=== PATIENT | female | born 1985 | race Caucasian/White ===

== ENCOUNTER 2017-09-01 23:05 | Inpatient (IN) | payer OTHER ==
[2017-09-02] MEDS ORDERED: DEXTROSE 5%-0.45% NACL 1,000 ML IV
[2017-09-02] MEDS ORDERED: VANCOMYCIN IV PER PHARMACY XX
[2017-09-02] MEDS: DEXTROSE 5%-0.9% NACL 1,000 ML IV ×3 (00:18→18:12)
[2017-09-02] MEDS: morphine 2 MG INJ IV (00:18)
[2017-09-02] MEDS: PIPER-TAZO 3.375 GM IV (PMX) 50 ML IVPB ×4 (00:22→18:12)
[2017-09-02] MEDS: HYDROmorphONE 1 MG/ML SYG IV ×4 (01:17→23:30)
[2017-09-02] MEDS: PANTOPRAZOLE 40 MG INJ IV (05:02)
[2017-09-02] MEDS: HYDROmorphONE 2 MG/ML SYG IV ×5 (07:16→21:26)
[2017-09-02] MEDS: VANCOMYCIN 1.5 GM in DEXTROSE 5% 500 ML IVPB ×2 (09:53→20:32)
[2017-09-02] MEDS: morphine (ER) 30 MG TAB PO ×2 (11:47→20:31)
[2017-09-02] MEDS: ENOXAPARIN 40 MG/0.4 ML SYG SC (11:53)
[2017-09-02] MEDS ORDERED: DOCUSATE SODIUM 100 MG CAP PO (12:00)
[2017-09-02 12:18] LABS: ADD MAN DIFF? NO
[2017-09-02 12:20] LABS: BASOPHILS % 0.4 % (0.0-2.0); EOSINOPHILS % 0.7 % (0.0-7.0); HEMATOCRIT 36.7 % (37.0-47.0); HEMOGLOBIN 11.8 g/dl (12.0-16.0); LYMPHOCYTES # 0.6 10^3/ul (0.8-2.9); LYMPHOCYTES % 11.1 % (15.0-51.0); MEAN CORPUSCULAR HEMOGLOBIN 28.9 pg (29.0-33.0); MEAN CORPUSCULAR HGB CONC 32.2 g/dl (32.0-37.0); MEAN PLATELET VOLUME 9.3 fl (7.4-10.4); MONOCYTE # 0.4 10^3/ul (0.3-0.9); MONOCYTES % 6.8 % (0.0-11.0); NEUTROPHIL # 4.4 10^3/ul (1.6-7.5); NEUTROPHILS % 80.6 % (39.0-77.0); PLATELET COUNT 218 10^3/UL (140-415); RED BLOOD COUNT 4.08 10^6/ul (4.20-5.40); RED CELL DISTRIBUTION WIDTH 13.6 % (11.5-14.5)
[2017-09-02 12:20] LABS: WHITE BLOOD COUNT 5.4 10^3/ul (4.8-10.8)
[2017-09-02 12:44] LABS: ANION GAP 11 (8-16); BLOOD UREA NITROGEN 6 mg/dl (7-20); CALCIUM 9.3 mg/dl (8.4-10.2); CARBON DIOXIDE 31 mmol/L (21-31); CHLORIDE 102 mmol/L (97-110); CREATININE 0.57 mg/dl (0.44-1.00); GLUCOSE 97 mg/dl (70-220); POTASSIUM 3.6 mmol/L (3.5-5.1); SODIUM 140 mmol/L (135-144)
[2017-09-02] MEDS: BISACODYL (EC) 5 MG TAB PO (14:06)
[2017-09-02] MEDS: ONDANSETRON 4 MG INJ IV ×2 (14:06→22:11)
[2017-09-02] MEDS: HYDROCODONE/APAP (10/325) TAB PO ×2 (18:15→22:11)
[2017-09-03] MEDS: PIPER-TAZO 3.375 GM IV (PMX) 50 ML IVPB ×4 (00:22→18:00)
[2017-09-03] MEDS: DIPHENHYDRAMINE 50 MG INJ IV (00:27)
[2017-09-03] MEDS: HYDROmorphONE 2 MG/ML SYG IV ×5 (02:02→20:46)
[2017-09-03] MEDS: HYDROCODONE/APAP (10/325) TAB PO ×3 (04:01→12:01)
[2017-09-03 05:35] LABS: CREATININE 0.55 mg/dl (0.44-1.00)
[2017-09-03 05:35] LABS: BLOOD UREA NITROGEN 3 mg/dl (7-20)
[2017-09-03] MEDS: PANTOPRAZOLE (EC) 40 MG TAB PO (06:30)
[2017-09-03] MEDS: morphine (ER) 30 MG TAB PO ×2 (07:48→21:00)
[2017-09-03] MEDS: ENOXAPARIN 40 MG/0.4 ML SYG SC (09:00)
[2017-09-03] MEDS: IOHEXOL 300MG/ML 150 ML BTL (09:31)
[2017-09-03] MEDS: SOD CHLORIDE 0.9% 100 ML (09:31)
[2017-09-03 10:14] LABS: INR 0.99; PROTIME 13.2 Sec (11.9-14.9)
[2017-09-03 10:15] LABS: PARTIAL THROMBOPLASTIN TIME 24.7 Sec (25.0-35.0)
[2017-09-03] MEDS: LIDOCAINE 1% (MPF) 5 ML VIAL SC (11:00)
[2017-09-03] MEDS: LORAZEPAM 2 MG INJ IV ×3 (11:00→21:15)
[2017-09-03] MEDS ORDERED: VITAMIN A & D 5 GM OINT PACKET TOP (12:05)
[2017-09-03] MEDS: DEXTROSE 5%-0.9% NACL 1,000 ML IV (12:07)
[2017-09-03] MEDS: HYDROmorphONE 1 MG/ML SYG IV (16:03)
[2017-09-03] MEDS ORDERED: TRIAMCINOLONE ACET 40 MG/ML INJ (17:30)
[2017-09-03] MEDS ORDERED: DEXAMETHASONE 4 MG/ML 1 ML INJ ×2 (17:30→18:27)
[2017-09-03] MEDS ORDERED: METOCLOPRAMIDE 10 MG INJ (17:40)
[2017-09-03] MEDS ORDERED: MIDAZOLAM 1 MG/ML 2 ML INJ (17:40)
[2017-09-03] MEDS ORDERED: FENTAnyl 50 MCG/ML VIAL (17:41)
[2017-09-03] MEDS ORDERED: PROPOFOL 20 ML (17:41)
[2017-09-03] MEDS: POLYMYXIN/BACITRACIN 1L IRRIG (17:53)
[2017-09-03] MEDS: BUPIVACAINE 0.25%/EPI (SDV) 30 ML INJ (18:48)
[2017-09-03] MEDS ORDERED: MEPERIDINE 25 MG INJ IV (19:00)
[2017-09-03] MEDS ORDERED: DIPHENHYDRAMINE 50 MG INJ IV (19:00)
[2017-09-03] MEDS ORDERED: HYDROmorphONE (0.2 MG/ML) 10ML SYG IV ×2 (19:00)
[2017-09-03] MEDS: HYDROmorphONE (0.2 MG/ML) 10ML SYG IV ×2 (19:48→20:03)
[2017-09-03] MEDS: ONDANSETRON 4 MG INJ IV (19:52)
[2017-09-04] MEDS: DIPHENHYDRAMINE 50 MG INJ IV ×2 (00:47→18:58)
[2017-09-04] MEDS: HYDROCODONE/APAP (10/325) TAB PO ×4 (00:47→21:45)
[2017-09-04] MEDS: PIPER-TAZO 3.375 GM IV (PMX) 50 ML IVPB ×5 (00:47→23:03)
[2017-09-04] MEDS: HYDROmorphONE 2 MG/ML SYG IV ×8 (01:35→23:02)
[2017-09-04] MEDS: morphine (ER) 30 MG TAB PO ×3 (02:52→15:30)
[2017-09-04 05:31] LABS: ADD MAN DIFF? NO
[2017-09-04] MEDS: PANTOPRAZOLE (EC) 40 MG TAB PO (05:42)
[2017-09-04 05:44] LABS: WHITE BLOOD COUNT 6.2 10^3/ul (4.8-10.8)
[2017-09-04 05:44] LABS: ABNORMAL IP MESSAGE 1; HEMATOCRIT 35.4 % (37.0-47.0); HEMOGLOBIN 11.4 g/dl (12.0-16.0); LYMPHOCYTES # 0.3 10^3/ul (0.8-2.9); LYMPHOCYTES % 5.2 % (15.0-51.0); MEAN CORPUSCULAR HEMOGLOBIN 28.2 pg (29.0-33.0); MEAN CORPUSCULAR HGB CONC 32.2 g/dl (32.0-37.0); MEAN CORPUSCULAR VOLUME 87.6 fl (82.0-101.0); MEAN PLATELET VOLUME 9.8 fl (7.4-10.4); MONOCYTE # 0.1 10^3/ul (0.3-0.9); MONOCYTES % 1.1 % (0.0-11.0); NEUTROPHIL # 5.8 10^3/ul (1.6-7.5); NEUTROPHILS % 93.4 % (39.0-77.0); PLATELET COUNT 218 10^3/UL (140-415); RED BLOOD COUNT 4.04 10^6/ul (4.20-5.40); RED CELL DISTRIBUTION WIDTH 12.8 % (11.5-14.5)
[2017-09-04 06:01] LABS: POSITIVE DIFF @See below
[2017-09-04 06:25] LABS: MAGNESIUM 1.7 mg/dl (1.7-2.5)
[2017-09-04 06:25] LABS: PHOSPHORUS 4.2 mg/dl (2.5-4.9)
[2017-09-04 06:40] LABS: ANION GAP 15 (8-16); BLOOD UREA NITROGEN 5 mg/dl (7-20); CALCIUM 9.1 mg/dl (8.4-10.2); CARBON DIOXIDE 27 mmol/L (21-31); CHLORIDE 102 mmol/L (97-110); CREATININE 0.48 mg/dl (0.44-1.00); GLUCOSE 179 mg/dl (70-220); POTASSIUM 4.3 mmol/L (3.5-5.1); SODIUM 140 mmol/L (135-144)
[2017-09-04] MEDS: DEXTROSE 5%-0.9% NACL 1,000 ML IV ×3 (07:19→21:34)
[2017-09-04] MEDS: LORAZEPAM 2 MG INJ IV ×3 (08:30→21:33)
[2017-09-04] MEDS ORDERED: BARIUM SULF 2% 450 ML BTL (BERRY SMOOTHIE) PO ×3 (09:30→11:30)
[2017-09-04] MEDS: BARIUM SULF 2% 450 ML BTL (BERRY SMOOTHIE) PO (12:30)
[2017-09-04] MEDS: ONDANSETRON 4 MG INJ IV (12:32)
[2017-09-04] MEDS: SOD CHLORIDE 0.9% 100 ML (14:20)
[2017-09-04] MEDS: IOHEXOL 300MG/ML 150 ML BTL (14:20)
[2017-09-04] MEDS ORDERED: BISACODYL 10 MG SUPP PR (14:30)
[2017-09-04] MEDS: DULOXETINE 30 MG CAP DR PO (15:13)
[2017-09-04] MEDS: GABAPENTIN 300 MG CAP PO ×2 (15:13→21:34)
[2017-09-05] MEDS: HYDROmorphONE 2 MG/ML SYG IV ×3 (02:57→08:04)
[2017-09-05 05:28] LABS: ADD MAN DIFF? NO
[2017-09-05 05:47] LABS: BASOPHILS % 0.2 % (0.0-2.0); HEMATOCRIT 36.4 % (37.0-47.0); HEMOGLOBIN 11.8 g/dl (12.0-16.0); LYMPHOCYTES # 0.7 10^3/ul (0.8-2.9); LYMPHOCYTES % 12.6 % (15.0-51.0); MEAN CORPUSCULAR HEMOGLOBIN 28.8 pg (29.0-33.0); MEAN CORPUSCULAR HGB CONC 32.4 g/dl (32.0-37.0); MEAN CORPUSCULAR VOLUME 88.8 fl (82.0-101.0); MEAN PLATELET VOLUME 9.7 fl (7.4-10.4); MONOCYTE # 0.4 10^3/ul (0.3-0.9); MONOCYTES % 6.8 % (0.0-11.0); NEUTROPHIL # 4.7 10^3/ul (1.6-7.5); NEUTROPHILS % 80.1 % (39.0-77.0); PLATELET COUNT 220 10^3/UL (140-415); RED CELL DISTRIBUTION WIDTH 13.2 % (11.5-14.5)
[2017-09-05 05:47] LABS: WHITE BLOOD COUNT 5.9 10^3/ul (4.8-10.8)
[2017-09-05] MEDS: PANTOPRAZOLE (EC) 40 MG TAB PO (05:49)
[2017-09-05] MEDS: PIPER-TAZO 3.375 GM IV (PMX) 50 ML IVPB (05:49)
[2017-09-05 06:27] LABS: ANION GAP 17 (8-16); BLOOD UREA NITROGEN 4 mg/dl (7-20); CARBON DIOXIDE 28 mmol/L (21-31); CHLORIDE 106 mmol/L (97-110); CREATININE 0.56 mg/dl (0.44-1.00); GLUCOSE 101 mg/dl (70-220); POTASSIUM 3.8 mmol/L (3.5-5.1); SODIUM 147 mmol/L (135-144)
[2017-09-05] MEDS: DEXTROSE 5%-0.9% NACL 1,000 ML IV ×2 (08:00→13:02)
[2017-09-05] MEDS: GABAPENTIN 300 MG CAP PO (08:51)
[2017-09-05] MEDS: DULOXETINE 30 MG CAP DR PO (08:52)
[2017-09-05] MEDS: morphine (ER) 30 MG TAB PO (08:52)
[2017-09-05] MEDS: DOCUSATE SODIUM 100 MG CAP PO (08:52)
[2017-09-05] MEDS: ONDANSETRON 4 MG INJ IV ×2 (08:55→23:43)
[2017-09-05] MEDS: HYDROmorphONE 0.2 MG/ML PCA IV ×4 (10:03→23:47)
[2017-09-05] MEDS: ACETAMINOPHEN 1000MG/100ML IV 100 ML IVPB ×3 (11:13→21:21)
[2017-09-05] MEDS: CYCLOBENZAPRINE 10 MG TAB PO ×3 (11:34→21:21)
[2017-09-06] MEDS: ACETAMINOPHEN 1000MG/100ML IV 100 ML IVPB ×4 (03:11→22:02)
[2017-09-06] MEDS: HYDROmorphONE 0.2 MG/ML PCA IV ×6 (03:23→21:27)
[2017-09-06] MEDS: PANTOPRAZOLE (EC) 40 MG TAB PO (05:17)
[2017-09-06] MEDS ORDERED: morphine (ER) 30 MG TAB PO (07:49)
[2017-09-06] MEDS: DOCUSATE SODIUM 100 MG CAP PO (07:50)
[2017-09-06] MEDS: CYCLOBENZAPRINE 10 MG TAB PO ×3 (07:50→20:00)
[2017-09-06] MEDS: DULOXETINE 30 MG CAP DR PO (07:50)
[2017-09-06] MEDS: morphine (ER) 30 MG TAB PO (07:51)
[2017-09-06] MEDS: DEXTROSE 5%-0.9% NACL 1,000 ML IV ×2 (08:35→23:48)
[2017-09-06] MEDS: LORAZEPAM 2 MG INJ IV ×2 (11:58→21:17)
[2017-09-06] MEDS: ONDANSETRON 4 MG INJ IV (18:14)
[2017-09-07] MEDS: DIPHENHYDRAMINE 50 MG INJ IV (01:07)
[2017-09-07] MEDS: HYDROmorphONE 0.2 MG/ML PCA IV ×7 (01:11→23:50)
[2017-09-07] MEDS: DEXTROSE 5%-0.9% NACL 1,000 ML IV ×2 (01:12→18:40)
[2017-09-07] MEDS: ACETAMINOPHEN 1000MG/100ML IV 100 ML IVPB ×4 (03:32→21:21)
[2017-09-07] MEDS: LORAZEPAM 2 MG INJ IV ×2 (05:43→19:57)
[2017-09-07] MEDS: PANTOPRAZOLE (EC) 40 MG TAB PO (05:43)
[2017-09-07 06:09] LABS: ALANINE AMINOTRANSFERASE 24 IU/L (13-69); ALBUMIN 3.2 g/dl (3.3-4.9); ALBUMIN/GLOBULIN RATIO 1.18; ALKALINE PHOSPHATASE 84 IU/L (42-121); ANION GAP 11 (8-16); ASPARTATE AMINO TRANSFERASE 11 IU/L (15-46); BLOOD UREA NITROGEN 7 mg/dl (7-20); CALCIUM 8.3 mg/dl (8.4-10.2); CARBON DIOXIDE 30 mmol/L (21-31); CHLORIDE 103 mmol/L (97-110); CREATININE 0.53 mg/dl (0.44-1.00); GLUCOSE 88 mg/dl (70-220); POTASSIUM 3.6 mmol/L (3.5-5.1); SODIUM 140 mmol/L (135-144); TOTAL PROTEIN 5.9 g/dl (6.1-8.1)
[2017-09-07] MEDS: CYCLOBENZAPRINE 10 MG TAB PO ×3 (09:16→21:21)
[2017-09-07] MEDS: DULOXETINE 30 MG CAP DR PO (09:16)
[2017-09-07] MEDS: DOCUSATE SODIUM 100 MG CAP PO (09:16)
[2017-09-07] MEDS: morphine (ER) 30 MG TAB PO (09:19)
[2017-09-07] MEDS: ONDANSETRON 4 MG INJ IV (10:43)
[2017-09-07] MEDS: ENOXAPARIN 40 MG/0.4 ML SYG SC (12:28)
[2017-09-08] MEDS: HYDROmorphONE 0.2 MG/ML PCA IV ×7 (02:44→23:41)
[2017-09-08] MEDS: ACETAMINOPHEN 1000MG/100ML IV 100 ML IVPB ×4 (04:05→21:16)
[2017-09-08] MEDS: DIPHENHYDRAMINE 50 MG INJ IV (05:30)
[2017-09-08] MEDS: PANTOPRAZOLE (EC) 40 MG TAB PO (05:41)
[2017-09-08] MEDS: HYDROmorphONE 1 MG/ML SYG IV (06:20)
[2017-09-08] MEDS: DEXTROSE 5%-0.9% NACL 1,000 ML IV (08:35)
[2017-09-08] MEDS: DOCUSATE SODIUM 100 MG CAP PO (08:36)
[2017-09-08] MEDS: morphine (ER) 30 MG TAB PO (08:36)
[2017-09-08] MEDS: DULOXETINE 30 MG CAP DR PO (08:36)
[2017-09-08] MEDS: CYCLOBENZAPRINE 10 MG TAB PO ×3 (08:36→21:16)
[2017-09-08] MEDS: LORAZEPAM 2 MG INJ IV (09:24)
[2017-09-08 12:25] LABS: ALANINE AMINOTRANSFERASE 28 IU/L (13-69); ALBUMIN 3.4 g/dl (3.3-4.9); ALBUMIN/GLOBULIN RATIO 1.21; ALKALINE PHOSPHATASE 87 IU/L (42-121); ANION GAP 14 (8-16); ASPARTATE AMINO TRANSFERASE 14 IU/L (15-46); BLOOD UREA NITROGEN 3 mg/dl (7-20); CALCIUM 8.6 mg/dl (8.4-10.2); CARBON DIOXIDE 29 mmol/L (21-31); CHLORIDE 102 mmol/L (97-110); CREATININE 0.47 mg/dl (0.44-1.00); GLUCOSE 107 mg/dl (70-220); POTASSIUM 3.8 mmol/L (3.5-5.1); SODIUM 141 mmol/L (135-144); TOTAL PROTEIN 6.2 g/dl (6.1-8.1)
[2017-09-09] MEDS: LORAZEPAM 2 MG INJ IV ×2 (00:28→08:29)
[2017-09-09] MEDS: HYDROmorphONE 0.2 MG/ML PCA IV ×7 (02:34→22:09)
[2017-09-09] MEDS: ACETAMINOPHEN 1000MG/100ML IV 100 ML IVPB ×4 (02:39→21:38)
[2017-09-09 05:25] LABS: ADD MAN DIFF? NO
[2017-09-09 05:31] LABS: ABNORMAL IP MESSAGE 1; BASOPHILS % 0.4 % (0.0-2.0); EOSINOPHILS # 0.1 10^3/ul (0.0-0.5); EOSINOPHILS % 1.8 % (0.0-7.0); HEMATOCRIT 34.6 % (37.0-47.0); HEMOGLOBIN 11.5 g/dl (12.0-16.0); LYMPHOCYTES # 0.4 10^3/ul (0.8-2.9); LYMPHOCYTES % 12.7 % (15.0-51.0); MEAN CORPUSCULAR HGB CONC 33.2 g/dl (32.0-37.0); MEAN CORPUSCULAR VOLUME 87.4 fl (82.0-101.0); MEAN PLATELET VOLUME 9.3 fl (7.4-10.4); MONOCYTE # 0.4 10^3/ul (0.3-0.9); MONOCYTES % 12.7 % (0.0-11.0); PLATELET COUNT 176 10^3/UL (140-415); RED BLOOD COUNT 3.96 10^6/ul (4.20-5.40); RED CELL DISTRIBUTION WIDTH 13.2 % (11.5-14.5)
[2017-09-09 05:31] LABS: WHITE BLOOD COUNT 2.8 10^3/ul (4.8-10.8)
[2017-09-09 05:35] LABS: POSITIVE DIFF @See below
[2017-09-09] MEDS: PANTOPRAZOLE (EC) 40 MG TAB PO (05:55)
[2017-09-09] MEDS: morphine (ER) 30 MG TAB PO (08:29)
[2017-09-09] MEDS: CYCLOBENZAPRINE 10 MG TAB PO ×3 (08:29→21:38)
[2017-09-09] MEDS: DULOXETINE 30 MG CAP DR PO (08:31)
[2017-09-09] MEDS: DOCUSATE SODIUM 100 MG CAP PO (08:31)
[2017-09-09 18:23] LABS: ADD UMIC NO; UR ASCORBIC ACID NEGATIVE (NEGATIVE); UR BILIRUBIN (Dip) NEGATIVE (NEGATIVE); UR BLOOD (Dip) NEGATIVE (NEGATIVE); UR CLARITY CLEAR (CLEAR); UR COLOR STRAW (YELLOW); UR GLUCOSE (Dip) NEGATIVE (NEGATIVE); UR KETONES (Dip) NEGATIVE (NEGATIVE); UR LEUKOCYTE ESTERASE (Dip) NEGATIVE Leu/ul (NEGATIVE); UR NITRITE (Dip) NEGATIVE (NEGATIVE); UR SPECIFIC GRAVITY (Dip) 1.006 (1.003-1.030); UR TOTAL PROTEIN (Dip) NEGATIVE (NEGATIVE); UR UROBILINOGEN (Dip) NEGATIVE (NEGATIVE)
[2017-09-09] MEDS ORDERED: METHYLPREDNISOLONE 125 MG INJ IV (19:00)
[2017-09-09] MEDS: SOD CHLORIDE 0.9% 1,000 ML IV (19:05)
[2017-09-09] MEDS: DIPHENHYDRAMINE 50 MG INJ IV (23:39)
[2017-09-09] MEDS: DEXAMETHASONE IV (23:43)
[2017-09-09] MEDS: ONDANSETRON IV (23:43)
[2017-09-09] MEDS: DEXTROSE 5% IV (23:43)
[2017-09-10] MEDS: HYDROmorphONE 0.2 MG/ML PCA IV ×8 (00:16→23:55)
[2017-09-10] MEDS: MESNA IV ×2 (00:39→03:31)
[2017-09-10] MEDS: SOD CHLORIDE 0.9% IV ×4 (00:39→03:32)
[2017-09-10] MEDS: IFOSFAMIDE IV (00:40)
[2017-09-10] MEDS: LORAZEPAM 2 MG INJ IV ×3 (01:26→21:21)
[2017-09-10] MEDS: DOXORUBICIN IV (03:32)
[2017-09-10] MEDS: ACETAMINOPHEN 1000MG/100ML IV 100 ML IVPB ×4 (04:28→21:29)
[2017-09-10 05:09] LABS: ADD MAN DIFF? NO
[2017-09-10 05:12] LABS: ABNORMAL IP MESSAGE 1; BASOPHILS % 0.3 % (0.0-2.0); EOSINOPHILS % 0.3 % (0.0-7.0); HEMATOCRIT 40.1 % (37.0-47.0); HEMOGLOBIN 12.9 g/dl (12.0-16.0); LYMPHOCYTES # 0.3 10^3/ul (0.8-2.9); LYMPHOCYTES % 8.7 % (15.0-51.0); MEAN CORPUSCULAR HEMOGLOBIN 28.2 pg (29.0-33.0); MEAN CORPUSCULAR HGB CONC 32.2 g/dl (32.0-37.0); MEAN CORPUSCULAR VOLUME 87.6 fl (82.0-101.0); MEAN PLATELET VOLUME 9.3 fl (7.4-10.4); MONOCYTE # 0.1 10^3/ul (0.3-0.9); MONOCYTES % 2.2 % (0.0-11.0); NEUTROPHIL # 2.8 10^3/ul (1.6-7.5); NEUTROPHILS % 88.5 % (39.0-77.0); PLATELET COUNT 172 10^3/UL (140-415); RED BLOOD COUNT 4.58 10^6/ul (4.20-5.40); RED CELL DISTRIBUTION WIDTH 13.4 % (11.5-14.5)
[2017-09-10 05:12] LABS: WHITE BLOOD COUNT 3.1 10^3/ul (4.8-10.8)
[2017-09-10 05:27] LABS: POSITIVE DIFF @See below
[2017-09-10] MEDS: SOD CHLORIDE 0.9% 1,000 ML IV ×2 (05:57→16:17)
[2017-09-10] MEDS: PANTOPRAZOLE (EC) 40 MG TAB PO (05:57)
[2017-09-10 08:46] LABS: ADD UMIC NO; UR ASCORBIC ACID NEGATIVE (NEGATIVE); UR BILIRUBIN (Dip) NEGATIVE (NEGATIVE); UR BLOOD (Dip) NEGATIVE (NEGATIVE); UR CLARITY CLEAR (CLEAR); UR COLOR STRAW (YELLOW); UR GLUCOSE (Dip) 1+ mg/dL (NEGATIVE); UR KETONES (Dip) 1+ mg/dL (NEGATIVE); UR LEUKOCYTE ESTERASE (Dip) NEGATIVE Leu/ul (NEGATIVE); UR NITRITE (Dip) NEGATIVE (NEGATIVE); UR SPECIFIC GRAVITY (Dip) 1.005 (1.003-1.030); UR TOTAL PROTEIN (Dip) NEGATIVE (NEGATIVE); UR UROBILINOGEN (Dip) NEGATIVE (NEGATIVE)
[2017-09-10] MEDS: DULOXETINE 30 MG CAP DR PO (09:23)
[2017-09-10] MEDS: DOCUSATE SODIUM 100 MG CAP PO (09:23)
[2017-09-10] MEDS: CYCLOBENZAPRINE 10 MG TAB PO ×3 (09:23→21:05)
[2017-09-10] MEDS: morphine (ER) 30 MG TAB PO (09:23)
[2017-09-11] MEDS: SOD CHLORIDE 0.9% 1,000 ML IV ×3 (01:25→21:00)
[2017-09-11] MEDS: HYDROmorphONE 0.2 MG/ML PCA IV ×8 (02:05→20:58)
[2017-09-11] MEDS: ACETAMINOPHEN 1000MG/100ML IV 100 ML IVPB ×4 (02:25→21:00)
[2017-09-11] MEDS: DEXAMETHASONE IV (03:42)
[2017-09-11] MEDS: ONDANSETRON IV (03:42)
[2017-09-11] MEDS: DIPHENHYDRAMINE 50 MG INJ IV (03:42)
[2017-09-11] MEDS: DEXTROSE 5% IV (03:42)
[2017-09-11] MEDS: IFOSFAMIDE IV (04:20)
[2017-09-11] MEDS: SOD CHLORIDE 0.9% IV ×3 (04:20→07:41)
[2017-09-11 05:19] LABS: ADD MAN DIFF? NO
[2017-09-11 05:24] LABS: WHITE BLOOD COUNT 3.2 10^3/ul (4.8-10.8)
[2017-09-11 05:24] LABS: ABNORMAL IP MESSAGE 1; HEMATOCRIT 36.9 % (37.0-47.0); HEMOGLOBIN 11.9 g/dl (12.0-16.0); LYMPHOCYTES # 0.5 10^3/ul (0.8-2.9); LYMPHOCYTES % 16.8 % (15.0-51.0); MEAN CORPUSCULAR HEMOGLOBIN 27.9 pg (29.0-33.0); MEAN CORPUSCULAR HGB CONC 32.2 g/dl (32.0-37.0); MEAN CORPUSCULAR VOLUME 86.6 fl (82.0-101.0); MEAN PLATELET VOLUME 8.9 fl (7.4-10.4); MONOCYTE # 0.4 10^3/ul (0.3-0.9); MONOCYTES % 11.8 % (0.0-11.0); NEUTROPHIL # 2.3 10^3/ul (1.6-7.5); NEUTROPHILS % 70.8 % (39.0-77.0); PLATELET COUNT 158 10^3/UL (140-415); RED BLOOD COUNT 4.26 10^6/ul (4.20-5.40); RED CELL DISTRIBUTION WIDTH 13.2 % (11.5-14.5)
[2017-09-11 05:58] LABS: POSITIVE DIFF @See below
[2017-09-11 06:02] LABS: PHOSPHORUS 3.1 mg/dl (2.5-4.9)
[2017-09-11 06:02] LABS: MAGNESIUM 1.7 mg/dl (1.7-2.5)
[2017-09-11 06:04] LABS: ANION GAP 15 (8-16); BLOOD UREA NITROGEN 5 mg/dl (7-20); CALCIUM 8.6 mg/dl (8.4-10.2); CARBON DIOXIDE 28 mmol/L (21-31); CHLORIDE 104 mmol/L (97-110); CREATININE 0.48 mg/dl (0.44-1.00); GLUCOSE 95 mg/dl (70-220); SODIUM 143 mmol/L (135-144)
[2017-09-11] MEDS: PANTOPRAZOLE (EC) 40 MG TAB PO (06:47)
[2017-09-11 06:51] LABS: ADD UMIC NO; UR ASCORBIC ACID NEGATIVE (NEGATIVE); UR BILIRUBIN (Dip) NEGATIVE (NEGATIVE); UR BLOOD (Dip) NEGATIVE (NEGATIVE); UR CLARITY CLEAR (CLEAR); UR COLOR STRAW (YELLOW); UR GLUCOSE (Dip) 1+ mg/dL (NEGATIVE); UR KETONES (Dip) TRACE mg/dL (NEGATIVE); UR LEUKOCYTE ESTERASE (Dip) NEGATIVE Leu/ul (NEGATIVE); UR NITRITE (Dip) NEGATIVE (NEGATIVE); UR SPECIFIC GRAVITY (Dip) 1.008 (1.003-1.030); UR TOTAL PROTEIN (Dip) NEGATIVE (NEGATIVE); UR UROBILINOGEN (Dip) NEGATIVE (NEGATIVE)
[2017-09-11] MEDS: MESNA IV (07:37)
[2017-09-11] MEDS: DOXORUBICIN IV (07:41)
[2017-09-11] MEDS: morphine (ER) 30 MG TAB PO ×2 (07:50→21:01)
[2017-09-11] MEDS: CYCLOBENZAPRINE 10 MG TAB PO ×3 (07:50→21:00)
[2017-09-11] MEDS: DULOXETINE 30 MG CAP DR PO (09:20)
[2017-09-11] MEDS: DOCUSATE SODIUM 100 MG CAP PO (09:20)
[2017-09-11] MEDS ORDERED: NALOXONE (0.4 MG/ML) INJ IV (15:30)
[2017-09-11] MEDS ORDERED: HYDROmorphONE 1 MG/ML SYG IV (15:30)
[2017-09-11] MEDS: LORAZEPAM 2 MG INJ IV ×2 (16:02→21:07)
[2017-09-11] MEDS: GABAPENTIN 300 MG CAP PO (21:00)
[2017-09-11] MEDS: ONDANSETRON 4 MG INJ IV (21:07)
[2017-09-12] MEDS: HYDROmorphONE 0.2 MG/ML PCA IV ×8 (00:29→23:49)
[2017-09-12] MEDS: SOD CHLORIDE 0.9% 1,000 ML IV ×3 (03:22→15:10)
[2017-09-12] MEDS: ACETAMINOPHEN 1000MG/100ML IV 100 ML IVPB ×4 (03:28→20:34)
[2017-09-12] MEDS: DIPHENHYDRAMINE 50 MG INJ IV ×2 (03:28→11:01)
[2017-09-12 05:24] LABS: ADD MAN DIFF? NO
[2017-09-12 05:34] LABS: WHITE BLOOD COUNT 3.1 10^3/ul (4.8-10.8)
[2017-09-12 05:34] LABS: ABNORMAL IP MESSAGE 1; BASOPHILS % 0.3 % (0.0-2.0); HEMATOCRIT 37.3 % (37.0-47.0); HEMOGLOBIN 12.1 g/dl (12.0-16.0); LYMPHOCYTES # 0.5 10^3/ul (0.8-2.9); LYMPHOCYTES % 17.5 % (15.0-51.0); MEAN CORPUSCULAR HEMOGLOBIN 28.5 pg (29.0-33.0); MEAN CORPUSCULAR HGB CONC 32.4 g/dl (32.0-37.0); MEAN CORPUSCULAR VOLUME 87.8 fl (82.0-101.0); MEAN PLATELET VOLUME 9.6 fl (7.4-10.4); MONOCYTE # 0.3 10^3/ul (0.3-0.9); MONOCYTES % 10.7 % (0.0-11.0); NEUTROPHIL # 2.2 10^3/ul (1.6-7.5); NEUTROPHILS % 71.2 % (39.0-77.0); PLATELET COUNT 166 10^3/UL (140-415); RED BLOOD COUNT 4.25 10^6/ul (4.20-5.40); RED CELL DISTRIBUTION WIDTH 13.6 % (11.5-14.5)
[2017-09-12 05:50] LABS: POSITIVE DIFF @See below
[2017-09-12] MEDS: PANTOPRAZOLE (EC) 40 MG TAB PO (05:53)
[2017-09-12 06:05] LABS: ALANINE AMINOTRANSFERASE 24 IU/L (13-69); ALBUMIN 3.7 g/dl (3.3-4.9); ALBUMIN/GLOBULIN RATIO 1.12; ALKALINE PHOSPHATASE 88 IU/L (42-121); ANION GAP 15 (8-16); ASPARTATE AMINO TRANSFERASE 18 IU/L (15-46); BLOOD UREA NITROGEN 6 mg/dl (7-20); CARBON DIOXIDE 32 mmol/L (21-31); CHLORIDE 101 mmol/L (97-110); CREATININE 0.48 mg/dl (0.44-1.00); GLUCOSE 80 mg/dl (70-220); POTASSIUM 3.6 mmol/L (3.5-5.1); SODIUM 144 mmol/L (135-144)
[2017-09-12 07:06] LABS: ADD UMIC NO; UR ASCORBIC ACID NEGATIVE (NEGATIVE); UR BILIRUBIN (Dip) NEGATIVE (NEGATIVE); UR BLOOD (Dip) NEGATIVE (NEGATIVE); UR CLARITY CLEAR (CLEAR); UR COLOR STRAW (YELLOW); UR GLUCOSE (Dip) 1+ mg/dL (NEGATIVE); UR KETONES (Dip) 1+ mg/dL (NEGATIVE); UR LEUKOCYTE ESTERASE (Dip) NEGATIVE Leu/ul (NEGATIVE); UR NITRITE (Dip) NEGATIVE (NEGATIVE); UR SPECIFIC GRAVITY (Dip) 1.008 (1.003-1.030); UR TOTAL PROTEIN (Dip) NEGATIVE (NEGATIVE); UR UROBILINOGEN (Dip) NEGATIVE (NEGATIVE)
[2017-09-12] MEDS: morphine (ER) 30 MG TAB PO ×2 (08:40→20:29)
[2017-09-12] MEDS: DOCUSATE SODIUM 100 MG CAP PO (08:40)
[2017-09-12] MEDS: DULOXETINE 30 MG CAP DR PO (08:41)
[2017-09-12] MEDS: CYCLOBENZAPRINE 10 MG TAB PO ×3 (08:41→20:29)
[2017-09-12] MEDS: GABAPENTIN 300 MG CAP PO ×2 (08:41→20:29)
[2017-09-12] MEDS: DEXAMETHASONE IV (11:01)
[2017-09-12] MEDS: ONDANSETRON IV (11:01)
[2017-09-12] MEDS: DEXTROSE 5% IV (11:01)
[2017-09-12] MEDS: MESNA IV (11:32)
[2017-09-12] MEDS: SOD CHLORIDE 0.9% IV ×3 (11:32→14:20)
[2017-09-12] MEDS: IFOSFAMIDE IV (11:38)
[2017-09-12] MEDS: DOXORUBICIN IV (14:20)
[2017-09-12] MEDS: LIDOCAINE 5% PATCH TD (17:16)
[2017-09-13] MEDS: LORAZEPAM 2 MG INJ IV ×3 (00:26→21:50)
[2017-09-13] MEDS: SOD CHLORIDE 0.9% 1,000 ML IV ×4 (03:00→16:51)
[2017-09-13] MEDS: ACETAMINOPHEN 1000MG/100ML IV 100 ML IVPB ×4 (04:09→21:20)
[2017-09-13] MEDS: PANTOPRAZOLE (EC) 40 MG TAB PO (05:03)
[2017-09-13] MEDS: HYDROmorphONE 0.2 MG/ML PCA IV ×6 (05:30→21:34)
[2017-09-13 05:50] LABS: ADD MAN DIFF? NO
[2017-09-13 06:03] LABS: ABNORMAL IP MESSAGE 1; HEMATOCRIT 38.9 % (37.0-47.0); HEMOGLOBIN 12.7 g/dl (12.0-16.0); LYMPHOCYTES # 0.4 10^3/ul (0.8-2.9); LYMPHOCYTES % 16.1 % (15.0-51.0); MEAN CORPUSCULAR HEMOGLOBIN 28.2 pg (29.0-33.0); MEAN CORPUSCULAR HGB CONC 32.6 g/dl (32.0-37.0); MEAN CORPUSCULAR VOLUME 86.4 fl (82.0-101.0); MEAN PLATELET VOLUME 9.1 fl (7.4-10.4); MONOCYTE # 0.2 10^3/ul (0.3-0.9); MONOCYTES % 6.9 % (0.0-11.0); NEUTROPHIL # 2.1 10^3/ul (1.6-7.5); PLATELET COUNT 172 10^3/UL (140-415); RED CELL DISTRIBUTION WIDTH 13.6 % (11.5-14.5)
[2017-09-13 06:03] LABS: WHITE BLOOD COUNT 2.7 10^3/ul (4.8-10.8)
[2017-09-13 06:28] LABS: POSITIVE DIFF @See below
[2017-09-13 06:32] LABS: ADD UMIC NO; UR ASCORBIC ACID NEGATIVE (NEGATIVE); UR BILIRUBIN (Dip) NEGATIVE (NEGATIVE); UR BLOOD (Dip) NEGATIVE (NEGATIVE); UR CLARITY CLEAR (CLEAR); UR COLOR STRAW (YELLOW); UR GLUCOSE (Dip) 1+ mg/dL (NEGATIVE); UR KETONES (Dip) 1+ mg/dL (NEGATIVE); UR LEUKOCYTE ESTERASE (Dip) NEGATIVE Leu/ul (NEGATIVE); UR NITRITE (Dip) NEGATIVE (NEGATIVE); UR SPECIFIC GRAVITY (Dip) 1.009 (1.003-1.030); UR TOTAL PROTEIN (Dip) NEGATIVE (NEGATIVE); UR UROBILINOGEN (Dip) NEGATIVE (NEGATIVE)
[2017-09-13 06:43] LABS: ALANINE AMINOTRANSFERASE 23 IU/L (13-69); ALBUMIN 4.1 g/dl (3.3-4.9); ALBUMIN/GLOBULIN RATIO 1.32; ALKALINE PHOSPHATASE 114 IU/L (42-121); ANION GAP 18 (8-16); ASPARTATE AMINO TRANSFERASE 14 IU/L (15-46); BLOOD UREA NITROGEN 8 mg/dl (7-20); CALCIUM 9.1 mg/dl (8.4-10.2); CARBON DIOXIDE 26 mmol/L (21-31); CHLORIDE 102 mmol/L (97-110); CREATININE 0.47 mg/dl (0.44-1.00); GLUCOSE 86 mg/dl (70-220); POTASSIUM 4.1 mmol/L (3.5-5.1); SODIUM 142 mmol/L (135-144); TOTAL PROTEIN 7.2 g/dl (6.1-8.1)
[2017-09-13] MEDS: GABAPENTIN 300 MG CAP PO ×2 (08:49→21:19)
[2017-09-13] MEDS: CYCLOBENZAPRINE 10 MG TAB PO ×3 (08:49→21:19)
[2017-09-13] MEDS: morphine (ER) 30 MG TAB PO ×2 (08:49→21:19)
[2017-09-13] MEDS: DULOXETINE 30 MG CAP DR PO (08:49)
[2017-09-13] MEDS: DOCUSATE SODIUM 100 MG CAP PO (08:56)
[2017-09-13] MEDS: MESNA IV (13:41)
[2017-09-13] MEDS: SOD CHLORIDE 0.9% IV ×3 (13:41→23:00)
[2017-09-13] MEDS: LIDOCAINE 5% PATCH TD (18:24)
[2017-09-13] MEDS: DEXAMETHASONE IV ×2 (21:31→22:00)
[2017-09-13] MEDS: DEXTROSE 5% IV ×2 (21:31→22:00)
[2017-09-13] MEDS: DIPHENHYDRAMINE 50 MG INJ IV ×2 (21:31→22:00)
[2017-09-13] MEDS: ONDANSETRON IV ×2 (21:31→22:00)
[2017-09-13] MEDS: IFOSFAMIDE IV ×2 (22:23→23:00)
[2017-09-14] MEDS: HYDROmorphONE 0.2 MG/ML PCA IV ×6 (00:01→20:17)
[2017-09-14] MEDS: MESNA IV ×2 (01:00→19:20)
[2017-09-14] MEDS: SOD CHLORIDE 0.9% IV ×3 (01:00→23:18)
[2017-09-14] MEDS: ACETAMINOPHEN 1000MG/100ML IV 100 ML IVPB ×4 (03:30→21:38)
[2017-09-14] MEDS: LORAZEPAM 2 MG INJ IV ×5 (04:41→23:53)
[2017-09-14] MEDS: SOD CHLORIDE 0.9% 1,000 ML IV ×2 (04:42→18:06)
[2017-09-14 05:04] LABS: ADD MAN DIFF? NO
[2017-09-14 05:13] LABS: ABNORMAL IP MESSAGE 1; HEMATOCRIT 39.8 % (37.0-47.0); HEMOGLOBIN 12.7 g/dl (12.0-16.0); LYMPHOCYTES # 0.1 10^3/ul (0.8-2.9); LYMPHOCYTES % 3.1 % (15.0-51.0); MEAN CORPUSCULAR HEMOGLOBIN 27.9 pg (29.0-33.0); MEAN CORPUSCULAR HGB CONC 31.9 g/dl (32.0-37.0); MEAN CORPUSCULAR VOLUME 87.5 fl (82.0-101.0); MEAN PLATELET VOLUME 9.1 fl (7.4-10.4); MONOCYTES % 0.5 % (0.0-11.0); NEUTROPHILS % 95.9 % (39.0-77.0); PLATELET COUNT 139 10^3/UL (140-415); RED BLOOD COUNT 4.55 10^6/ul (4.20-5.40); RED CELL DISTRIBUTION WIDTH 13.4 % (11.5-14.5)
[2017-09-14 05:13] LABS: WHITE BLOOD COUNT 4.2 10^3/ul (4.8-10.8)
[2017-09-14 05:20] LABS: POSITIVE DIFF @See below
[2017-09-14 05:39] LABS: ALANINE AMINOTRANSFERASE 28 IU/L (13-69); ALBUMIN 3.8 g/dl (3.3-4.9); ALBUMIN/GLOBULIN RATIO 1.18; ALKALINE PHOSPHATASE 99 IU/L (42-121); ANION GAP 16 (8-16); ASPARTATE AMINO TRANSFERASE 14 IU/L (15-46); BLOOD UREA NITROGEN 10 mg/dl (7-20); CALCIUM 9.1 mg/dl (8.4-10.2); CARBON DIOXIDE 26 mmol/L (21-31); CHLORIDE 105 mmol/L (97-110); CREATININE 0.45 mg/dl (0.44-1.00); GLUCOSE 117 mg/dl (70-220); POTASSIUM 4.3 mmol/L (3.5-5.1); SODIUM 143 mmol/L (135-144)
[2017-09-14 05:53] LABS: ANION GAP 15 (8-16); BLOOD UREA NITROGEN 10 mg/dl (7-20); CALCIUM 9.2 mg/dl (8.4-10.2); CARBON DIOXIDE 25 mmol/L (21-31); CHLORIDE 106 mmol/L (97-110); CREATININE 0.45 mg/dl (0.44-1.00); GLUCOSE 116 mg/dl (70-220); POTASSIUM 4.4 mmol/L (3.5-5.1); SODIUM 142 mmol/L (135-144)
[2017-09-14 05:59] LABS: PHOSPHORUS 2.9 mg/dl (2.5-4.9)
[2017-09-14] MEDS: PANTOPRAZOLE (EC) 40 MG TAB PO (07:20)
[2017-09-14] MEDS: DULOXETINE 30 MG CAP DR PO (09:21)
[2017-09-14] MEDS: morphine (ER) 30 MG TAB PO ×2 (09:21→21:37)
[2017-09-14] MEDS: CYCLOBENZAPRINE 10 MG TAB PO ×3 (09:21→21:37)
[2017-09-14] MEDS: GABAPENTIN 300 MG CAP PO ×2 (09:21→21:37)
[2017-09-14] MEDS: DOCUSATE SODIUM 100 MG CAP PO (09:21)
[2017-09-14] MEDS: LIDOCAINE 5% PATCH TD (18:06)
[2017-09-14 19:36] LABS: ADD UMIC NO; UR ASCORBIC ACID NEGATIVE (NEGATIVE); UR BILIRUBIN (Dip) NEGATIVE (NEGATIVE); UR BLOOD (Dip) NEGATIVE (NEGATIVE); UR CLARITY CLEAR (CLEAR); UR COLOR STRAW (YELLOW); UR GLUCOSE (Dip) 1+ mg/dL (NEGATIVE); UR KETONES (Dip) TRACE mg/dL (NEGATIVE); UR LEUKOCYTE ESTERASE (Dip) NEGATIVE Leu/ul (NEGATIVE); UR NITRITE (Dip) NEGATIVE (NEGATIVE); UR SPECIFIC GRAVITY (Dip) 1.009 (1.003-1.030); UR TOTAL PROTEIN (Dip) NEGATIVE (NEGATIVE); UR UROBILINOGEN (Dip) NEGATIVE (NEGATIVE)
[2017-09-14] MEDS: DIPHENHYDRAMINE 50 MG INJ IV (21:37)
[2017-09-14] MEDS: DEXAMETHASONE IV (22:19)
[2017-09-14] MEDS: ONDANSETRON IV (22:19)
[2017-09-14] MEDS: DEXTROSE 5% IV (22:19)
[2017-09-14] MEDS: IFOSFAMIDE IV (23:18)
[2017-09-15] MEDS ORDERED: DOCOSANOL 2 GM CREAM TOP
[2017-09-15] MEDS: HYDROmorphONE 0.2 MG/ML PCA IV ×3 (00:07→07:35)
[2017-09-15] MEDS: DOCOSANOL 2 GM CREAM TOP (01:14)
[2017-09-15] MEDS: DIPHENHYDRAMINE 50 MG INJ IV ×2 (02:39→22:51)
[2017-09-15] MEDS: ACETAMINOPHEN 1000MG/100ML IV 100 ML IVPB ×4 (04:01→20:41)
[2017-09-15 05:44] LABS: WHITE BLOOD COUNT 3.4 10^3/ul (4.8-10.8)
[2017-09-15 05:44] LABS: ABNORMAL IP MESSAGE 1; HEMATOCRIT 37.6 % (37.0-47.0); MEAN CORPUSCULAR HEMOGLOBIN 27.8 pg (29.0-33.0); MEAN CORPUSCULAR HGB CONC 31.9 g/dl (32.0-37.0); MEAN CORPUSCULAR VOLUME 87.2 fl (82.0-101.0); MEAN PLATELET VOLUME 9.5 fl (7.4-10.4); PLATELET COUNT 143 10^3/UL (140-415); RED BLOOD COUNT 4.31 10^6/ul (4.20-5.40); RED CELL DISTRIBUTION WIDTH 13.5 % (11.5-14.5)
[2017-09-15 05:50] LABS: ADD MAN DIFF? YES; POSITIVE DIFF @See below
[2017-09-15] MEDS: PANTOPRAZOLE (EC) 40 MG TAB PO (05:54)
[2017-09-15] MEDS: SOD CHLORIDE 0.9% 1,000 ML IV ×2 (05:55→15:29)
[2017-09-15 06:07] LABS: MAGNESIUM 1.8 mg/dl (1.7-2.5)
[2017-09-15 06:07] LABS: PHOSPHORUS 2.1 mg/dl (2.5-4.9)
[2017-09-15 06:11] LABS: ANION GAP 12 (8-16); BLOOD UREA NITROGEN 11 mg/dl (7-20); CALCIUM 8.7 mg/dl (8.4-10.2); CARBON DIOXIDE 24 mmol/L (21-31); CHLORIDE 107 mmol/L (97-110); CREATININE 0.45 mg/dl (0.44-1.00); GLUCOSE 135 mg/dl (70-220); POTASSIUM 4.2 mmol/L (3.5-5.1); SODIUM 139 mmol/L (135-144)
[2017-09-15] MEDS: DULOXETINE 30 MG CAP DR PO (08:44)
[2017-09-15] MEDS: CYCLOBENZAPRINE 10 MG TAB PO ×3 (08:45→20:32)
[2017-09-15] MEDS: DOCUSATE SODIUM 100 MG CAP PO (08:45)
[2017-09-15] MEDS: GABAPENTIN 300 MG CAP PO ×3 (08:46→21:57)
[2017-09-15 09:04] LABS: ANISOCYTOSIS 1+ (0-0); BAND NEUTROPHILS #M 0.2 10^3/ul (0.0-0.6); BAND NEUTROPHILS % (M) 6 % (0-4); HYPOCHROMASIA 1+ (0-0); LYMPHOCYTES % (M) 1 % (15-51); METAMYELOCYTES %M 1 % (0-0); OVALOCYTES 1+ (0-0); PLATELET ESTIMATE NORMAL; REACTIVE LYMPHOCYTES% (M) 1 % (0-0); SEG NEUT #M 3.1 10^3/ul (1.7-7.5); SEGMENTED NEUTROPHILS (M) % 91 % (39-77); SMUDGE%M 7 % (0-0)
[2017-09-15] MEDS: morphine (ER) 30 MG TAB PO ×2 (10:09→20:32)
[2017-09-15] MEDS: HYDROmorphONE 1 MG/ML SYG IV ×4 (12:16→22:41)
[2017-09-15] MEDS: LORAZEPAM 2 MG INJ IV ×3 (12:16→22:42)
[2017-09-15] MEDS: LIDOCAINE 5% PATCH TD (17:13)
[2017-09-15] MEDS: NEUTRA-PHOS 250 MG PACKET PO ×2 (21:57→23:35)
[2017-09-15] MEDS: HYDROmorphONE 2 MG TAB PO (23:34)
[2017-09-16] MEDS: SOD CHLORIDE 0.9% 1,000 ML IV ×2 (00:38→10:40)
[2017-09-16] MEDS: LORAZEPAM 2 MG INJ IV ×4 (01:02→14:38)
[2017-09-16] MEDS: ACETAMINOPHEN 1000MG/100ML IV 100 ML IVPB ×3 (03:30→14:54)
[2017-09-16] MEDS: HYDROmorphONE 1 MG/ML SYG IV ×2 (03:30→14:54)
[2017-09-16] MEDS: PANTOPRAZOLE (EC) 40 MG TAB PO (06:36)
[2017-09-16] MEDS: HYDROmorphONE 2 MG TAB PO (06:37)
[2017-09-16] MEDS: morphine (ER) 30 MG TAB PO (08:16)
[2017-09-16] MEDS: DOCUSATE SODIUM 100 MG CAP PO (08:17)
[2017-09-16] MEDS: DULOXETINE 30 MG CAP DR PO (08:17)
[2017-09-16] MEDS: GABAPENTIN 300 MG CAP PO (08:17)
[2017-09-16] MEDS: CYCLOBENZAPRINE 10 MG TAB PO ×2 (08:17→12:15)
== END 2017-09-16 16:15 | disposition home health service (06) | DRG 543 ==
LOC: MS1 23:05
PROC: 0NB Head and Facial Bones, Excision (ICD-10-PCS; principal; 2017-09-03 18:00)
PROC: 02HV33Z Insertion of Infusion Device into Superior Vena Cava, Percutaneous Approach (ICD-10-PCS; 2017-09-03 18:09)
PROC: 3E04305 Introduction of Other Antineoplastic into Central Vein, Percutaneous Approach (ICD-10-PCS; 2017-09-03 18:09)
DX: C79.51 Secondary malignant neoplasm of bone (principal); M86.9 Osteomyelitis, unspecified; Z85.42 Personal history of malignant neoplasm of other parts of uterus; E66.9 Obesity, unspecified; Z68.34 Body mass index [BMI] 34.0-34.9, adult; Z90.710 Acquired absence of both cervix and uterus; Z90.79 Acquired absence of other genital organ(s); Z90.722 Acquired absence of ovaries, bilateral; Z79.899 Other long term (current) drug therapy; K02.9 Dental caries, unspecified; Z87.891 Personal history of nicotine dependence; Z80.3 Family history of malignant neoplasm of breast; Z80.0 Family history of malignant neoplasm of digestive organs; Z80.9 Family history of malignant neoplasm, unspecified; D64.9 Anemia, unspecified
CPT/HCPCS: 36569; 70491; 71010; 71260; 74177; 76830; 76856; 76937; 80048; 80053; 81003; 82565; 83735; 84100; 84520; 85025; 85610; 85730; 88309; 88331; 93306; 93970; J9209

== ENCOUNTER 2017-10-04 11:39 | Inpatient (IN) | payer OTHER ==
[2017-10-04] MEDS ORDERED: ONDANSETRON (ODT) 4 MG TAB ODT (14:30)
[2017-10-04] MEDS ORDERED: NACL 0.9% 3 ML SYG IV (14:30)
[2017-10-04] MEDS ORDERED: ACETAMINOPHEN 325 MG TAB PO (14:30)
[2017-10-04] MEDS ORDERED: ACETAMINOPHEN 650 MG SUPP PR (14:30)
[2017-10-04 14:58] LABS: ADD MAN DIFF? NO
[2017-10-04 15:00] LABS: WHITE BLOOD COUNT 5.3 10^3/ul (4.8-10.8)
[2017-10-04 15:00] LABS: ABNORMAL IP MESSAGE 1; BASOPHILS % 0.6 % (0.0-2.0); HEMATOCRIT 33.3 % (37.0-47.0); HEMOGLOBIN 10.9 g/dl (12.0-16.0); LYMPHOCYTES # 0.5 10^3/ul (0.8-2.9); LYMPHOCYTES % 9.1 % (15.0-51.0); MEAN CORPUSCULAR HEMOGLOBIN 27.9 pg (29.0-33.0); MEAN CORPUSCULAR HGB CONC 32.7 g/dl (32.0-37.0); MEAN CORPUSCULAR VOLUME 85.2 fl (82.0-101.0); MEAN PLATELET VOLUME 9.1 fl (7.4-10.4); MONOCYTE # 0.5 10^3/ul (0.3-0.9); MONOCYTES % 10.1 % (0.0-11.0); NEUTROPHIL # 4.2 10^3/ul (1.6-7.5); NEUTROPHILS % 79.4 % (39.0-77.0); PLATELET COUNT 305 10^3/UL (140-415); RED BLOOD COUNT 3.91 10^6/ul (4.20-5.40)
[2017-10-04] MEDS: FAMOTIDINE 20 MG TAB PO ×2 (15:08→21:02)
[2017-10-04] MEDS: morphine (ER) 30 MG TAB PO ×2 (15:08→20:53)
[2017-10-04] MEDS: DOCUSATE SODIUM 100 MG CAP PO ×2 (15:08→21:02)
[2017-10-04] MEDS: HYDROmorphONE 1 MG/ML SYG IV ×2 (15:09→21:03)
[2017-10-04 15:14] LABS: POSITIVE DIFF @See below
[2017-10-04 15:18] LABS: ALANINE AMINOTRANSFERASE 32 IU/L (13-69); ALBUMIN/GLOBULIN RATIO 1.21; ALKALINE PHOSPHATASE 120 IU/L (42-121); ANION GAP 14 (8-16); ASPARTATE AMINO TRANSFERASE 17 IU/L (15-46); BLOOD UREA NITROGEN 10 mg/dl (7-20); CALCIUM 9.5 mg/dl (8.4-10.2); CARBON DIOXIDE 25 mmol/L (21-31); CHLORIDE 106 mmol/L (97-110); CREATININE 0.47 mg/dl (0.44-1.00); GLUCOSE 91 mg/dl (70-220); SODIUM 141 mmol/L (135-144); TOTAL PROTEIN 7.3 g/dl (6.1-8.1)
[2017-10-04 15:37] LABS: ADD UMIC NO; UR ASCORBIC ACID NEGATIVE (NEGATIVE); UR BILIRUBIN (Dip) NEGATIVE (NEGATIVE); UR BLOOD (Dip) NEGATIVE (NEGATIVE); UR CLARITY SLIGHTLY CLOUDY (CLEAR); UR COLOR YELLOW (YELLOW); UR GLUCOSE (Dip) NEGATIVE (NEGATIVE); UR KETONES (Dip) NEGATIVE (NEGATIVE); UR LEUKOCYTE ESTERASE (Dip) NEGATIVE Leu/ul (NEGATIVE); UR MUCUS FEW /HPF (NONE SEEN); UR NITRITE (Dip) NEGATIVE (NEGATIVE); UR RBC 3 /HPF (0-5); UR SPECIFIC GRAVITY (Dip) 1.016 (1.003-1.030); UR SQUAMOUS EPITHELIAL CELL FEW /HPF (FEW); UR TOTAL PROTEIN (Dip) NEGATIVE (NEGATIVE); UR UROBILINOGEN (Dip) NEGATIVE (NEGATIVE); UR WBC 2 /HPF (0-5)
[2017-10-04] MEDS: ONDANSETRON 4 MG INJ IV (16:30)
[2017-10-04] MEDS: HYDROmorphONE 2 MG TAB PO (18:57)
[2017-10-04] MEDS: CYCLOBENZAPRINE 10 MG TAB PO (18:58)
[2017-10-04] MEDS: SOD CHLORIDE 0.9% 1,000 ML IV (21:01)
[2017-10-04] MEDS: GABAPENTIN 300 MG CAP PO (21:02)
[2017-10-05] MEDS: HYDROmorphONE 1 MG/ML SYG IV ×4 (04:45→23:49)
[2017-10-05 05:09] LABS: ADD MAN DIFF? NO
[2017-10-05 05:25] LABS: WHITE BLOOD COUNT 4.1 10^3/ul (4.8-10.8)
[2017-10-05 05:25] LABS: ABNORMAL IP MESSAGE 1; BASOPHIL # 0.1 10^3/ul (0.0-0.1); BASOPHILS % 1.5 % (0.0-2.0); HEMATOCRIT 29.8 % (37.0-47.0); HEMOGLOBIN 9.4 g/dl (12.0-16.0); LYMPHOCYTES # 0.6 10^3/ul (0.8-2.9); LYMPHOCYTES % 14.3 % (15.0-51.0); MEAN CORPUSCULAR HEMOGLOBIN 27.3 pg (29.0-33.0); MEAN CORPUSCULAR HGB CONC 31.5 g/dl (32.0-37.0); MEAN CORPUSCULAR VOLUME 86.6 fl (82.0-101.0); MEAN PLATELET VOLUME 8.9 fl (7.4-10.4); MONOCYTE # 0.8 10^3/ul (0.3-0.9); MONOCYTES % 18.5 % (0.0-11.0); NEUTROPHIL # 2.6 10^3/ul (1.6-7.5); NEUTROPHILS % 64.7 % (39.0-77.0); PLATELET COUNT 321 10^3/UL (140-415); RED BLOOD COUNT 3.44 10^6/ul (4.20-5.40)
[2017-10-05 05:33] LABS: POSITIVE DIFF @See below
[2017-10-05 05:53] LABS: ALANINE AMINOTRANSFERASE 29 IU/L (13-69); ALBUMIN 3.6 g/dl (3.3-4.9); ALBUMIN/GLOBULIN RATIO 1.02; ALKALINE PHOSPHATASE 100 IU/L (42-121); ANION GAP 13 (8-16); ASPARTATE AMINO TRANSFERASE 18 IU/L (15-46); BILIRUBIN,INDIRECT 0.1 mg/dl (0-1.1); BILIRUBIN,TOTAL 0.1 mg/dl (0.2-1.3); BLOOD UREA NITROGEN 10 mg/dl (7-20); CALCIUM 9.4 mg/dl (8.4-10.2); CARBON DIOXIDE 27 mmol/L (21-31); CHLORIDE 105 mmol/L (97-110); CREATININE 0.52 mg/dl (0.44-1.00); GLUCOSE 85 mg/dl (70-220); POTASSIUM 4.1 mmol/L (3.5-5.1); SODIUM 141 mmol/L (135-144); TOTAL PROTEIN 7.1 g/dl (6.1-8.1)
[2017-10-05] MEDS: FAMOTIDINE 20 MG TAB PO ×2 (08:59→20:52)
[2017-10-05] MEDS: DOCUSATE SODIUM 100 MG CAP PO ×2 (08:59→20:52)
[2017-10-05] MEDS: GABAPENTIN 300 MG CAP PO ×3 (08:59→20:52)
[2017-10-05] MEDS: morphine (ER) 30 MG TAB PO ×2 (09:04→20:52)
[2017-10-05] MEDS: SOD CHLORIDE 0.9% 1,000 ML IV ×2 (10:29→21:40)
[2017-10-05] MEDS ORDERED: DEXTROSE 5% IV ×2 (10:39→13:00)
[2017-10-05] MEDS ORDERED: DEXAMETHASONE IV ×2 (10:39→13:00)
[2017-10-05] MEDS ORDERED: DOXORUBICIN IV ×2 (10:39→14:30)
[2017-10-05] MEDS ORDERED: SOD CHLORIDE 0.9% IV ×5 (10:39→14:30)
[2017-10-05] MEDS ORDERED: MESNA IV ×2 (10:39)
[2017-10-05] MEDS ORDERED: ONDANSETRON IV ×2 (10:39→13:00)
[2017-10-05] MEDS ORDERED: IFOSFAMIDE IV (10:39)
[2017-10-05] MEDS ORDERED: MEPERIDINE 50 MG INJ IV (12:00)
[2017-10-05] MEDS ORDERED: SOD CHLORIDE 0.9% 1,000 ML IV (12:00)
[2017-10-05] MEDS ORDERED: DEXAMETHASONE 10 MG/ML 1 ML INJ IV (12:00)
[2017-10-05] MEDS ORDERED: METHYLPREDNISOLONE 40 MG INJ IV (12:00)
[2017-10-05] MEDS: HYDROCODONE/APAP (5/325) TAB PO ×2 (14:19→20:13)
[2017-10-05] MEDS: DIPHENHYDRAMINE 50 MG INJ IV (14:19)
[2017-10-05] MEDS: CYCLOBENZAPRINE 10 MG TAB PO ×2 (14:19→22:37)
[2017-10-05] MEDS: DEXAMETHASONE IV (14:20)
[2017-10-05] MEDS: ONDANSETRON IV (14:20)
[2017-10-05] MEDS: DEXTROSE 5% IV (14:20)
[2017-10-05] MEDS: MESNA IV ×2 (14:39→15:31)
[2017-10-05] MEDS: SOD CHLORIDE 0.9% IV ×4 (14:39→18:17)
[2017-10-05] MEDS: IFOSFAMIDE IV (14:40)
[2017-10-05] MEDS: DOXORUBICIN IV (18:17)
[2017-10-06] MEDS: HYDROCODONE/APAP (5/325) TAB PO ×3 (02:11→16:07)
[2017-10-06] MEDS: SOD CHLORIDE 0.9% 1,000 ML IV ×2 (02:12→15:33)
[2017-10-06 05:28] LABS: ADD MAN DIFF? NO
[2017-10-06 05:36] LABS: ABNORMAL IP MESSAGE 1; BASOPHILS % 0.3 % (0.0-2.0); HEMATOCRIT 34.7 % (37.0-47.0); HEMOGLOBIN 11.2 g/dl (12.0-16.0); LYMPHOCYTES # 0.4 10^3/ul (0.8-2.9); LYMPHOCYTES % 11.7 % (15.0-51.0); MEAN CORPUSCULAR HEMOGLOBIN 27.5 pg (29.0-33.0); MEAN CORPUSCULAR HGB CONC 32.3 g/dl (32.0-37.0); MEAN PLATELET VOLUME 9.3 fl (7.4-10.4); MONOCYTE # 0.1 10^3/ul (0.3-0.9); MONOCYTES % 2.7 % (0.0-11.0); NEUTROPHIL # 2.5 10^3/ul (1.6-7.5); NEUTROPHILS % 84.6 % (39.0-77.0); PLATELET COUNT 286 10^3/UL (140-415); RED BLOOD COUNT 4.08 10^6/ul (4.20-5.40); RED CELL DISTRIBUTION WIDTH 14.9 % (11.5-14.5)
[2017-10-06 05:39] LABS: POSITIVE DIFF @See below
[2017-10-06] MEDS: HYDROmorphONE 1 MG/ML SYG IV ×3 (06:07→18:16)
[2017-10-06 06:13] LABS: ALANINE AMINOTRANSFERASE 31 IU/L (13-69); ALBUMIN 3.9 g/dl (3.3-4.9); ALBUMIN/GLOBULIN RATIO 1.11; ALKALINE PHOSPHATASE 110 IU/L (42-121); ANION GAP 14 (8-16); ASPARTATE AMINO TRANSFERASE 18 IU/L (15-46); BLOOD UREA NITROGEN 8 mg/dl (7-20); CALCIUM 9.3 mg/dl (8.4-10.2); CARBON DIOXIDE 24 mmol/L (21-31); CHLORIDE 107 mmol/L (97-110); CREATININE 0.44 mg/dl (0.44-1.00); GLUCOSE 144 mg/dl (70-220); POTASSIUM 4.2 mmol/L (3.5-5.1); SODIUM 141 mmol/L (135-144); TOTAL PROTEIN 7.4 g/dl (6.1-8.1)
[2017-10-06] MEDS: GABAPENTIN 300 MG CAP PO ×3 (08:00→20:13)
[2017-10-06] MEDS: FAMOTIDINE 20 MG TAB PO ×2 (08:00→20:14)
[2017-10-06] MEDS: DOCUSATE SODIUM 100 MG CAP PO ×2 (08:00→20:14)
[2017-10-06] MEDS: morphine (ER) 30 MG TAB PO ×2 (08:00→20:14)
[2017-10-06] MEDS: CYCLOBENZAPRINE 10 MG TAB PO ×2 (08:01→16:07)
[2017-10-06 09:53] LABS: ADD UMIC NO; UR ASCORBIC ACID 40 mg/dL (NEGATIVE); UR BILIRUBIN (Dip) NEGATIVE (NEGATIVE); UR BLOOD (Dip) NEGATIVE (NEGATIVE); UR CLARITY CLEAR (CLEAR); UR COLOR YELLOW (YELLOW); UR GLUCOSE (Dip) NEGATIVE (NEGATIVE); UR KETONES (Dip) 1+ mg/dL (NEGATIVE); UR LEUKOCYTE ESTERASE (Dip) NEGATIVE Leu/ul (NEGATIVE); UR NITRITE (Dip) NEGATIVE (NEGATIVE); UR SPECIFIC GRAVITY (Dip) 1.014 (1.003-1.030); UR TOTAL PROTEIN (Dip) NEGATIVE (NEGATIVE); UR UROBILINOGEN (Dip) NEGATIVE (NEGATIVE)
[2017-10-06] MEDS ORDERED: DOXORUBICIN IV (14:30)
[2017-10-06] MEDS ORDERED: SOD CHLORIDE 0.9% IV (14:30)
[2017-10-06] MEDS: MESNA IV (15:32)
[2017-10-06] MEDS: SOD CHLORIDE 0.9% IV ×2 (15:32→22:30)
[2017-10-06] MEDS: HYDROmorphONE 2 MG TAB PO (15:39)
[2017-10-06] MEDS: DIPHENHYDRAMINE 50 MG INJ IV (21:18)
[2017-10-06] MEDS: ONDANSETRON IV (21:54)
[2017-10-06] MEDS: DEXTROSE 5% IV (21:54)
[2017-10-06] MEDS: LORAZEPAM 1 MG TAB PO (21:54)
[2017-10-06] MEDS: DEXAMETHASONE IV (21:54)
[2017-10-06] MEDS: IFOSFAMIDE IV (22:30)
[2017-10-07] MEDS: HYDROmorphONE 1 MG/ML SYG IV ×4 (01:06→21:51)
[2017-10-07] MEDS: CYCLOBENZAPRINE 10 MG TAB PO ×3 (01:15→20:18)
[2017-10-07] MEDS: SOD CHLORIDE 0.9% IV ×2 (02:02→15:34)
[2017-10-07] MEDS: DOXORUBICIN IV (02:02)
[2017-10-07] MEDS: HYDROmorphONE 2 MG TAB PO (04:42)
[2017-10-07 05:07] LABS: ADD MAN DIFF? NO
[2017-10-07 05:12] LABS: ABNORMAL IP MESSAGE 1; HEMATOCRIT 32.2 % (37.0-47.0); HEMOGLOBIN 10.3 g/dl (12.0-16.0); LYMPHOCYTES # 0.3 10^3/ul (0.8-2.9); LYMPHOCYTES % 5.2 % (15.0-51.0); MEAN CORPUSCULAR HEMOGLOBIN 27.5 pg (29.0-33.0); MEAN CORPUSCULAR VOLUME 85.9 fl (82.0-101.0); MEAN PLATELET VOLUME 9.5 fl (7.4-10.4); MONOCYTE # 0.1 10^3/ul (0.3-0.9); MONOCYTES % 2.2 % (0.0-11.0); NEUTROPHIL # 4.6 10^3/ul (1.6-7.5); NEUTROPHILS % 92.2 % (39.0-77.0); PLATELET COUNT 248 10^3/UL (140-415); RED BLOOD COUNT 3.75 10^6/ul (4.20-5.40); RED CELL DISTRIBUTION WIDTH 15.3 % (11.5-14.5)
[2017-10-07 05:33] LABS: POSITIVE DIFF @See below
[2017-10-07] MEDS: SOD CHLORIDE 0.9% 1,000 ML IV ×3 (05:40→23:53)
[2017-10-07 05:43] LABS: ALANINE AMINOTRANSFERASE 25 IU/L (13-69); ALBUMIN 3.6 g/dl (3.3-4.9); ALBUMIN/GLOBULIN RATIO 1.05; ALKALINE PHOSPHATASE 93 IU/L (42-121); ANION GAP 14 (8-16); ASPARTATE AMINO TRANSFERASE 14 IU/L (15-46); BLOOD UREA NITROGEN 8 mg/dl (7-20); CALCIUM 9.4 mg/dl (8.4-10.2); CARBON DIOXIDE 22 mmol/L (21-31); CHLORIDE 109 mmol/L (97-110); CREATININE 0.43 mg/dl (0.44-1.00); GLUCOSE 125 mg/dl (70-220); POTASSIUM 4.2 mmol/L (3.5-5.1); SODIUM 141 mmol/L (135-144)
[2017-10-07] MEDS: DOCUSATE SODIUM 100 MG CAP PO ×2 (09:17→20:18)
[2017-10-07] MEDS: morphine (ER) 30 MG TAB PO ×2 (09:18→20:18)
[2017-10-07] MEDS: FAMOTIDINE 20 MG TAB PO ×2 (09:19→20:18)
[2017-10-07] MEDS: GABAPENTIN 300 MG CAP PO ×3 (09:19→20:18)
[2017-10-07] MEDS: ONDANSETRON 4 MG INJ IV ×2 (09:33→15:40)
[2017-10-07 10:36] LABS: ADD UMIC NO; UR ASCORBIC ACID 20 mg/dL (NEGATIVE); UR BILIRUBIN (Dip) NEGATIVE (NEGATIVE); UR BLOOD (Dip) NEGATIVE (NEGATIVE); UR CLARITY CLEAR (CLEAR); UR COLOR YELLOW (YELLOW); UR GLUCOSE (Dip) 1+ mg/dL (NEGATIVE); UR KETONES (Dip) 1+ mg/dL (NEGATIVE); UR LEUKOCYTE ESTERASE (Dip) NEGATIVE Leu/ul (NEGATIVE); UR NITRITE (Dip) NEGATIVE (NEGATIVE); UR SPECIFIC GRAVITY (Dip) 1.013 (1.003-1.030); UR TOTAL PROTEIN (Dip) NEGATIVE (NEGATIVE); UR UROBILINOGEN (Dip) NEGATIVE (NEGATIVE)
[2017-10-07] MEDS: SOD CHLORIDE 0.9% 500 ML IV (13:49)
[2017-10-07 14:27] LABS: TROPONIN-I < 0.012 ng/ml (0.00-0.12)
[2017-10-07] MEDS: MESNA IV (15:34)
[2017-10-07] MEDS: ZOLPIDEM 5 MG TAB PO (23:30)
[2017-10-08] MEDS: SOD CHLORIDE 0.9% 1,000 ML IV ×2 (03:00→15:39)
[2017-10-08] MEDS: DEXAMETHASONE IV (05:50)
[2017-10-08] MEDS: ONDANSETRON IV (05:50)
[2017-10-08] MEDS: DEXTROSE 5% IV (05:50)
[2017-10-08] MEDS: DIPHENHYDRAMINE 50 MG INJ IV (05:50)
[2017-10-08] MEDS: SOD CHLORIDE 0.9% IV ×3 (06:33→15:40)
[2017-10-08] MEDS: IFOSFAMIDE IV (06:33)
[2017-10-08] MEDS: HYDROmorphONE 1 MG/ML SYG IV ×3 (06:33→19:03)
[2017-10-08 09:07] LABS: ADD MAN DIFF? NO
[2017-10-08 09:16] LABS: WHITE BLOOD COUNT 3.2 10^3/ul (4.8-10.8)
[2017-10-08 09:16] LABS: ABNORMAL IP MESSAGE 1; HEMATOCRIT 30.3 % (37.0-47.0); HEMOGLOBIN 9.8 g/dl (12.0-16.0); LYMPHOCYTES # 0.2 10^3/ul (0.8-2.9); LYMPHOCYTES % 5.9 % (15.0-51.0); MEAN CORPUSCULAR HEMOGLOBIN 27.5 pg (29.0-33.0); MEAN CORPUSCULAR HGB CONC 32.3 g/dl (32.0-37.0); MEAN CORPUSCULAR VOLUME 85.1 fl (82.0-101.0); MEAN PLATELET VOLUME 9.6 fl (7.4-10.4); MONOCYTE # 0.2 10^3/ul (0.3-0.9); MONOCYTES % 7.5 % (0.0-11.0); NEUTROPHIL # 2.8 10^3/ul (1.6-7.5); NEUTROPHILS % 86.3 % (39.0-77.0); PLATELET COUNT 225 10^3/UL (140-415); RED BLOOD COUNT 3.56 10^6/ul (4.20-5.40); RED CELL DISTRIBUTION WIDTH 16.1 % (11.5-14.5)
[2017-10-08 09:18] LABS: POSITIVE DIFF @See below
[2017-10-08] MEDS: morphine (ER) 30 MG TAB PO ×2 (09:23→20:56)
[2017-10-08] MEDS: DOCUSATE SODIUM 100 MG CAP PO ×2 (09:24→20:06)
[2017-10-08] MEDS: FAMOTIDINE 20 MG TAB PO ×2 (09:24→20:07)
[2017-10-08] MEDS: GABAPENTIN 300 MG CAP PO ×3 (09:24→20:06)
[2017-10-08 09:39] LABS: ALANINE AMINOTRANSFERASE 33 IU/L (13-69); ALBUMIN 3.2 g/dl (3.3-4.9); ALBUMIN/GLOBULIN RATIO 1.14; ALKALINE PHOSPHATASE 83 IU/L (42-121); ANION GAP 11 (8-16); ASPARTATE AMINO TRANSFERASE 18 IU/L (15-46); BILIRUBIN,INDIRECT 0.2 mg/dl (0-1.1); BILIRUBIN,TOTAL 0.2 mg/dl (0.2-1.3); BLOOD UREA NITROGEN 8 mg/dl (7-20); CALCIUM 8.6 mg/dl (8.4-10.2); CARBON DIOXIDE 25 mmol/L (21-31); CHLORIDE 107 mmol/L (97-110); CREATININE 0.43 mg/dl (0.44-1.00); GLUCOSE 84 mg/dl (70-220); POTASSIUM 3.4 mmol/L (3.5-5.1); SODIUM 140 mmol/L (135-144)
[2017-10-08] MEDS: DOXORUBICIN IV (09:43)
[2017-10-08] MEDS: HYDROCODONE/APAP (5/325) TAB PO ×3 (10:19→18:34)
[2017-10-08] MEDS: CYCLOBENZAPRINE 10 MG TAB PO ×2 (10:19→18:34)
[2017-10-08 10:28] LABS: ADD UMIC NO; UR ASCORBIC ACID NEGATIVE (NEGATIVE); UR BACTERIA FEW /HPF (NONE SEEN); UR BILIRUBIN (Dip) NEGATIVE (NEGATIVE); UR BLOOD (Dip) NEGATIVE (NEGATIVE); UR CLARITY SLIGHTLY CLOUDY (CLEAR); UR COLOR YELLOW (YELLOW); UR GLUCOSE (Dip) 1+ mg/dL (NEGATIVE); UR KETONES (Dip) 1+ mg/dL (NEGATIVE); UR LEUKOCYTE ESTERASE (Dip) NEGATIVE Leu/ul (NEGATIVE); UR NITRITE (Dip) NEGATIVE (NEGATIVE); UR RBC 3 /HPF (0-5); UR SPECIFIC GRAVITY (Dip) 1.009 (1.003-1.030); UR SQUAMOUS EPITHELIAL CELL MODERATE /HPF (FEW); UR TOTAL PROTEIN (Dip) NEGATIVE (NEGATIVE); UR UROBILINOGEN (Dip) NEGATIVE (NEGATIVE); UR WBC 2 /HPF (0-5)
[2017-10-08] MEDS: MESNA IV (15:40)
[2017-10-08] MEDS: POTASSIUM CHLORIDE (SR) 20 MEQ TAB PO (16:03)
[2017-10-08] MEDS: ENOXAPARIN 40 MG/0.4 ML SYG SC (16:49)
[2017-10-08] MEDS: ZOLPIDEM 5 MG TAB PO (20:06)
[2017-10-09] MEDS: HYDROmorphONE 1 MG/ML SYG IV ×3 (01:27→15:11)
[2017-10-09 05:29] LABS: ADD MAN DIFF? NO
[2017-10-09] MEDS: SOD CHLORIDE 0.9% 1,000 ML IV ×3 (05:33→22:16)
[2017-10-09 05:38] LABS: WHITE BLOOD COUNT 2.9 10^3/ul (4.8-10.8)
[2017-10-09 05:38] LABS: ABNORMAL IP MESSAGE 1; HEMATOCRIT 32.3 % (37.0-47.0); HEMOGLOBIN 10.6 g/dl (12.0-16.0); LYMPHOCYTES # 0.4 10^3/ul (0.8-2.9); LYMPHOCYTES % 12.6 % (15.0-51.0); MEAN CORPUSCULAR HEMOGLOBIN 27.7 pg (29.0-33.0); MEAN CORPUSCULAR HGB CONC 32.8 g/dl (32.0-37.0); MEAN CORPUSCULAR VOLUME 84.6 fl (82.0-101.0); MEAN PLATELET VOLUME 9.7 fl (7.4-10.4); MONOCYTE # 0.3 10^3/ul (0.3-0.9); MONOCYTES % 11.2 % (0.0-11.0); NEUTROPHIL # 2.2 10^3/ul (1.6-7.5); NEUTROPHILS % 75.9 % (39.0-77.0); PLATELET COUNT 257 10^3/UL (140-415); RED BLOOD COUNT 3.82 10^6/ul (4.20-5.40); RED CELL DISTRIBUTION WIDTH 15.8 % (11.5-14.5)
[2017-10-09 05:55] LABS: ALANINE AMINOTRANSFERASE 31 IU/L (13-69); ALBUMIN 3.7 g/dl (3.3-4.9); ALBUMIN/GLOBULIN RATIO 1.27; ALKALINE PHOSPHATASE 92 IU/L (42-121); ANION GAP 14 (8-16); ASPARTATE AMINO TRANSFERASE 14 IU/L (15-46); BILIRUBIN,INDIRECT 0.3 mg/dl (0-1.1); BILIRUBIN,TOTAL 0.3 mg/dl (0.2-1.3); BLOOD UREA NITROGEN 7 mg/dl (7-20); CALCIUM 9.1 mg/dl (8.4-10.2); CARBON DIOXIDE 23 mmol/L (21-31); CHLORIDE 107 mmol/L (97-110); CREATININE 0.41 mg/dl (0.44-1.00); GLUCOSE 80 mg/dl (70-220); POTASSIUM 3.6 mmol/L (3.5-5.1); SODIUM 140 mmol/L (135-144); TOTAL PROTEIN 6.6 g/dl (6.1-8.1)
[2017-10-09 06:31] LABS: POSITIVE DIFF @See below
[2017-10-09 06:37] LABS: ADD UMIC NO; UR ASCORBIC ACID NEGATIVE (NEGATIVE); UR BILIRUBIN (Dip) NEGATIVE (NEGATIVE); UR BLOOD (Dip) NEGATIVE (NEGATIVE); UR CLARITY CLEAR (CLEAR); UR COLOR STRAW (YELLOW); UR GLUCOSE (Dip) 1+ mg/dL (NEGATIVE); UR KETONES (Dip) 1+ mg/dL (NEGATIVE); UR LEUKOCYTE ESTERASE (Dip) NEGATIVE Leu/ul (NEGATIVE); UR NITRITE (Dip) NEGATIVE (NEGATIVE); UR SPECIFIC GRAVITY (Dip) 1.006 (1.003-1.030); UR TOTAL PROTEIN (Dip) NEGATIVE (NEGATIVE); UR UROBILINOGEN (Dip) NEGATIVE (NEGATIVE)
[2017-10-09] MEDS: FAMOTIDINE 20 MG TAB PO ×2 (08:55→20:42)
[2017-10-09] MEDS: GABAPENTIN 300 MG CAP PO ×3 (08:55→20:42)
[2017-10-09] MEDS: DOCUSATE SODIUM 100 MG CAP PO ×2 (08:55→20:41)
[2017-10-09] MEDS: morphine (ER) 30 MG TAB PO ×2 (08:55→20:42)
[2017-10-09] MEDS: ENOXAPARIN 40 MG/0.4 ML SYG SC (09:13)
[2017-10-09] MEDS: ONDANSETRON IV (10:28)
[2017-10-09] MEDS: DEXAMETHASONE IV (10:28)
[2017-10-09] MEDS: DEXTROSE 5% IV (10:28)
[2017-10-09] MEDS: DIPHENHYDRAMINE 50 MG INJ IV (10:28)
[2017-10-09 10:45] LABS: PHOSPHORUS 2.6 mg/dl (2.5-4.9)
[2017-10-09] MEDS: CYCLOBENZAPRINE 10 MG TAB PO (10:46)
[2017-10-09] MEDS: IFOSFAMIDE IV (11:32)
[2017-10-09] MEDS: SOD CHLORIDE 0.9% IV ×2 (11:32→14:56)
[2017-10-09] MEDS: HYDROCODONE/APAP (5/325) TAB PO (13:08)
[2017-10-09] MEDS: MESNA IV (14:56)
[2017-10-09] MEDS: LORAZEPAM 1 MG TAB PO (16:21)
[2017-10-09] MEDS: ZOLPIDEM 5 MG TAB PO (20:45)
[2017-10-09] MEDS: HYDROmorphONE 2 MG TAB PO (22:11)
[2017-10-10] MEDS: HYDROCODONE/APAP (5/325) TAB PO ×2 (07:01→15:08)
[2017-10-10] MEDS: CYCLOBENZAPRINE 10 MG TAB PO ×2 (07:01→15:08)
[2017-10-10] MEDS: FAMOTIDINE 20 MG TAB PO (08:57)
[2017-10-10] MEDS: DOCUSATE SODIUM 100 MG CAP PO (08:57)
[2017-10-10] MEDS: GABAPENTIN 300 MG CAP PO ×2 (08:57→12:05)
[2017-10-10] MEDS: BISACODYL 10 MG SUPP PR (08:58)
[2017-10-10] MEDS: HYDROmorphONE 1 MG/ML SYG IV ×2 (08:58→15:26)
[2017-10-10] MEDS: morphine (ER) 30 MG TAB PO (08:58)
[2017-10-10 09:41] LABS: ADD UMIC NO; UR ASCORBIC ACID 20 mg/dL (NEGATIVE); UR BILIRUBIN (Dip) NEGATIVE (NEGATIVE); UR BLOOD (Dip) NEGATIVE (NEGATIVE); UR CLARITY CLEAR (CLEAR); UR COLOR STRAW (YELLOW); UR GLUCOSE (Dip) NEGATIVE (NEGATIVE); UR KETONES (Dip) 1+ mg/dL (NEGATIVE); UR LEUKOCYTE ESTERASE (Dip) NEGATIVE Leu/ul (NEGATIVE); UR NITRITE (Dip) NEGATIVE (NEGATIVE); UR TOTAL PROTEIN (Dip) NEGATIVE (NEGATIVE); UR UROBILINOGEN (Dip) NEGATIVE (NEGATIVE)
[2017-10-10 10:08] LABS: ADD MAN DIFF? NO
[2017-10-10 10:10] LABS: WHITE BLOOD COUNT 3.9 10^3/ul (4.8-10.8)
[2017-10-10 10:10] LABS: ABNORMAL IP MESSAGE 1; HEMATOCRIT 33.9 % (37.0-47.0); HEMOGLOBIN 11.2 g/dl (12.0-16.0); LYMPHOCYTES # 0.3 10^3/ul (0.8-2.9); LYMPHOCYTES % 7.6 % (15.0-51.0); MEAN CORPUSCULAR HEMOGLOBIN 27.9 pg (29.0-33.0); MEAN CORPUSCULAR VOLUME 84.5 fl (82.0-101.0); MEAN PLATELET VOLUME 9.2 fl (7.4-10.4); MONOCYTE # 0.1 10^3/ul (0.3-0.9); MONOCYTES % 2.3 % (0.0-11.0); NEUTROPHIL # 3.5 10^3/ul (1.6-7.5); NEUTROPHILS % 89.6 % (39.0-77.0); PLATELET COUNT 272 10^3/UL (140-415); RED BLOOD COUNT 4.01 10^6/ul (4.20-5.40); RED CELL DISTRIBUTION WIDTH 15.8 % (11.5-14.5)
[2017-10-10 10:20] LABS: POSITIVE DIFF @See below
[2017-10-10] MEDS: ONDANSETRON IV (10:25)
[2017-10-10] MEDS: DEXTROSE 5% IV (10:25)
[2017-10-10] MEDS: DEXAMETHASONE IV (10:25)
[2017-10-10] MEDS: SOD CHLORIDE 0.9% 1,000 ML IV (10:26)
[2017-10-10 10:30] LABS: ALANINE AMINOTRANSFERASE 29 IU/L (13-69); ALBUMIN 3.8 g/dl (3.3-4.9); ALBUMIN/GLOBULIN RATIO 1.26; ALKALINE PHOSPHATASE 97 IU/L (42-121); ANION GAP 12 (8-16); ASPARTATE AMINO TRANSFERASE 13 IU/L (15-46); BILIRUBIN,INDIRECT 0.3 mg/dl (0-1.1); BILIRUBIN,TOTAL 0.3 mg/dl (0.2-1.3); BLOOD UREA NITROGEN 13 mg/dl (7-20); CARBON DIOXIDE 24 mmol/L (21-31); CHLORIDE 105 mmol/L (97-110); CREATININE 0.48 mg/dl (0.44-1.00); GLUCOSE 92 mg/dl (70-220); POTASSIUM 3.6 mmol/L (3.5-5.1); SODIUM 137 mmol/L (135-144); TOTAL PROTEIN 6.8 g/dl (6.1-8.1)
[2017-10-10] MEDS: IFOSFAMIDE IV (11:02)
[2017-10-10] MEDS: SOD CHLORIDE 0.9% IV (11:02)
[2017-10-10] MEDS: ENOXAPARIN 40 MG/0.4 ML SYG SC (11:03)
[2017-10-10] MEDS: LORAZEPAM 1 MG TAB PO (12:06)
== END 2017-10-10 17:21 | disposition home health service (06) | DRG 847 ==
LOC: MS1 11:39
PROC: 3E04305 Introduction of Other Antineoplastic into Central Vein, Percutaneous Approach (ICD-10-PCS; principal; 2017-10-04)
DX: Z51.11 Encounter for antineoplastic chemotherapy (principal); C79.51 Secondary malignant neoplasm of bone; C55 Malignant neoplasm of uterus, part unspecified; R00.1 Bradycardia, unspecified; F32.9 Major depressive disorder, single episode, unspecified; D72.819 Decreased white blood cell count, unspecified; D50.9 Iron deficiency anemia, unspecified; Z90.710 Acquired absence of both cervix and uterus; Z90.79 Acquired absence of other genital organ(s); Z90.722 Acquired absence of ovaries, bilateral; R07.9 Chest pain, unspecified
CPT/HCPCS: 80053; 81001; 81003; 83735; 84100; 84484; 85025; 93005; 93308; J9209

== ENCOUNTER 2017-12-14 12:17 | Inpatient (IN) | payer OTHER ==
[2017-12-14] MEDS ORDERED: BISACODYL (EC) 5 MG TAB PO (14:30)
[2017-12-14] MEDS ORDERED: ACETAMINOPHEN 325 MG TAB PO (14:30)
[2017-12-14] MEDS ORDERED: NA PHOSPHATE/BIPHOS 133 ML ENEMA PR (14:30)
[2017-12-14] MEDS ORDERED: DOCUSATE SODIUM 100 MG CAP PO (14:30)
[2017-12-14] MEDS ORDERED: NACL 0.9% 3 ML SYG IV ×2 (14:30)
[2017-12-14] MEDS: LORAZEPAM 2 MG INJ IV (17:14)
[2017-12-14] MEDS: OXYCODONE/ACETAMINOPHEN (5/325) TAB PO (19:01)
[2017-12-14] MEDS ORDERED: DIPHENHYDRAMINE 50 MG INJ IV (19:30)
[2017-12-14] MEDS ORDERED: METHYLPREDNISOLONE 125 MG INJ IV (19:30)
[2017-12-14] MEDS: SOD CHLORIDE 0.9% 1,000 ML IV (20:15)
[2017-12-14] MEDS: HYDROmorphONE 0.5 MG/0.5 ML SYG IV (20:18)
[2017-12-14] MEDS: morphine (ER) 30 MG TAB PO (21:35)
[2017-12-14] MEDS: GABAPENTIN 300 MG CAP PO (21:35)
[2017-12-14] MEDS: DIPHENHYDRAMINE 50 MG INJ IV (21:54)
[2017-12-14] MEDS: ONDANSETRON INJ 16 MG, DEXAMETHASONE 10 MG/ML 10 MG in SOD CHLORIDE 0.9% 50 ML IVPB (21:54)
[2017-12-14] MEDS: SOD CHLORIDE 0.9% IV ×3 (22:30→23:12)
[2017-12-14] MEDS: DOXORUBICIN IV (22:30)
[2017-12-14] MEDS: MESNA IV (23:11)
[2017-12-14] MEDS: IFOSFAMIDE IV (23:12)
[2017-12-15] MEDS: SOD CHLORIDE 0.9% IV ×3 (00:21→23:08)
[2017-12-15] MEDS: MESNA IV (00:21)
[2017-12-15] MEDS: HYDROmorphONE 0.5 MG/0.5 ML SYG IV ×5 (04:11→21:59)
[2017-12-15] MEDS: SOD CHLORIDE 0.9% 1,000 ML IV ×3 (04:40→18:55)
[2017-12-15] MEDS: PANTOPRAZOLE 40 MG INJ IV (05:08)
[2017-12-15 05:55] LABS: ADD MAN DIFF? NO
[2017-12-15 05:59] LABS: WHITE BLOOD COUNT 3.2 10^3/ul (4.8-10.8)
[2017-12-15 05:59] LABS: ABNORMAL IP MESSAGE 1; HEMATOCRIT 34.9 % (37.0-47.0); HEMOGLOBIN 10.3 g/dl (12.0-16.0); LYMPHOCYTES # 0.3 10^3/ul (0.8-2.9); MEAN CORPUSCULAR HEMOGLOBIN 25.7 pg (29.0-33.0); MEAN CORPUSCULAR HGB CONC 29.5 g/dl (32.0-37.0); MEAN PLATELET VOLUME 9.5 fl (7.4-10.4); MONOCYTES % 0.9 % (0.0-11.0); NEUTROPHIL # 2.9 10^3/ul (1.6-7.5); NEUTROPHILS % 89.8 % (39.0-77.0); PLATELET COUNT 180 10^3/UL (140-415); RED BLOOD COUNT 4.01 10^6/ul (4.20-5.40); RED CELL DISTRIBUTION WIDTH 15.7 % (11.5-14.5)
[2017-12-15 06:21] LABS: ALANINE AMINOTRANSFERASE 21 IU/L (13-69); ALBUMIN 4.3 g/dl (3.3-4.9); ALBUMIN/GLOBULIN RATIO 1.13; ALKALINE PHOSPHATASE 112 IU/L (42-121); ANION GAP 15 (8-16); ASPARTATE AMINO TRANSFERASE 16 IU/L (15-46); BLOOD UREA NITROGEN 5 mg/dl (7-20); CALCIUM 9.3 mg/dl (8.4-10.2); CARBON DIOXIDE 24 mmol/L (21-31); CHLORIDE 109 mmol/L (97-110); CREATININE 0.47 mg/dl (0.44-1.00); GLUCOSE 123 mg/dl (70-220); POTASSIUM 4.2 mmol/L (3.5-5.1); SODIUM 144 mmol/L (135-144); TOTAL PROTEIN 8.1 g/dl (6.1-8.1)
[2017-12-15 06:22] LABS: POSITIVE DIFF @See below
[2017-12-15 06:30] LABS: ANION GAP 16 (8-16); BLOOD UREA NITROGEN 6 mg/dl (7-20); CALCIUM 9.2 mg/dl (8.4-10.2); CARBON DIOXIDE 24 mmol/L (21-31); CHLORIDE 109 mmol/L (97-110); CREATININE 0.45 mg/dl (0.44-1.00); GLUCOSE 119 mg/dl (70-220); MAGNESIUM 1.7 mg/dl (1.7-2.5); PHOSPHORUS 4.4 mg/dl (2.5-4.9); POTASSIUM 4.4 mmol/L (3.5-5.1); SODIUM 145 mmol/L (135-144)
[2017-12-15] MEDS: GABAPENTIN 300 MG CAP PO ×3 (09:22→20:33)
[2017-12-15] MEDS: morphine (ER) 30 MG TAB PO ×2 (09:23→20:33)
[2017-12-15] MEDS: ONDANSETRON 4 MG INJ IV (13:34)
[2017-12-15 14:40] LABS: ADD UMIC NO; UR ASCORBIC ACID 40 mg/dL (NEGATIVE); UR BILIRUBIN (Dip) NEGATIVE (NEGATIVE); UR BLOOD (Dip) NEGATIVE (NEGATIVE); UR CLARITY CLEAR (CLEAR); UR COLOR YELLOW (YELLOW); UR GLUCOSE (Dip) 1+ mg/dL (NEGATIVE); UR KETONES (Dip) 2+ mg/dL (NEGATIVE); UR LEUKOCYTE ESTERASE (Dip) NEGATIVE Leu/ul (NEGATIVE); UR NITRITE (Dip) NEGATIVE (NEGATIVE); UR TOTAL PROTEIN (Dip) NEGATIVE (NEGATIVE); UR UROBILINOGEN (Dip) NEGATIVE (NEGATIVE)
[2017-12-15] MEDS: CYCLOBENZAPRINE 10 MG TAB PO (15:16)
[2017-12-15] MEDS: DIPHENHYDRAMINE 50 MG INJ IV (21:11)
[2017-12-15] MEDS: ONDANSETRON INJ 16 MG, DEXAMETHASONE 10 MG/ML 10 MG in SOD CHLORIDE 0.9% 50 ML IVPB (21:12)
[2017-12-15] MEDS: DOXORUBICIN IV (22:15)
[2017-12-15] MEDS: IFOSFAMIDE IV (23:08)
[2017-12-16] MEDS: OXYCODONE/ACETAMINOPHEN (5/325) TAB PO ×2 (00:31→09:21)
[2017-12-16] MEDS: ZOLPIDEM 5 MG TAB PO ×2 (00:54→22:41)
[2017-12-16] MEDS: SOD CHLORIDE 0.9% IV ×3 (00:55→23:29)
[2017-12-16] MEDS: MESNA IV (00:55)
[2017-12-16] MEDS: HYDROmorphONE 0.5 MG/0.5 ML SYG IV ×5 (02:38→20:04)
[2017-12-16 05:11] LABS: ADD MAN DIFF? NO
[2017-12-16 05:14] LABS: ABNORMAL IP MESSAGE 1; HEMATOCRIT 30.3 % (37.0-47.0); LYMPHOCYTES # 0.3 10^3/ul (0.8-2.9); LYMPHOCYTES % 9.3 % (15.0-51.0); MEAN CORPUSCULAR HEMOGLOBIN 26.4 pg (29.0-33.0); MEAN CORPUSCULAR HGB CONC 29.7 g/dl (32.0-37.0); MEAN CORPUSCULAR VOLUME 88.9 fl (82.0-101.0); MEAN PLATELET VOLUME 9.8 fl (7.4-10.4); MONOCYTE # 0.1 10^3/ul (0.3-0.9); NEUTROPHIL # 3.2 10^3/ul (1.6-7.5); NEUTROPHILS % 87.4 % (39.0-77.0); PLATELET COUNT 150 10^3/UL (140-415); RED BLOOD COUNT 3.41 10^6/ul (4.20-5.40)
[2017-12-16 05:14] LABS: WHITE BLOOD COUNT 3.7 10^3/ul (4.8-10.8)
[2017-12-16 05:40] LABS: ALANINE AMINOTRANSFERASE 18 IU/L (13-69); ALBUMIN 3.5 g/dl (3.3-4.9); ALKALINE PHOSPHATASE 91 IU/L (42-121); ANION GAP 14 (8-16); ASPARTATE AMINO TRANSFERASE 10 IU/L (15-46); BLOOD UREA NITROGEN 8 mg/dl (7-20); CALCIUM 8.9 mg/dl (8.4-10.2); CARBON DIOXIDE 25 mmol/L (21-31); CHLORIDE 110 mmol/L (97-110); CREATININE 0.48 mg/dl (0.44-1.00); GLUCOSE 134 mg/dl (70-220); POTASSIUM 4.2 mmol/L (3.5-5.1); SODIUM 145 mmol/L (135-144)
[2017-12-16 05:41] LABS: POSITIVE DIFF @See below
[2017-12-16 06:00] LABS: ANION GAP 16 (8-16); BLOOD UREA NITROGEN 8 mg/dl (7-20); CARBON DIOXIDE 23 mmol/L (21-31); CHLORIDE 110 mmol/L (97-110); CREATININE 0.48 mg/dl (0.44-1.00); GLUCOSE 130 mg/dl (70-220); POTASSIUM 4.4 mmol/L (3.5-5.1); SODIUM 145 mmol/L (135-144)
[2017-12-16 06:03] LABS: MAGNESIUM 1.8 mg/dl (1.7-2.5)
[2017-12-16 06:03] LABS: PHOSPHORUS 3.4 mg/dl (2.5-4.9)
[2017-12-16] MEDS: PANTOPRAZOLE 40 MG INJ IV (06:28)
[2017-12-16] MEDS: GABAPENTIN 300 MG CAP PO ×3 (09:21→20:20)
[2017-12-16] MEDS: ONDANSETRON 4 MG INJ IV (09:21)
[2017-12-16] MEDS: SOD CHLORIDE 0.9% 1,000 ML IV ×3 (09:22→21:30)
[2017-12-16] MEDS: morphine (ER) 30 MG TAB PO ×2 (09:22→20:08)
[2017-12-16] MEDS: ENOXAPARIN 40 MG/0.4 ML SYG SC (09:23)
[2017-12-16] MEDS: METOCLOPRAMIDE 10 MG INJ IV ×2 (12:00→17:56)
[2017-12-16] MEDS: BISACODYL 10 MG SUPP PR (13:09)
[2017-12-16 16:30] LABS: ADD UMIC NO; UR ASCORBIC ACID 40 mg/dL (NEGATIVE); UR BILIRUBIN (Dip) NEGATIVE (NEGATIVE); UR BLOOD (Dip) NEGATIVE (NEGATIVE); UR CLARITY CLEAR (CLEAR); UR COLOR YELLOW (YELLOW); UR GLUCOSE (Dip) NEGATIVE (NEGATIVE); UR KETONES (Dip) 2+ mg/dL (NEGATIVE); UR LEUKOCYTE ESTERASE (Dip) NEGATIVE Leu/ul (NEGATIVE); UR NITRITE (Dip) NEGATIVE (NEGATIVE); UR SPECIFIC GRAVITY (Dip) 1.019 (1.003-1.030); UR TOTAL PROTEIN (Dip) NEGATIVE (NEGATIVE); UR UROBILINOGEN (Dip) NEGATIVE (NEGATIVE)
[2017-12-16] MEDS: ONDANSETRON INJ 16 MG, DEXAMETHASONE 10 MG/ML 10 MG in SOD CHLORIDE 0.9% 50 ML IVPB (21:44)
[2017-12-16] MEDS: DIPHENHYDRAMINE 50 MG INJ IV (21:44)
[2017-12-16] MEDS: DOXORUBICIN IV (22:32)
[2017-12-16] MEDS: CYCLOBENZAPRINE 10 MG TAB PO (23:14)
[2017-12-16] MEDS: IFOSFAMIDE IV (23:29)
[2017-12-17] MEDS: METOCLOPRAMIDE 10 MG INJ IV ×4 (00:35→18:03)
[2017-12-17] MEDS: MESNA IV (01:07)
[2017-12-17] MEDS: SOD CHLORIDE 0.9% IV (01:07)
[2017-12-17] MEDS: HYDROmorphONE 0.5 MG/0.5 ML SYG IV ×5 (02:10→20:56)
[2017-12-17] MEDS: OXYCODONE/ACETAMINOPHEN (5/325) TAB PO (04:06)
[2017-12-17 05:06] LABS: ADD MAN DIFF? NO
[2017-12-17 05:16] LABS: ABNORMAL IP MESSAGE 1; HEMATOCRIT 29.7 % (37.0-47.0); LYMPHOCYTES # 0.2 10^3/ul (0.8-2.9); LYMPHOCYTES % 4.8 % (15.0-51.0); MEAN CORPUSCULAR HEMOGLOBIN 26.6 pg (29.0-33.0); MEAN CORPUSCULAR HGB CONC 30.3 g/dl (32.0-37.0); MEAN CORPUSCULAR VOLUME 87.9 fl (82.0-101.0); MEAN PLATELET VOLUME 9.8 fl (7.4-10.4); MONOCYTE # 0.1 10^3/ul (0.3-0.9); MONOCYTES % 1.5 % (0.0-11.0); NEUTROPHIL # 3.7 10^3/ul (1.6-7.5); NEUTROPHILS % 93.2 % (39.0-77.0); PLATELET COUNT 161 10^3/UL (140-415); RED BLOOD COUNT 3.38 10^6/ul (4.20-5.40); RED CELL DISTRIBUTION WIDTH 16.1 % (11.5-14.5)
[2017-12-17 05:20] LABS: POSITIVE DIFF @See below
[2017-12-17 05:46] LABS: ALANINE AMINOTRANSFERASE 14 IU/L (13-69); ALBUMIN 3.3 g/dl (3.3-4.9); ALBUMIN/GLOBULIN RATIO 1.03; ALKALINE PHOSPHATASE 87 IU/L (42-121); ANION GAP 13 (8-16); ASPARTATE AMINO TRANSFERASE 9 IU/L (15-46); BILIRUBIN,INDIRECT 0.1 mg/dl (0-1.1); BILIRUBIN,TOTAL 0.1 mg/dl (0.2-1.3); BLOOD UREA NITROGEN 8 mg/dl (7-20); CALCIUM 8.6 mg/dl (8.4-10.2); CARBON DIOXIDE 26 mmol/L (21-31); CHLORIDE 110 mmol/L (97-110); CREATININE 0.46 mg/dl (0.44-1.00); GLUCOSE 114 mg/dl (70-220); POTASSIUM 3.8 mmol/L (3.5-5.1); SODIUM 145 mmol/L (135-144); TOTAL PROTEIN 6.5 g/dl (6.1-8.1)
[2017-12-17] MEDS: PANTOPRAZOLE 40 MG INJ IV (06:14)
[2017-12-17] MEDS: ONDANSETRON 4 MG INJ IV (08:00)
[2017-12-17] MEDS: ENOXAPARIN 40 MG/0.4 ML SYG SC (08:51)
[2017-12-17] MEDS: GABAPENTIN 300 MG CAP PO ×3 (08:58→20:44)
[2017-12-17] MEDS: morphine (ER) 30 MG TAB PO ×2 (08:58→20:44)
[2017-12-17] MEDS: SOD CHLORIDE 0.9% 1,000 ML IV ×3 (08:59→20:50)
[2017-12-17 11:21] LABS: ADD UMIC NO; UR ASCORBIC ACID 20 mg/dL (NEGATIVE); UR BILIRUBIN (Dip) NEGATIVE (NEGATIVE); UR BLOOD (Dip) NEGATIVE (NEGATIVE); UR CLARITY CLEAR (CLEAR); UR COLOR YELLOW (YELLOW); UR GLUCOSE (Dip) 1+ mg/dL (NEGATIVE); UR KETONES (Dip) 1+ mg/dL (NEGATIVE); UR LEUKOCYTE ESTERASE (Dip) NEGATIVE Leu/ul (NEGATIVE); UR NITRITE (Dip) NEGATIVE (NEGATIVE); UR SPECIFIC GRAVITY (Dip) 1.014 (1.003-1.030); UR TOTAL PROTEIN (Dip) NEGATIVE (NEGATIVE); UR UROBILINOGEN (Dip) NEGATIVE (NEGATIVE)
[2017-12-17] MEDS ORDERED: ONDANSETRON INJ 8 MG in DEXTROSE 5% 50 ML IV (15:00)
[2017-12-17] MEDS: LORAZEPAM 2 MG INJ IV (18:03)
[2017-12-17] MEDS: CYCLOBENZAPRINE 10 MG TAB PO (20:55)
[2017-12-17] MEDS: ZOLPIDEM 5 MG TAB PO (22:47)
[2017-12-18] MEDS: METOCLOPRAMIDE 10 MG INJ IV ×4 (01:07→18:01)
[2017-12-18] MEDS: SOD CHLORIDE 0.9% IV (01:07)
[2017-12-18] MEDS: MESNA IV (01:07)
[2017-12-18] MEDS: HYDROmorphONE 0.5 MG/0.5 ML SYG IV ×6 (01:08→22:08)
[2017-12-18] MEDS: PANTOPRAZOLE 40 MG INJ IV (05:13)
[2017-12-18 05:38] LABS: ADD MAN DIFF? NO
[2017-12-18 05:48] LABS: ABNORMAL IP MESSAGE 1; EOSINOPHILS % 0.3 % (0.0-7.0); HEMATOCRIT 29.4 % (37.0-47.0); HEMOGLOBIN 9.1 g/dl (12.0-16.0); LYMPHOCYTES # 0.4 10^3/ul (0.8-2.9); LYMPHOCYTES % 9.2 % (15.0-51.0); MEAN CORPUSCULAR HEMOGLOBIN 26.7 pg (29.0-33.0); MEAN CORPUSCULAR VOLUME 86.2 fl (82.0-101.0); MEAN PLATELET VOLUME 10.1 fl (7.4-10.4); MONOCYTE # 0.1 10^3/ul (0.3-0.9); MONOCYTES % 2.1 % (0.0-11.0); NEUTROPHIL # 3.4 10^3/ul (1.6-7.5); NEUTROPHILS % 88.1 % (39.0-77.0); PLATELET COUNT 173 10^3/UL (140-415); RED BLOOD COUNT 3.41 10^6/ul (4.20-5.40); RED CELL DISTRIBUTION WIDTH 15.9 % (11.5-14.5)
[2017-12-18 05:48] LABS: WHITE BLOOD COUNT 3.8 10^3/ul (4.8-10.8)
[2017-12-18 06:01] LABS: POSITIVE DIFF @See below
[2017-12-18 06:13] LABS: ALANINE AMINOTRANSFERASE 14 IU/L (13-69); ALBUMIN 3.1 g/dl (3.3-4.9); ALBUMIN/GLOBULIN RATIO 1.03; ALKALINE PHOSPHATASE 89 IU/L (42-121); ANION GAP 13 (8-16); ASPARTATE AMINO TRANSFERASE 12 IU/L (15-46); BILIRUBIN,INDIRECT 0.1 mg/dl (0-1.1); BILIRUBIN,TOTAL 0.1 mg/dl (0.2-1.3); BLOOD UREA NITROGEN 9 mg/dl (7-20); CALCIUM 8.2 mg/dl (8.4-10.2); CARBON DIOXIDE 26 mmol/L (21-31); CHLORIDE 108 mmol/L (97-110); CREATININE 0.53 mg/dl (0.44-1.00); GLUCOSE 95 mg/dl (70-220); POTASSIUM 3.3 mmol/L (3.5-5.1); SODIUM 144 mmol/L (135-144); TOTAL PROTEIN 6.1 g/dl (6.1-8.1)
[2017-12-18] MEDS: SOD CHLORIDE 0.9% 1,000 ML IV ×2 (09:12→19:09)
[2017-12-18] MEDS: GABAPENTIN 300 MG CAP PO ×3 (09:13→21:19)
[2017-12-18] MEDS: morphine (ER) 30 MG TAB PO ×2 (09:13→21:19)
[2017-12-18] MEDS: ENOXAPARIN 40 MG/0.4 ML SYG SC (09:17)
[2017-12-18] MEDS: POTASSIUM CHLORIDE (SR) 20 MEQ TAB PO (10:06)
[2017-12-18] MEDS: BISACODYL 10 MG SUPP PR (13:36)
[2017-12-18] MEDS: MAGNESIUM HYDROXIDE 30ML CUP PO ×2 (14:10→21:18)
[2017-12-18 14:13] LABS: ADD UMIC NO; UR ASCORBIC ACID NEGATIVE (NEGATIVE); UR BILIRUBIN (Dip) NEGATIVE (NEGATIVE); UR BLOOD (Dip) NEGATIVE (NEGATIVE); UR CLARITY CLEAR (CLEAR); UR COLOR STRAW (YELLOW); UR GLUCOSE (Dip) 1+ mg/dL (NEGATIVE); UR KETONES (Dip) 1+ mg/dL (NEGATIVE); UR LEUKOCYTE ESTERASE (Dip) NEGATIVE Leu/ul (NEGATIVE); UR NITRITE (Dip) NEGATIVE (NEGATIVE); UR TOTAL PROTEIN (Dip) NEGATIVE (NEGATIVE); UR UROBILINOGEN (Dip) NEGATIVE (NEGATIVE)
[2017-12-18] MEDS: LORAZEPAM 2 MG INJ IV (21:30)
[2017-12-19] MEDS: METOCLOPRAMIDE 10 MG INJ IV ×3 (00:26→11:58)
[2017-12-19] MEDS: SOD CHLORIDE 0.9% IV (00:27)
[2017-12-19] MEDS: ZOLPIDEM 5 MG TAB PO (00:27)
[2017-12-19] MEDS: MESNA IV (00:27)
[2017-12-19] MEDS: HYDROmorphONE 0.5 MG/0.5 ML SYG IV ×3 (04:51→13:20)
[2017-12-19 05:47] LABS: ADD MAN DIFF? NO
[2017-12-19 05:56] LABS: WHITE BLOOD COUNT 2.6 10^3/ul (4.8-10.8)
[2017-12-19 05:56] LABS: ABNORMAL IP MESSAGE 1; EOSINOPHILS % 1.1 % (0.0-7.0); HEMATOCRIT 27.9 % (37.0-47.0); HEMOGLOBIN 8.7 g/dl (12.0-16.0); LYMPHOCYTES # 0.2 10^3/ul (0.8-2.9); LYMPHOCYTES % 9.1 % (15.0-51.0); MEAN CORPUSCULAR HEMOGLOBIN 26.6 pg (29.0-33.0); MEAN CORPUSCULAR HGB CONC 31.2 g/dl (32.0-37.0); MEAN CORPUSCULAR VOLUME 85.3 fl (82.0-101.0); MONOCYTES % 0.4 % (0.0-11.0); NEUTROPHIL # 2.3 10^3/ul (1.6-7.5); PLATELET COUNT 142 10^3/UL (140-415); RED BLOOD COUNT 3.27 10^6/ul (4.20-5.40); RED CELL DISTRIBUTION WIDTH 15.6 % (11.5-14.5)
[2017-12-19] MEDS: PANTOPRAZOLE 40 MG INJ IV (06:16)
[2017-12-19 06:21] LABS: ALANINE AMINOTRANSFERASE 23 IU/L (13-69); ALBUMIN 2.8 g/dl (3.3-4.9); ALKALINE PHOSPHATASE 70 IU/L (42-121); ANION GAP 11 (8-16); ASPARTATE AMINO TRANSFERASE < 8 IU/L (15-46); BILIRUBIN,INDIRECT 0.1 mg/dl (0-1.1); BILIRUBIN,TOTAL 0.1 mg/dl (0.2-1.3); BLOOD UREA NITROGEN 5 mg/dl (7-20); CALCIUM 7.5 mg/dl (8.4-10.2); CARBON DIOXIDE 24 mmol/L (21-31); CHLORIDE 111 mmol/L (97-110); CREATININE 0.36 mg/dl (0.44-1.00); GLUCOSE 73 mg/dl (70-220); POTASSIUM 3.2 mmol/L (3.5-5.1); SODIUM 143 mmol/L (135-144); TOTAL PROTEIN 5.6 g/dl (6.1-8.1)
[2017-12-19 06:36] LABS: POSITIVE DIFF @See below
[2017-12-19] MEDS: CYCLOBENZAPRINE 10 MG TAB PO (07:41)
[2017-12-19] MEDS: GABAPENTIN 300 MG CAP PO ×2 (08:59→11:57)
[2017-12-19] MEDS: ENOXAPARIN 40 MG/0.4 ML SYG SC (09:00)
[2017-12-19] MEDS: morphine (ER) 30 MG TAB PO (09:00)
[2017-12-19] MEDS: MAGNESIUM HYDROXIDE 30ML CUP PO (09:00)
[2017-12-19] MEDS: ONDANSETRON 4 MG INJ IV (09:07)
[2017-12-19] MEDS: SOD CHLORIDE 0.9% 1,000 ML IV (09:30)
[2017-12-19] MEDS: LORAZEPAM 2 MG INJ IV (11:57)
[2017-12-19 14:43] LABS: ADD UMIC NO; UR AMORPHOUS CRYSTAL FEW /HPF (NONE SEEN); UR ASCORBIC ACID NEGATIVE (NEGATIVE); UR BACTERIA FEW /HPF (NONE SEEN); UR BILIRUBIN (Dip) NEGATIVE (NEGATIVE); UR BLOOD (Dip) NEGATIVE (NEGATIVE); UR CLARITY SLIGHTLY CLOUDY (CLEAR); UR COLOR YELLOW (YELLOW); UR GLUCOSE (Dip) 1+ mg/dL (NEGATIVE); UR KETONES (Dip) 1+ mg/dL (NEGATIVE); UR LEUKOCYTE ESTERASE (Dip) NEGATIVE Leu/ul (NEGATIVE); UR NITRITE (Dip) NEGATIVE (NEGATIVE); UR RBC 0 /HPF (0-5); UR SPECIFIC GRAVITY (Dip) 1.006 (1.003-1.030); UR TOTAL PROTEIN (Dip) NEGATIVE (NEGATIVE); UR UROBILINOGEN (Dip) NEGATIVE (NEGATIVE); UR WBC 1 /HPF (0-5)
[2017-12-20] MEDS ORDERED: POTASSIUM CHLORIDE (SR) 10 MEQ TAB PO (09:00)
== END 2017-12-19 16:30 | disposition home health service (06) | DRG 847 ==
LOC: REC 12:17 → MS1 12:17
PROC: 3E04305 Introduction of Other Antineoplastic into Central Vein, Percutaneous Approach (ICD-10-PCS; principal; 2017-12-14)
DX: Z51.11 Encounter for antineoplastic chemotherapy (principal); C79.51 Secondary malignant neoplasm of bone; C55 Malignant neoplasm of uterus, part unspecified; K59.00 Constipation, unspecified; F32.9 Major depressive disorder, single episode, unspecified
CPT/HCPCS: 70542; 80048; 80053; 81001; 81003; 83735; 84100; 85025; 97116; 97161; J9209

== ENCOUNTER 2018-03-14 00:17 | Inpatient (IN) | payer MEDICAID, OTHER ==
[2018-03-14] MEDS: HYDROmorphONE 1 MG/ML SYG IV (01:04)
[2018-03-14] MEDS: SOD CHLORIDE 0.9% 1,000 ML IV (01:04)
[2018-03-14] MEDS: ONDANSETRON 4 MG INJ IV (01:04)
[2018-03-14 01:05] LABS: ADD MAN DIFF? NO
[2018-03-14 01:06] LABS: BASOPHILS % 0.6 % (0.0-2.0); EOSINOPHILS # 0.1 10^3/ul (0.0-0.5); EOSINOPHILS % 2.2 % (0.0-7.0); HEMATOCRIT 37.3 % (37.0-47.0); HEMOGLOBIN 11.8 g/dl (12.0-16.0); LYMPHOCYTES # 0.6 10^3/ul (0.8-2.9); LYMPHOCYTES % 9.3 % (15.0-51.0); MEAN CORPUSCULAR HEMOGLOBIN 29.4 pg (29.0-33.0); MEAN CORPUSCULAR HGB CONC 31.6 g/dl (32.0-37.0); MEAN CORPUSCULAR VOLUME 92.8 fl (82.0-101.0); MEAN PLATELET VOLUME 8.8 fl (7.4-10.4); MONOCYTE # 0.4 10^3/ul (0.3-0.9); NEUTROPHIL # 5.3 10^3/ul (1.6-7.5); NEUTROPHILS % 81.4 % (39.0-77.0); PLATELET COUNT 267 10^3/UL (140-415); RED BLOOD COUNT 4.02 10^6/ul (4.20-5.40); RED CELL DISTRIBUTION WIDTH 14.1 % (11.5-14.5)
[2018-03-14 01:06] LABS: WHITE BLOOD COUNT 6.5 10^3/ul (4.8-10.8)
[2018-03-14 01:29] LABS: ANION GAP 14 (8-16); BLOOD UREA NITROGEN 12 mg/dl (7-20); CALCIUM 9.1 mg/dl (8.4-10.2); CARBON DIOXIDE 29 mmol/L (21-31); CHLORIDE 101 mmol/L (97-110); CREATININE 0.52 mg/dl (0.44-1.00); GLUCOSE 92 mg/dl (70-220); POTASSIUM 3.8 mmol/L (3.5-5.1); SODIUM 140 mmol/L (135-144)
[2018-03-14] MEDS ORDERED: ACETAMINOPHEN 325 MG TAB PO ×2 (02:00→02:30)
[2018-03-14] MEDS ORDERED: ONDANSETRON 4 MG INJ IV (02:00)
[2018-03-14] MEDS: HYDROmorphONE 2 MG/ML SYG IV (02:29)
[2018-03-14] MEDS ORDERED: ALBUTEROL/IPRATROPIUM (NEB) 3 ML AMP HHN (02:30)
[2018-03-14] MEDS ORDERED: NACL 0.9% 3 ML SYG IV (02:30)
[2018-03-14] MEDS: CYCLOBENZAPRINE 10 MG TAB PO (03:27)
[2018-03-14] MEDS: morphine 2 MG INJ IV ×2 (04:07→08:49)
[2018-03-14] MEDS: HYDROCODONE/APAP (5/325) TAB PO ×2 (06:36→21:50)
[2018-03-14] MEDS: DOCUSATE SODIUM 100 MG CAP PO ×2 (08:43→20:49)
[2018-03-14] MEDS: POLYETHYLENE GLYCOL 17 GM PACKET PO (08:43)
[2018-03-14] MEDS: GABAPENTIN 300 MG CAP PO ×3 (08:43→20:50)
[2018-03-14] MEDS: morphine (ER) 30 MG TAB PO ×2 (08:43→20:49)
[2018-03-14] MEDS: HEPARIN 5,000 UNIT/0.5 ML VIAL SC ×2 (08:44→21:00)
[2018-03-14] MEDS: HYDROmorphONE 4 MG TAB PO (11:43)
[2018-03-14] MEDS: HYDROmorphONE 0.5 MG/0.5 ML SYG IV ×4 (13:47→23:14)
[2018-03-15] MEDS: CYCLOBENZAPRINE 10 MG TAB PO (00:29)
[2018-03-15] MEDS: HYDROmorphONE 0.5 MG/0.5 ML SYG IV ×2 (03:08→07:01)
[2018-03-15 05:19] LABS: ADD MAN DIFF? NO
[2018-03-15 05:22] LABS: BASOPHILS % 0.3 % (0.0-2.0); EOSINOPHILS # 0.1 10^3/ul (0.0-0.5); EOSINOPHILS % 1.4 % (0.0-7.0); HEMATOCRIT 35.2 % (37.0-47.0); LYMPHOCYTES # 0.8 10^3/ul (0.8-2.9); LYMPHOCYTES % 13.2 % (15.0-51.0); MEAN CORPUSCULAR HEMOGLOBIN 28.9 pg (29.0-33.0); MEAN CORPUSCULAR HGB CONC 31.3 g/dl (32.0-37.0); MEAN CORPUSCULAR VOLUME 92.4 fl (82.0-101.0); MEAN PLATELET VOLUME 8.9 fl (7.4-10.4); MONOCYTE # 0.5 10^3/ul (0.3-0.9); MONOCYTES % 7.9 % (0.0-11.0); NEUTROPHIL # 4.9 10^3/ul (1.6-7.5); NEUTROPHILS % 76.7 % (39.0-77.0); PLATELET COUNT 253 10^3/UL (140-415); RED BLOOD COUNT 3.81 10^6/ul (4.20-5.40); RED CELL DISTRIBUTION WIDTH 13.9 % (11.5-14.5)
[2018-03-15 05:22] LABS: WHITE BLOOD COUNT 6.4 10^3/ul (4.8-10.8)
[2018-03-15 06:19] LABS: ALANINE AMINOTRANSFERASE 16 IU/L (13-69); ALBUMIN 3.9 g/dl (3.3-4.9); ALBUMIN/GLOBULIN RATIO 1.34; ALKALINE PHOSPHATASE 120 IU/L (42-121); ANION GAP 12 (8-16); ASPARTATE AMINO TRANSFERASE 16 IU/L (15-46); BILIRUBIN,INDIRECT 0.2 mg/dl (0-1.1); BILIRUBIN,TOTAL 0.2 mg/dl (0.2-1.3); BLOOD UREA NITROGEN 4 mg/dl (7-20); CALCIUM 9.2 mg/dl (8.4-10.2); CARBON DIOXIDE 28 mmol/L (21-31); CHLORIDE 104 mmol/L (97-110); CREATININE 0.44 mg/dl (0.44-1.00); GLUCOSE 81 mg/dl (70-220); MAGNESIUM 1.9 mg/dl (1.7-2.5); POTASSIUM 4.2 mmol/L (3.5-5.1); SODIUM 140 mmol/L (135-144); TOTAL PROTEIN 6.8 g/dl (6.1-8.1)
[2018-03-15] MEDS: DOCUSATE SODIUM 100 MG CAP PO ×2 (08:14→20:14)
[2018-03-15] MEDS: GABAPENTIN 300 MG CAP PO ×3 (08:14→20:14)
[2018-03-15] MEDS: HYDROmorphONE 4 MG TAB PO (08:14)
[2018-03-15] MEDS: morphine (ER) 30 MG TAB PO ×2 (08:16→20:14)
[2018-03-15] MEDS: BARIUM SULF 2% 450 ML BTL (BERRY SMOOTHIE) PO (09:00)
[2018-03-15] MEDS: POLYETHYLENE GLYCOL 17 GM PACKET PO (09:00)
[2018-03-15] MEDS: HEPARIN 5,000 UNIT/0.5 ML VIAL SC ×2 (09:00→21:00)
[2018-03-15] MEDS: HYDROmorphONE 1 MG/ML SYG IV ×6 (09:40→22:55)
[2018-03-15 09:42] LABS: CANCER ANTIGEN 125 7.5 U/ml (0.0-35.0)
[2018-03-15 10:07] LABS: PROTIME 13.3 Sec (11.9-14.9)
[2018-03-15 10:08] LABS: PARTIAL THROMBOPLASTIN TIME 30.3 Sec (25.0-35.0)
[2018-03-15] MEDS: SOD CHLORIDE 0.9% 100 ML (11:22)
[2018-03-15] MEDS: IOHEXOL 300MG/ML 150 ML BTL (11:22)
[2018-03-15] MEDS: LORAZEPAM 2 MG INJ IV (11:49)
[2018-03-15] MEDS: ONDANSETRON 4 MG INJ IV (15:19)
[2018-03-15] MEDS: POLYMYXIN/BACITRACIN 1L IRRIG IRR (16:30)
[2018-03-15] MEDS: CEFAZOLIN 1 GM/50 ML (PMX) 50 ML IVPB (16:30)
[2018-03-16] MEDS: HYDROmorphONE 1 MG/ML SYG IV ×11 (01:05→22:18)
[2018-03-16] MEDS: LORAZEPAM 2 MG INJ IV ×3 (02:17→21:27)
[2018-03-16] MEDS: SOD CHLORIDE 0.9% 1,000 ML IV ×4 (03:38→22:00)
[2018-03-16] MEDS: POLYETHYLENE GLYCOL 17 GM PACKET PO (07:54)
[2018-03-16] MEDS: DOCUSATE SODIUM 100 MG CAP PO ×2 (07:54→21:10)
[2018-03-16] MEDS: HEPARIN 5,000 UNIT/0.5 ML VIAL SC ×2 (07:54→21:00)
[2018-03-16] MEDS: GABAPENTIN 300 MG CAP PO ×3 (08:24→21:09)
[2018-03-16] MEDS: morphine (ER) 30 MG TAB PO ×2 (08:24→21:10)
[2018-03-16] MEDS: CEFAZOLIN 1 GM/50 ML (PMX) 50 ML IVPB (13:39)
[2018-03-16] MEDS: MIDAZOLAM 1 MG/ML 2 ML INJ ×2 (13:39→14:52)
[2018-03-16] MEDS: FENTAnyl 50 MCG/ML VIAL ×2 (13:39→14:52)
[2018-03-16] MEDS: LIDOCAINE 1%/EPI 30 ML INJ (13:39)
[2018-03-16] MEDS: SOD CHLORIDE 0.9% 500 ML (13:39)
[2018-03-16] MEDS: HEPARIN 1000 UNITS/ML 10 ML INJ (13:39)
[2018-03-17] MEDS: HYDROmorphONE 1 MG/ML SYG IV ×11 (00:18→22:56)
[2018-03-17] MEDS: CYCLOBENZAPRINE 10 MG TAB PO ×2 (02:20→23:00)
[2018-03-17] MEDS: LORAZEPAM 2 MG INJ IV ×3 (05:54→23:50)
[2018-03-17] MEDS: SOD CHLORIDE 0.9% 1,000 ML IV ×4 (08:00→18:38)
[2018-03-17] MEDS: HEPARIN 5,000 UNIT/0.5 ML VIAL SC ×2 (09:00→20:17)
[2018-03-17] MEDS: POLYETHYLENE GLYCOL 17 GM PACKET PO (09:00)
[2018-03-17] MEDS: DOCUSATE SODIUM 100 MG CAP PO ×2 (09:20→20:21)
[2018-03-17] MEDS: morphine (ER) 30 MG TAB PO ×2 (09:20→20:22)
[2018-03-17] MEDS: GABAPENTIN 300 MG CAP PO ×3 (09:20→20:21)
[2018-03-17] MEDS ORDERED: METHYLPREDNISOLONE 125 MG INJ IV (10:30)
[2018-03-17] MEDS ORDERED: ONDANSETRON INJ 16 MG, DEXAMETHASONE 4 MG/ML 10 MG in DEXTROSE 5% 50 ML IV (10:30)
[2018-03-17] MEDS: ONDANSETRON INJ 16 MG, DEXAMETHASONE 4 MG/ML 10 MG in DEXTROSE 5% 50 ML IV (11:34)
[2018-03-17] MEDS: DIPHENHYDRAMINE 50 MG INJ IV (11:34)
[2018-03-17] MEDS ORDERED: HYDROmorphONE 1 MG/ML SYG IV (11:55)
[2018-03-17 12:13] LABS: ADD MAN DIFF? NO
[2018-03-17 12:15] LABS: ABNORMAL IP MESSAGE 1; BASOPHILS % 0.3 % (0.0-2.0); EOSINOPHILS # 0.1 10^3/ul (0.0-0.5); EOSINOPHILS % 0.8 % (0.0-7.0); HEMATOCRIT 32.7 % (37.0-47.0); HEMOGLOBIN 10.5 g/dl (12.0-16.0); LYMPHOCYTES # 0.5 10^3/ul (0.8-2.9); LYMPHOCYTES % 6.7 % (15.0-51.0); MEAN CORPUSCULAR HEMOGLOBIN 28.9 pg (29.0-33.0); MEAN CORPUSCULAR HGB CONC 32.1 g/dl (32.0-37.0); MEAN CORPUSCULAR VOLUME 90.1 fl (82.0-101.0); MEAN PLATELET VOLUME 8.9 fl (7.4-10.4); MONOCYTE # 0.6 10^3/ul (0.3-0.9); MONOCYTES % 7.9 % (0.0-11.0); NEUTROPHIL # 6.4 10^3/ul (1.6-7.5); NEUTROPHILS % 83.9 % (39.0-77.0); PLATELET COUNT 237 10^3/UL (140-415); RED BLOOD COUNT 3.63 10^6/ul (4.20-5.40)
[2018-03-17 12:15] LABS: WHITE BLOOD COUNT 7.6 10^3/ul (4.8-10.8)
[2018-03-17 12:16] LABS: POSITIVE DIFF @See below
[2018-03-17] MEDS: SOD CHLORIDE 0.9% IV ×4 (12:31→18:41)
[2018-03-17] MEDS: DOXORUBICIN IV (12:31)
[2018-03-17 12:33] LABS: ALANINE AMINOTRANSFERASE 24 IU/L (13-69); ALBUMIN 3.8 g/dl (3.3-4.9); ALBUMIN/GLOBULIN RATIO 1.18; ALKALINE PHOSPHATASE 128 IU/L (42-121); ANION GAP 12 (8-16); ASPARTATE AMINO TRANSFERASE 12 IU/L (15-46); BILIRUBIN,INDIRECT 0.4 mg/dl (0-1.1); BILIRUBIN,TOTAL 0.4 mg/dl (0.2-1.3); BLOOD UREA NITROGEN 6 mg/dl (7-20); CARBON DIOXIDE 28 mmol/L (21-31); CHLORIDE 100 mmol/L (97-110); CREATININE 0.49 mg/dl (0.44-1.00); GLUCOSE 103 mg/dl (70-220); POTASSIUM 4.1 mmol/L (3.5-5.1); SODIUM 136 mmol/L (135-144)
[2018-03-17] MEDS ORDERED: HYDROmorphONE 2 MG/ML SYG IV (13:30)
[2018-03-17] MEDS: MESNA IV ×2 (16:48→18:41)
[2018-03-17] MEDS: IFOSFAMIDE IV (16:50)
[2018-03-17] MEDS ORDERED: FILGRASTIM 480 MCG INJ SC (17:00)
[2018-03-18] MEDS: HYDROmorphONE 1 MG/ML SYG IV ×6 (02:28→13:56)
[2018-03-18] MEDS: SOD CHLORIDE 0.9% 1,000 ML IV ×2 (04:51→16:00)
[2018-03-18] MEDS: POLYETHYLENE GLYCOL 17 GM PACKET PO (09:00)
[2018-03-18] MEDS: HEPARIN 5,000 UNIT/0.5 ML VIAL SC ×2 (09:00→21:00)
[2018-03-18] MEDS: GABAPENTIN 300 MG CAP PO ×3 (09:20→21:21)
[2018-03-18] MEDS: DOCUSATE SODIUM 100 MG CAP PO ×2 (09:20→21:22)
[2018-03-18] MEDS: morphine (ER) 30 MG TAB PO ×2 (09:20→22:10)
[2018-03-18] MEDS: LORAZEPAM 2 MG INJ IV ×2 (15:17→21:22)
[2018-03-18] MEDS: HYDROmorphONE 2 MG/ML SYG IV ×4 (15:56→22:04)
[2018-03-18] MEDS: ONDANSETRON INJ 16 MG, DEXAMETHASONE 4 MG/ML 10 MG in DEXTROSE 5% 50 ML IV (16:27)
[2018-03-18] MEDS: DIPHENHYDRAMINE 50 MG INJ IV (16:29)
[2018-03-18] MEDS: HYDROCODONE/APAP (5/325) TAB PO (16:49)
[2018-03-18] MEDS ORDERED: FILGRASTIM 480 MCG INJ SC (17:00)
[2018-03-18] MEDS: DOXORUBICIN IV (17:08)
[2018-03-18] MEDS: SOD CHLORIDE 0.9% IV ×3 (17:08→23:52)
[2018-03-18] MEDS: MESNA IV (19:20)
[2018-03-18] MEDS: IFOSFAMIDE IV (23:52)
[2018-03-19] MEDS: HYDROmorphONE 2 MG/ML SYG IV ×10 (01:02→23:17)
[2018-03-19] MEDS: SOD CHLORIDE 0.9% 1,000 ML IV ×3 (02:39→22:00)
[2018-03-19] MEDS: LORAZEPAM 2 MG INJ IV ×3 (03:58→21:00)
[2018-03-19] MEDS: HEPARIN 5,000 UNIT/0.5 ML VIAL SC ×2 (09:00→21:00)
[2018-03-19] MEDS: DOCUSATE SODIUM 100 MG CAP PO ×2 (09:10→21:00)
[2018-03-19] MEDS: morphine (ER) 30 MG TAB PO ×2 (09:10→21:00)
[2018-03-19] MEDS: POLYETHYLENE GLYCOL 17 GM PACKET PO ×2 (09:10→09:12)
[2018-03-19] MEDS: GABAPENTIN 300 MG CAP PO ×3 (09:10→21:00)
[2018-03-19] MEDS: HYDROCODONE/APAP (5/325) TAB PO (14:08)
[2018-03-19] MEDS: ONDANSETRON INJ 16 MG, DEXAMETHASONE 4 MG/ML 10 MG in DEXTROSE 5% 50 ML IV (16:28)
[2018-03-19] MEDS: DIPHENHYDRAMINE 50 MG INJ IV (16:31)
[2018-03-19] MEDS: SOD CHLORIDE 0.9% IV ×2 (17:13→18:52)
[2018-03-19] MEDS: DOXORUBICIN IV (17:13)
[2018-03-19] MEDS: MESNA IV (18:52)
[2018-03-19] MEDS: LUBIPROSTONE 8 MCG CAPSULE PO (21:00)
[2018-03-20] MEDS: IFOSFAMIDE IV (00:05)
[2018-03-20] MEDS: SOD CHLORIDE 0.9% IV ×2 (00:05→19:57)
[2018-03-20] MEDS: DIPHENHYDRAMINE 50 MG INJ IV ×2 (00:16→23:32)
[2018-03-20] MEDS: HYDROCODONE/APAP (5/325) TAB PO ×4 (00:23→17:36)
[2018-03-20] MEDS: HYDROmorphONE 2 MG/ML SYG IV ×9 (01:21→22:07)
[2018-03-20] MEDS: SOD CHLORIDE 0.9% 1,000 ML IV ×3 (04:55→15:32)
[2018-03-20] MEDS: LORAZEPAM 2 MG INJ IV ×2 (06:51→17:13)
[2018-03-20] MEDS: LUBIPROSTONE 8 MCG CAPSULE PO ×2 (08:34→20:55)
[2018-03-20] MEDS: DOCUSATE SODIUM 100 MG CAP PO ×2 (08:34→20:55)
[2018-03-20] MEDS: BUPROPION (XL) 150 MG TAB PO (08:35)
[2018-03-20] MEDS: morphine (ER) 30 MG TAB PO ×2 (08:35→20:55)
[2018-03-20] MEDS: GABAPENTIN 300 MG CAP PO ×3 (08:35→20:55)
[2018-03-20] MEDS: CYCLOBENZAPRINE 10 MG TAB PO ×2 (08:43→21:02)
[2018-03-20] MEDS: HEPARIN 5,000 UNIT/0.5 ML VIAL SC ×2 (08:45→20:57)
[2018-03-20] MEDS: ONDANSETRON 4 MG INJ IV (17:50)
[2018-03-20] MEDS: MESNA IV (19:57)
[2018-03-20] MEDS: ONDANSETRON INJ 16 MG, DEXAMETHASONE 4 MG/ML 10 MG in DEXTROSE 5% 50 ML IV (23:32)
[2018-03-21] MEDS: HYDROmorphONE 2 MG/ML SYG IV ×7 (00:12→13:48)
[2018-03-21] MEDS: IFOSFAMIDE IV (00:15)
[2018-03-21] MEDS: SOD CHLORIDE 0.9% IV (00:15)
[2018-03-21 06:05] LABS: WHITE BLOOD COUNT 7.5 10^3/ul (4.8-10.8)
[2018-03-21 06:05] LABS: ABNORMAL IP MESSAGE 1; HEMOGLOBIN 10.9 g/dl (12.0-16.0); MEAN CORPUSCULAR HEMOGLOBIN 29.7 pg (29.0-33.0); MEAN CORPUSCULAR HGB CONC 32.1 g/dl (32.0-37.0); MEAN CORPUSCULAR VOLUME 92.6 fl (82.0-101.0); MEAN PLATELET VOLUME 10.4 fl (7.4-10.4); PLATELET COUNT 259 10^3/UL (140-415); RED BLOOD COUNT 3.67 10^6/ul (4.20-5.40); RED CELL DISTRIBUTION WIDTH 12.7 % (11.5-14.5)
[2018-03-21 06:12] LABS: ADD MAN DIFF? YES; POSITIVE DIFF @See below
[2018-03-21 06:26] LABS: ANION GAP 13 (8-16); BLOOD UREA NITROGEN 7 mg/dl (7-20); CALCIUM 8.7 mg/dl (8.4-10.2); CARBON DIOXIDE 25 mmol/L (21-31); CHLORIDE 107 mmol/L (97-110); CREATININE 0.39 mg/dl (0.44-1.00); GLUCOSE 121 mg/dl (70-220); POTASSIUM 4.3 mmol/L (3.5-5.1); SODIUM 141 mmol/L (135-144)
[2018-03-21 07:36] LABS: BURR CELLS 1+ (0-0); LYMPHOCYTES #M 0.2 10^3/ul (0.8-2.9); LYMPHOCYTES % (M) 3 % (15-51); POLYCHROMASIA 2+ (0-0); SEGMENTED NEUTROPHILS (M) % 97 % (39-77); SMUDGE%M 2 % (0-0)
[2018-03-21] MEDS: POLYETHYLENE GLYCOL 17 GM PACKET PO (08:35)
[2018-03-21] MEDS: GABAPENTIN 300 MG CAP PO ×3 (08:37→20:42)
[2018-03-21] MEDS: LUBIPROSTONE 8 MCG CAPSULE PO ×2 (08:37→20:42)
[2018-03-21] MEDS: morphine (ER) 30 MG TAB PO ×2 (08:37→20:42)
[2018-03-21] MEDS: BUPROPION (XL) 150 MG TAB PO (08:37)
[2018-03-21] MEDS: DOCUSATE SODIUM 100 MG CAP PO ×2 (08:37→20:42)
[2018-03-21] MEDS: HEPARIN 5,000 UNIT/0.5 ML VIAL SC ×2 (09:00→20:38)
[2018-03-21] MEDS: LORAZEPAM 2 MG INJ IV (09:45)
[2018-03-21] MEDS: HYDROCODONE/APAP (5/325) TAB PO (14:36)
[2018-03-21] MEDS: HYDROmorphONE 1 MG/ML SYG IV ×4 (16:26→22:55)
[2018-03-21] MEDS: DIPHENHYDRAMINE 50 MG INJ IV (23:12)
[2018-03-22] MEDS: ONDANSETRON INJ 16 MG, DEXAMETHASONE 4 MG/ML 10 MG in DEXTROSE 5% 50 ML IV (00:03)
[2018-03-22] MEDS: DIPHENHYDRAMINE 50 MG INJ IV (00:04)
[2018-03-22] MEDS: SOD CHLORIDE 0.9% IV ×2 (00:29→01:07)
[2018-03-22] MEDS: MESNA IV (00:29)
[2018-03-22] MEDS: HYDROmorphONE 1 MG/ML SYG IV ×11 (00:59→23:24)
[2018-03-22] MEDS: IFOSFAMIDE IV (01:07)
[2018-03-22] MEDS: BUPROPION (XL) 150 MG TAB PO (08:32)
[2018-03-22] MEDS: LUBIPROSTONE 8 MCG CAPSULE PO ×2 (08:32→21:15)
[2018-03-22] MEDS: morphine (ER) 30 MG TAB PO ×2 (08:33→21:15)
[2018-03-22] MEDS: POLYETHYLENE GLYCOL 17 GM PACKET PO (08:33)
[2018-03-22] MEDS: GABAPENTIN 300 MG CAP PO ×3 (08:33→21:15)
[2018-03-22] MEDS: HEPARIN 5,000 UNIT/0.5 ML VIAL SC ×2 (08:33→20:43)
[2018-03-22] MEDS: DOCUSATE SODIUM 100 MG CAP PO ×2 (08:33→21:15)
[2018-03-22] MEDS: CYCLOBENZAPRINE 10 MG TAB PO ×2 (08:33→20:47)
[2018-03-22 11:33] LABS: WHITE BLOOD COUNT 6.7 10^3/ul (4.8-10.8)
[2018-03-22 11:33] LABS: ABNORMAL IP MESSAGE 1; HEMATOCRIT 34.2 % (37.0-47.0); HEMOGLOBIN 10.8 g/dl (12.0-16.0); MEAN CORPUSCULAR HEMOGLOBIN 29.3 pg (29.0-33.0); MEAN CORPUSCULAR HGB CONC 31.6 g/dl (32.0-37.0); MEAN CORPUSCULAR VOLUME 92.9 fl (82.0-101.0); MEAN PLATELET VOLUME 9.2 fl (7.4-10.4); PLATELET COUNT 217 10^3/UL (140-415); RED BLOOD COUNT 3.68 10^6/ul (4.20-5.40); RED CELL DISTRIBUTION WIDTH 12.5 % (11.5-14.5)
[2018-03-22 11:36] LABS: POSITIVE DIFF @See below
[2018-03-22 11:37] LABS: ADD MAN DIFF? YES
[2018-03-22 11:51] LABS: ANION GAP 14 (8-16); BLOOD UREA NITROGEN 10 mg/dl (7-20); CALCIUM 8.6 mg/dl (8.4-10.2); CARBON DIOXIDE 24 mmol/L (21-31); CHLORIDE 105 mmol/L (97-110); CREATININE 0.42 mg/dl (0.44-1.00); GLUCOSE 124 mg/dl (70-220); POTASSIUM 4.3 mmol/L (3.5-5.1); SODIUM 139 mmol/L (135-144)
[2018-03-22 12:15] LABS: ANISOCYTOSIS 1+ (0-0); BAND NEUTROPHILS % (M) 1 % (0-4); BURR CELLS 1+ (0-0); LYMPHOCYTES #M 0.3 10^3/ul (0.8-2.9); LYMPHOCYTES % (M) 5 % (15-51); PLATELET ESTIMATE NORMAL; POIKILOCYTOSIS 1+ (0-0); POLYCHROMASIA 1+ (0-0); SEG NEUT #M 6.3 10^3/ul (1.6-7.5); SEGMENTED NEUTROPHILS (M) % 94 % (39-77)
[2018-03-22] MEDS: BISACODYL 10 MG SUPP PR (14:43)
[2018-03-22] MEDS ORDERED: FILGRASTIM 480 MCG INJ SC (17:00)
[2018-03-23] MEDS: HYDROmorphONE 1 MG/ML SYG IV ×6 (02:41→14:37)
[2018-03-23] MEDS: LUBIPROSTONE 8 MCG CAPSULE PO (08:15)
[2018-03-23] MEDS: BUPROPION (XL) 150 MG TAB PO (08:15)
[2018-03-23] MEDS: DOCUSATE SODIUM 100 MG CAP PO (08:15)
[2018-03-23] MEDS: HEPARIN 5,000 UNIT/0.5 ML VIAL SC (08:15)
[2018-03-23] MEDS: morphine (ER) 30 MG TAB PO (08:15)
[2018-03-23] MEDS: GABAPENTIN 300 MG CAP PO ×2 (08:15→12:38)
[2018-03-23] MEDS: POLYETHYLENE GLYCOL 17 GM PACKET PO (08:16)
[2018-03-23] MEDS: ONDANSETRON 4 MG INJ IV (14:36)
[2018-03-23] MEDS: HEPARIN (100 UNITS/ML) 5 ML SYG CATHETER (15:50)
== END 2018-03-23 16:00 | disposition home or self-care (01) | DRG 544 ==
LOC: E/R 00:17 → MS1 01:39
PROC: 0JH60WZ Insertion of Totally Implantable Vascular Access Device into Chest Subcutaneous Tissue and Fascia, Open Approach (ICD-10-PCS; principal; 2018-03-16)
PROC: 02H633Z Insertion of Infusion Device into Right Atrium, Percutaneous Approach (ICD-10-PCS; 2018-03-16)
PROC: 3E04305 Introduction of Other Antineoplastic into Central Vein, Percutaneous Approach (ICD-10-PCS; 2018-03-17)
DX: C79.51 Secondary malignant neoplasm of bone (principal); G89.3 Neoplasm related pain (acute) (chronic); K59.00 Constipation, unspecified; Z92.21 Personal history of antineoplastic chemotherapy; Z92.3 Personal history of irradiation; Z85.42 Personal history of malignant neoplasm of other parts of uterus
CPT/HCPCS: 36415; 36561; 70491; 71260; 74177; 76856; 76942; 80048; 80053; 83735; 84100; 84702; 85025; 85610; 85730; 86304; 93970; 96374; 96375; 99285-25; J9209

== ENCOUNTER 2018-04-20 10:56 | Inpatient (IN) | payer MEDICAID ==
[2018-04-20] MEDS: SOD CHLORIDE 0.9% 1,000 ML IV (14:05)
[2018-04-20 14:40] LABS: ADD MAN DIFF? NO
[2018-04-20 14:43] LABS: BASOPHILS % 0.8 % (0.0-2.0); EOSINOPHILS % 0.6 % (0.0-7.0); HEMATOCRIT 32.3 % (37.0-47.0); HEMOGLOBIN 10.4 g/dl (12.0-16.0); IMMATURE GRANS #M 0.03 10^3/ul; IMMATURE GRANS % (M) 0.6 %; LYMPHOCYTES # 0.6 10^3/ul (0.8-2.9); LYMPHOCYTES % 12.7 % (15.0-51.0); MEAN CORPUSCULAR HEMOGLOBIN 29.6 pg (29.0-33.0); MEAN CORPUSCULAR HGB CONC 32.2 g/dl (32.0-37.0); MEAN PLATELET VOLUME 9.3 fl (7.4-10.4); MONOCYTE # 0.4 10^3/ul (0.3-0.9); MONOCYTES % 8.5 % (0.0-11.0); NEUTROPHIL # 3.8 10^3/ul (1.6-7.5); NEUTROPHILS % 76.8 % (39.0-77.0); PLATELET COUNT 177 10^3/UL (140-415); RED BLOOD COUNT 3.51 10^6/ul (4.20-5.40); RED CELL DISTRIBUTION WIDTH 14.2 % (11.5-14.5)
[2018-04-20] MEDS ORDERED: ONDANSETRON 4 MG TAB PO (15:00)
[2018-04-20 15:04] LABS: ALANINE AMINOTRANSFERASE 17 IU/L (13-69); ALBUMIN 3.4 g/dl (3.3-4.9); ALBUMIN/GLOBULIN RATIO 1.13; ALKALINE PHOSPHATASE 103 IU/L (42-121); ANION GAP 12 (8-16); ASPARTATE AMINO TRANSFERASE 17 IU/L (15-46); BILIRUBIN,INDIRECT 0.1 mg/dl (0-1.1); BILIRUBIN,TOTAL 0.1 mg/dl (0.2-1.3); BLOOD UREA NITROGEN 6 mg/dl (7-20); CARBON DIOXIDE 26 mmol/L (21-31); CHLORIDE 106 mmol/L (97-110); CREATININE 0.43 mg/dl (0.44-1.00); GLUCOSE 90 mg/dl (70-220); POTASSIUM 3.8 mmol/L (3.5-5.1); SODIUM 140 mmol/L (135-144); TOTAL PROTEIN 6.4 g/dl (6.1-8.1)
[2018-04-20] MEDS: HYDROmorphONE 1 MG/ML SYG IV ×2 (15:20→19:41)
[2018-04-20] MEDS ORDERED: METHYLPREDNISOLONE 125 MG INJ IV (16:00)
[2018-04-20] MEDS ORDERED: MEPERIDINE 50 MG INJ IV (16:00)
[2018-04-20] MEDS ORDERED: ACETAMINOPHEN 325 MG TAB PO (16:30)
[2018-04-20] MEDS ORDERED: BISACODYL (EC) 5 MG TAB PO (16:30)
[2018-04-20] MEDS ORDERED: MAGNESIUM HYDROXIDE 30ML CUP PO (16:30)
[2018-04-20] MEDS ORDERED: NACL 0.9% 3 ML SYG IV ×2 (16:30)
[2018-04-20 17:50] LABS: ADD UMIC YES; UR AMORPHOUS CRYSTAL MANY /HPF (NONE SEEN); UR ASCORBIC ACID NEGATIVE (NEGATIVE); UR BACTERIA FEW /HPF (NONE SEEN); UR BILIRUBIN (Dip) NEGATIVE (NEGATIVE); UR BLOOD (Dip) NEGATIVE (NEGATIVE); UR CLARITY CLOUDY (CLEAR); UR COLOR YELLOW (YELLOW); UR GLUCOSE (Dip) NEGATIVE (NEGATIVE); UR KETONES (Dip) NEGATIVE (NEGATIVE); UR LEUKOCYTE ESTERASE (Dip) NEGATIVE Leu/ul (NEGATIVE); UR NITRITE (Dip) NEGATIVE (NEGATIVE); UR RBC 2 /HPF (0-5); UR SPECIFIC GRAVITY (Dip) 1.016 (1.003-1.030); UR SQUAMOUS EPITHELIAL CELL FEW /HPF (FEW); UR TOTAL PROTEIN (Dip) NEGATIVE (NEGATIVE); UR UROBILINOGEN (Dip) NEGATIVE (NEGATIVE); UR WBC 8 /HPF (0-5)
[2018-04-20] MEDS ORDERED: DIPHENHYDRAMINE 50 MG INJ IV (20:00)
[2018-04-20] MEDS: GABAPENTIN 300 MG CAP PO (20:22)
[2018-04-20] MEDS: LORAZEPAM 1 MG TAB PO (20:22)
[2018-04-20] MEDS: morphine (ER) 30 MG TAB PO (20:23)
[2018-04-21] MEDS: HYDROmorphONE 1 MG/ML SYG IV ×9 (01:10→22:57)
[2018-04-21] MEDS: SOD CHLORIDE 0.9% 1,000 ML IV ×3 (04:38→20:32)
[2018-04-21 05:50] LABS: ADD MAN DIFF? NO
[2018-04-21 06:03] LABS: BASOPHILS % 1.1 % (0.0-2.0); EOSINOPHILS % 1.5 % (0.0-7.0); HEMATOCRIT 31.8 % (37.0-47.0); HEMOGLOBIN 9.9 g/dl (12.0-16.0); IMMATURE GRANS #M 0.01 10^3/ul; IMMATURE GRANS % (M) 0.4 %; LYMPHOCYTES # 0.7 10^3/ul (0.8-2.9); MEAN CORPUSCULAR HEMOGLOBIN 28.6 pg (29.0-33.0); MEAN CORPUSCULAR HGB CONC 31.1 g/dl (32.0-37.0); MEAN CORPUSCULAR VOLUME 91.9 fl (82.0-101.0); MEAN PLATELET VOLUME 9.4 fl (7.4-10.4); MONOCYTE # 0.4 10^3/ul (0.3-0.9); MONOCYTES % 13.4 % (0.0-11.0); NEUTROPHIL # 1.6 10^3/ul (1.6-7.5); NEUTROPHILS % 58.6 % (39.0-77.0); PLATELET COUNT 178 10^3/UL (140-415); RED BLOOD COUNT 3.46 10^6/ul (4.20-5.40); RED CELL DISTRIBUTION WIDTH 14.4 % (11.5-14.5)
[2018-04-21 06:03] LABS: WHITE BLOOD COUNT 2.7 10^3/ul (4.8-10.8)
[2018-04-21 06:16] LABS: ANION GAP 8 (8-16); BLOOD UREA NITROGEN 4 mg/dl (7-20); CARBON DIOXIDE 28 mmol/L (21-31); CHLORIDE 108 mmol/L (97-110); CREATININE 0.42 mg/dl (0.44-1.00); GLUCOSE 80 mg/dl (70-220); MAGNESIUM 1.7 mg/dl (1.7-2.5); PHOSPHORUS 4.5 mg/dl (2.5-4.9); POTASSIUM 4.1 mmol/L (3.5-5.1); SODIUM 140 mmol/L (135-144)
[2018-04-21] MEDS: GABAPENTIN 300 MG CAP PO ×3 (08:53→21:20)
[2018-04-21] MEDS: LORAZEPAM 1 MG TAB PO ×2 (08:54→21:20)
[2018-04-21] MEDS: morphine (ER) 30 MG TAB PO ×2 (08:54→21:20)
[2018-04-21 09:29] LABS: HEMOGLOBIN A1C 5.3 % (0-5.9)
[2018-04-21] MEDS ORDERED: ONDANSETRON INJ 16 MG, DEXAMETHASONE 4 MG/ML 10 MG in SOD CHLORIDE 0.9% 50 ML IVPB (18:00)
[2018-04-21] MEDS: DIPHENHYDRAMINE 50 MG INJ IV (22:24)
[2018-04-21] MEDS: ONDANSETRON INJ 16 MG, DEXAMETHASONE 4 MG/ML 10 MG in SOD CHLORIDE 0.9% 50 ML IVPB (22:25)
[2018-04-21] MEDS: SOD CHLORIDE 0.9% IV (23:15)
[2018-04-21] MEDS: DOXORUBICIN IV (23:15)
[2018-04-22] MEDS: HYDROmorphONE 1 MG/ML SYG IV ×10 (00:57→22:39)
[2018-04-22] MEDS: SOD CHLORIDE 0.9% IV ×4 (01:01→23:19)
[2018-04-22] MEDS: MESNA IV ×2 (01:01→03:28)
[2018-04-22] MEDS: IFOSFAMIDE IV (01:02)
[2018-04-22 05:46] LABS: ADD MAN DIFF? NO
[2018-04-22 05:49] LABS: WHITE BLOOD COUNT 4.9 10^3/ul (4.8-10.8)
[2018-04-22 05:49] LABS: ABNORMAL IP MESSAGE 1; BASOPHILS % 0.2 % (0.0-2.0); HEMATOCRIT 33.7 % (37.0-47.0); HEMOGLOBIN 10.5 g/dl (12.0-16.0); LYMPHOCYTES # 0.2 10^3/ul (0.8-2.9); LYMPHOCYTES % 4.7 % (15.0-51.0); MEAN CORPUSCULAR HEMOGLOBIN 28.8 pg (29.0-33.0); MEAN CORPUSCULAR HGB CONC 31.2 g/dl (32.0-37.0); MEAN CORPUSCULAR VOLUME 92.6 fl (82.0-101.0); MEAN PLATELET VOLUME 9.8 fl (7.4-10.4); MONOCYTES % 0.8 % (0.0-11.0); NEUTROPHIL # 4.6 10^3/ul (1.6-7.5); NEUTROPHILS % 93.9 % (39.0-77.0); PLATELET COUNT 167 10^3/UL (140-415); RED BLOOD COUNT 3.64 10^6/ul (4.20-5.40); RED CELL DISTRIBUTION WIDTH 13.9 % (11.5-14.5)
[2018-04-22 05:52] LABS: POSITIVE DIFF @See below
[2018-04-22 06:20] LABS: ANION GAP 12 (8-16); BLOOD UREA NITROGEN 5 mg/dl (7-20); CALCIUM 8.8 mg/dl (8.4-10.2); CARBON DIOXIDE 25 mmol/L (21-31); CHLORIDE 107 mmol/L (97-110); CREATININE 0.45 mg/dl (0.44-1.00); GLUCOSE 153 mg/dl (70-220); POTASSIUM 4.1 mmol/L (3.5-5.1); SODIUM 140 mmol/L (135-144)
[2018-04-22] MEDS: GABAPENTIN 300 MG CAP PO ×3 (08:30→20:45)
[2018-04-22] MEDS: morphine (ER) 30 MG TAB PO ×2 (08:30→20:45)
[2018-04-22] MEDS: LORAZEPAM 1 MG TAB PO ×2 (08:30→20:44)
[2018-04-22 11:16] LABS: ADD UMIC NO; UR ASCORBIC ACID 40 mg/dL (NEGATIVE); UR BACTERIA FEW /HPF (NONE SEEN); UR BILIRUBIN (Dip) NEGATIVE (NEGATIVE); UR BLOOD (Dip) NEGATIVE (NEGATIVE); UR CLARITY CLEAR (CLEAR); UR COLOR YELLOW (YELLOW); UR GLUCOSE (Dip) 1+ mg/dL (NEGATIVE); UR KETONES (Dip) 1+ mg/dL (NEGATIVE); UR LEUKOCYTE ESTERASE (Dip) NEGATIVE Leu/ul (NEGATIVE); UR NITRITE (Dip) NEGATIVE (NEGATIVE); UR RBC 1 /HPF (0-5); UR SPECIFIC GRAVITY (Dip) 1.014 (1.003-1.030); UR SQUAMOUS EPITHELIAL CELL FEW /HPF (FEW); UR TOTAL PROTEIN (Dip) NEGATIVE (NEGATIVE); UR UROBILINOGEN (Dip) NEGATIVE (NEGATIVE); UR WBC 1 /HPF (0-5)
[2018-04-22] MEDS: CYCLOBENZAPRINE 10 MG TAB PO ×2 (12:20→20:44)
[2018-04-22] MEDS: SOD CHLORIDE 0.9% 1,000 ML IV (18:25)
[2018-04-22] MEDS: ONDANSETRON INJ 16 MG, DEXAMETHASONE 4 MG/ML 10 MG in SOD CHLORIDE 0.9% 50 ML IVPB (22:39)
[2018-04-22] MEDS: DOCUSATE SODIUM 100 MG CAP PO (22:39)
[2018-04-22] MEDS: DIPHENHYDRAMINE 50 MG INJ IV (22:49)
[2018-04-22] MEDS: DOXORUBICIN IV (23:19)
[2018-04-23] MEDS: HYDROmorphONE 1 MG/ML SYG IV ×7 (00:43→21:30)
[2018-04-23] MEDS: IFOSFAMIDE IV (00:55)
[2018-04-23] MEDS: SOD CHLORIDE 0.9% IV ×3 (00:55→23:35)
[2018-04-23] MEDS: MESNA IV (03:49)
[2018-04-23] MEDS: SOD CHLORIDE 0.9% 1,000 ML IV ×2 (07:10→13:53)
[2018-04-23] MEDS: CYCLOBENZAPRINE 10 MG TAB PO ×3 (08:53→21:29)
[2018-04-23] MEDS: morphine (ER) 30 MG TAB PO ×2 (08:53→21:29)
[2018-04-23] MEDS: GABAPENTIN 300 MG CAP PO ×3 (08:53→21:29)
[2018-04-23] MEDS: LORAZEPAM 1 MG TAB PO ×2 (08:53→19:47)
[2018-04-23 10:21] LABS: ADD UMIC NO; UR ASCORBIC ACID NEGATIVE (NEGATIVE); UR BILIRUBIN (Dip) NEGATIVE (NEGATIVE); UR BLOOD (Dip) NEGATIVE (NEGATIVE); UR CLARITY CLEAR (CLEAR); UR COLOR YELLOW (YELLOW); UR GLUCOSE (Dip) 1+ mg/dL (NEGATIVE); UR KETONES (Dip) 1+ mg/dL (NEGATIVE); UR LEUKOCYTE ESTERASE (Dip) NEGATIVE Leu/ul (NEGATIVE); UR NITRITE (Dip) NEGATIVE (NEGATIVE); UR TOTAL PROTEIN (Dip) NEGATIVE (NEGATIVE); UR UROBILINOGEN (Dip) NEGATIVE (NEGATIVE)
[2018-04-23] MEDS ORDERED: ONDANSETRON (ODT) 4 MG TAB ODT (13:00)
[2018-04-23] MEDS ORDERED: BISACODYL 10 MG SUPP PR (13:00)
[2018-04-23] MEDS: DOCUSATE SODIUM 100 MG CAP PO ×2 (14:02→21:30)
[2018-04-23 14:20] LABS: ADD MAN DIFF? NO
[2018-04-23 14:23] LABS: WHITE BLOOD COUNT 5.6 10^3/ul (4.8-10.8)
[2018-04-23 14:23] LABS: ABNORMAL IP MESSAGE 1; HEMATOCRIT 32.5 % (37.0-47.0); HEMOGLOBIN 10.3 g/dl (12.0-16.0); LYMPHOCYTES # 0.4 10^3/ul (0.8-2.9); LYMPHOCYTES % 6.4 % (15.0-51.0); MEAN CORPUSCULAR HEMOGLOBIN 29.6 pg (29.0-33.0); MEAN CORPUSCULAR HGB CONC 31.7 g/dl (32.0-37.0); MEAN CORPUSCULAR VOLUME 93.4 fl (82.0-101.0); MEAN PLATELET VOLUME 9.7 fl (7.4-10.4); MONOCYTE # 0.7 10^3/ul (0.3-0.9); MONOCYTES % 12.3 % (0.0-11.0); NEUTROPHIL # 4.5 10^3/ul (1.6-7.5); NEUTROPHILS % 80.8 % (39.0-77.0); PLATELET COUNT 170 10^3/UL (140-415); RED BLOOD COUNT 3.48 10^6/ul (4.20-5.40); RED CELL DISTRIBUTION WIDTH 14.2 % (11.5-14.5)
[2018-04-23 14:24] LABS: POSITIVE DIFF @See below
[2018-04-23 14:46] LABS: ALANINE AMINOTRANSFERASE 15 IU/L (13-69); ALBUMIN 3.4 g/dl (3.3-4.9); ALBUMIN/GLOBULIN RATIO 1.06; ALKALINE PHOSPHATASE 83 IU/L (42-121); ANION GAP 11 (8-16); ASPARTATE AMINO TRANSFERASE 16 IU/L (15-46); BILIRUBIN,INDIRECT 0.1 mg/dl (0-1.1); BILIRUBIN,TOTAL 0.1 mg/dl (0.2-1.3); BLOOD UREA NITROGEN 8 mg/dl (7-20); CARBON DIOXIDE 25 mmol/L (21-31); CHLORIDE 108 mmol/L (97-110); CREATININE 0.43 mg/dl (0.44-1.00); GLUCOSE 105 mg/dl (70-220); POTASSIUM 4.2 mmol/L (3.5-5.1); SODIUM 140 mmol/L (135-144); TOTAL PROTEIN 6.6 g/dl (6.1-8.1)
[2018-04-23] MEDS: BUPROPION (XL) 150 MG TAB PO (18:17)
[2018-04-23] MEDS: ONDANSETRON 4 MG INJ IV (18:21)
[2018-04-23] MEDS: ONDANSETRON INJ 16 MG, DEXAMETHASONE 4 MG/ML 10 MG in SOD CHLORIDE 0.9% 50 ML IVPB (22:41)
[2018-04-23] MEDS: DIPHENHYDRAMINE 50 MG INJ IV (22:56)
[2018-04-23] MEDS: DOXORUBICIN IV (23:35)
[2018-04-24] MEDS: HYDROmorphONE 1 MG/ML SYG IV ×7 (00:36→21:04)
[2018-04-24] MEDS: SOD CHLORIDE 0.9% IV ×2 (01:27→07:07)
[2018-04-24] MEDS: IFOSFAMIDE IV (01:27)
[2018-04-24 05:33] LABS: ADD MAN DIFF? NO
[2018-04-24 05:34] LABS: ABNORMAL IP MESSAGE 1; HEMATOCRIT 30.8 % (37.0-47.0); HEMOGLOBIN 9.7 g/dl (12.0-16.0); LYMPHOCYTES # 0.1 10^3/ul (0.8-2.9); LYMPHOCYTES % 1.9 % (15.0-51.0); MEAN CORPUSCULAR HEMOGLOBIN 28.8 pg (29.0-33.0); MEAN CORPUSCULAR HGB CONC 31.5 g/dl (32.0-37.0); MEAN CORPUSCULAR VOLUME 91.4 fl (82.0-101.0); MEAN PLATELET VOLUME 9.8 fl (7.4-10.4); MONOCYTE # 0.2 10^3/ul (0.3-0.9); MONOCYTES % 2.4 % (0.0-11.0); NEUTROPHIL # 6.7 10^3/ul (1.6-7.5); NEUTROPHILS % 95.3 % (39.0-77.0); PLATELET COUNT 138 10^3/UL (140-415); RED BLOOD COUNT 3.37 10^6/ul (4.20-5.40); RED CELL DISTRIBUTION WIDTH 14.1 % (11.5-14.5)
[2018-04-24 05:54] LABS: ALANINE AMINOTRANSFERASE 15 IU/L (13-69); ALBUMIN 3.2 g/dl (3.3-4.9); ALBUMIN/GLOBULIN RATIO 1.18; ALKALINE PHOSPHATASE 80 IU/L (42-121); ANION GAP 12 (8-16); ASPARTATE AMINO TRANSFERASE 15 IU/L (15-46); BILIRUBIN,INDIRECT 0.2 mg/dl (0-1.1); BILIRUBIN,TOTAL 0.2 mg/dl (0.2-1.3); BLOOD UREA NITROGEN 9 mg/dl (7-20); CALCIUM 8.4 mg/dl (8.4-10.2); CARBON DIOXIDE 24 mmol/L (21-31); CHLORIDE 110 mmol/L (97-110); CREATININE 0.45 mg/dl (0.44-1.00); GLUCOSE 106 mg/dl (70-220); POTASSIUM 3.8 mmol/L (3.5-5.1); SODIUM 142 mmol/L (135-144); TOTAL PROTEIN 5.9 g/dl (6.1-8.1)
[2018-04-24 06:27] LABS: POSITIVE DIFF @See below
[2018-04-24] MEDS: SOD CHLORIDE 0.9% 1,000 ML IV ×2 (07:07→19:17)
[2018-04-24] MEDS: MESNA IV (07:07)
[2018-04-24] MEDS: CYCLOBENZAPRINE 10 MG TAB PO ×3 (09:24→21:01)
[2018-04-24] MEDS: BUPROPION (XL) 150 MG TAB PO (09:24)
[2018-04-24] MEDS: GABAPENTIN 300 MG CAP PO ×3 (09:24→21:01)
[2018-04-24] MEDS: LORAZEPAM 1 MG TAB PO ×2 (09:24→22:05)
[2018-04-24] MEDS: DOCUSATE SODIUM 100 MG CAP PO ×2 (09:25→21:01)
[2018-04-24] MEDS: morphine (ER) 30 MG TAB PO ×2 (09:25→21:01)
[2018-04-24] MEDS: POLYETHYLENE GLYCOL 17 GM PACKET PO (09:25)
[2018-04-24 13:57] LABS: ADD UMIC YES; UR AMORPHOUS CRYSTAL FEW /HPF (NONE SEEN); UR ASCORBIC ACID NEGATIVE (NEGATIVE); UR BACTERIA FEW /HPF (NONE SEEN); UR BILIRUBIN (Dip) NEGATIVE (NEGATIVE); UR BLOOD (Dip) NEGATIVE (NEGATIVE); UR CLARITY CLOUDY (CLEAR); UR COLOR YELLOW (YELLOW); UR GLUCOSE (Dip) 1+ mg/dL (NEGATIVE); UR KETONES (Dip) TRACE mg/dL (NEGATIVE); UR LEUKOCYTE ESTERASE (Dip) NEGATIVE Leu/ul (NEGATIVE); UR NITRITE (Dip) NEGATIVE (NEGATIVE); UR RBC 1 /HPF (0-5); UR SPECIFIC GRAVITY (Dip) 1.012 (1.003-1.030); UR TOTAL PROTEIN (Dip) NEGATIVE (NEGATIVE); UR UROBILINOGEN (Dip) NEGATIVE (NEGATIVE); UR WBC 2 /HPF (0-5)
[2018-04-24] MEDS: DIPHENHYDRAMINE 50 MG INJ IV (17:49)
[2018-04-24] MEDS: ONDANSETRON INJ 16 MG, DEXAMETHASONE 4 MG/ML 10 MG in SOD CHLORIDE 0.9% 50 ML IVPB (19:17)
[2018-04-25] MEDS: ONDANSETRON 4 MG INJ IV (01:28)
[2018-04-25] MEDS: DIPHENHYDRAMINE 50 MG INJ IV (01:28)
[2018-04-25] MEDS: HYDROmorphONE 1 MG/ML SYG IV (01:28)
[2018-04-25] MEDS: IFOSFAMIDE IV (01:39)
[2018-04-25] MEDS: SOD CHLORIDE 0.9% IV ×2 (01:39→09:54)
[2018-04-25] MEDS: HYDROmorphONE 2 MG/ML SYG IV ×8 (03:38→23:08)
[2018-04-25 05:18] LABS: ADD MAN DIFF? NO
[2018-04-25 05:35] LABS: ABNORMAL IP MESSAGE 1; HEMATOCRIT 28.8 % (37.0-47.0); HEMOGLOBIN 9.4 g/dl (12.0-16.0); LYMPHOCYTES # 0.2 10^3/ul (0.8-2.9); LYMPHOCYTES % 4.6 % (15.0-51.0); MEAN CORPUSCULAR HEMOGLOBIN 29.9 pg (29.0-33.0); MEAN CORPUSCULAR HGB CONC 32.6 g/dl (32.0-37.0); MEAN CORPUSCULAR VOLUME 91.7 fl (82.0-101.0); MEAN PLATELET VOLUME 9.7 fl (7.4-10.4); MONOCYTE # 0.1 10^3/ul (0.3-0.9); MONOCYTES % 3.3 % (0.0-11.0); NEUTROPHIL # 3.6 10^3/ul (1.6-7.5); NEUTROPHILS % 91.8 % (39.0-77.0); PLATELET COUNT 130 10^3/UL (140-415); RED BLOOD COUNT 3.14 10^6/ul (4.20-5.40); RED CELL DISTRIBUTION WIDTH 13.9 % (11.5-14.5)
[2018-04-25 05:35] LABS: WHITE BLOOD COUNT 3.9 10^3/ul (4.8-10.8)
[2018-04-25 06:03] LABS: POSITIVE DIFF @See below
[2018-04-25 06:12] LABS: ALANINE AMINOTRANSFERASE 22 IU/L (13-69); ALBUMIN 2.7 g/dl (3.3-4.9); ALBUMIN/GLOBULIN RATIO 1.03; ALKALINE PHOSPHATASE 56 IU/L (42-121); ANION GAP 9 (8-16); ASPARTATE AMINO TRANSFERASE 9 IU/L (15-46); BILIRUBIN,INDIRECT 0.2 mg/dl (0-1.1); BILIRUBIN,TOTAL 0.2 mg/dl (0.2-1.3); BLOOD UREA NITROGEN 9 mg/dl (7-20); CALCIUM 7.5 mg/dl (8.4-10.2); CARBON DIOXIDE 21 mmol/L (21-31); CHLORIDE 114 mmol/L (97-110); CREATININE 0.31 mg/dl (0.44-1.00); GLUCOSE 87 mg/dl (70-220); POTASSIUM 3.3 mmol/L (3.5-5.1); SODIUM 141 mmol/L (135-144); TOTAL PROTEIN 5.3 g/dl (6.1-8.1)
[2018-04-25 07:13] LABS: ADD UMIC YES; UR AMORPHOUS CRYSTAL FEW /HPF (NONE SEEN); UR ASCORBIC ACID NEGATIVE (NEGATIVE); UR BACTERIA FEW /HPF (NONE SEEN); UR BILIRUBIN (Dip) NEGATIVE (NEGATIVE); UR BLOOD (Dip) NEGATIVE (NEGATIVE); UR CLARITY CLOUDY (CLEAR); UR COLOR YELLOW (YELLOW); UR GLUCOSE (Dip) 1+ mg/dL (NEGATIVE); UR KETONES (Dip) TRACE mg/dL (NEGATIVE); UR LEUKOCYTE ESTERASE (Dip) NEGATIVE Leu/ul (NEGATIVE); UR NITRITE (Dip) NEGATIVE (NEGATIVE); UR RBC 0 /HPF (0-5); UR SPECIFIC GRAVITY (Dip) 1.009 (1.003-1.030); UR SQUAMOUS EPITHELIAL CELL FEW /HPF (FEW); UR TOTAL PROTEIN (Dip) NEGATIVE (NEGATIVE); UR UROBILINOGEN (Dip) NEGATIVE (NEGATIVE); UR WBC 5 /HPF (0-5)
[2018-04-25] MEDS: POLYETHYLENE GLYCOL 17 GM PACKET PO (09:00)
[2018-04-25] MEDS: DOCUSATE SODIUM 100 MG CAP PO ×2 (09:00→20:29)
[2018-04-25] MEDS: GABAPENTIN 300 MG CAP PO ×3 (09:41→20:29)
[2018-04-25] MEDS: BUPROPION (XL) 150 MG TAB PO (09:41)
[2018-04-25] MEDS: CYCLOBENZAPRINE 10 MG TAB PO ×3 (09:42→20:29)
[2018-04-25] MEDS: LORAZEPAM 1 MG TAB PO ×2 (09:46→20:29)
[2018-04-25] MEDS: morphine (ER) 30 MG TAB PO ×2 (09:48→20:29)
[2018-04-25] MEDS: SOD CHLORIDE 0.9% 1,000 ML IV (09:53)
[2018-04-25] MEDS: MESNA IV (09:54)
[2018-04-25] MEDS: POTASSIUM CHLORIDE (SR) 10 MEQ TAB PO (15:40)
[2018-04-26] MEDS: SOD CHLORIDE 0.9% 1,000 ML IV ×3 (00:04→16:06)
[2018-04-26] MEDS: DIPHENHYDRAMINE 50 MG INJ IV (00:52)
[2018-04-26] MEDS: ONDANSETRON INJ 16 MG, DEXAMETHASONE 4 MG/ML 10 MG in SOD CHLORIDE 0.9% 50 ML IVPB (00:53)
[2018-04-26] MEDS: HYDROmorphONE 2 MG/ML SYG IV ×9 (01:12→23:52)
[2018-04-26] MEDS: SOD CHLORIDE 0.9% IV ×2 (01:21→09:43)
[2018-04-26] MEDS: IFOSFAMIDE IV (01:21)
[2018-04-26 05:22] LABS: ADD MAN DIFF? NO
[2018-04-26 05:26] LABS: WHITE BLOOD COUNT 4.2 10^3/ul (4.8-10.8)
[2018-04-26 05:26] LABS: ABNORMAL IP MESSAGE 1; EOSINOPHILS % 0.2 % (0.0-7.0); HEMATOCRIT 29.6 % (37.0-47.0); HEMOGLOBIN 9.7 g/dl (12.0-16.0); LYMPHOCYTES # 0.1 10^3/ul (0.8-2.9); LYMPHOCYTES % 1.9 % (15.0-51.0); MEAN CORPUSCULAR HGB CONC 32.8 g/dl (32.0-37.0); MEAN CORPUSCULAR VOLUME 91.6 fl (82.0-101.0); MEAN PLATELET VOLUME 9.7 fl (7.4-10.4); MONOCYTES % 0.5 % (0.0-11.0); NEUTROPHIL # 4.1 10^3/ul (1.6-7.5); NEUTROPHILS % 97.2 % (39.0-77.0); PLATELET COUNT 123 10^3/UL (140-415); RED BLOOD COUNT 3.23 10^6/ul (4.20-5.40)
[2018-04-26 05:38] LABS: POSITIVE DIFF @See below
[2018-04-26 06:09] LABS: ALANINE AMINOTRANSFERASE 18 IU/L (13-69); ALBUMIN 2.8 g/dl (3.3-4.9); ALBUMIN/GLOBULIN RATIO 1.07; ALKALINE PHOSPHATASE 63 IU/L (42-121); ANION GAP 11 (8-16); ASPARTATE AMINO TRANSFERASE 11 IU/L (15-46); BILIRUBIN,INDIRECT 0.1 mg/dl (0-1.1); BILIRUBIN,TOTAL 0.1 mg/dl (0.2-1.3); BLOOD UREA NITROGEN 8 mg/dl (7-20); CALCIUM 7.7 mg/dl (8.4-10.2); CARBON DIOXIDE 21 mmol/L (21-31); CHLORIDE 113 mmol/L (97-110); CREATININE 0.32 mg/dl (0.44-1.00); GLUCOSE 111 mg/dl (70-220); POTASSIUM 3.6 mmol/L (3.5-5.1); SODIUM 141 mmol/L (135-144); TOTAL PROTEIN 5.4 g/dl (6.1-8.1)
[2018-04-26] MEDS: CYCLOBENZAPRINE 10 MG TAB PO ×3 (09:43→21:15)
[2018-04-26] MEDS: DOCUSATE SODIUM 100 MG CAP PO ×3 (09:43→21:15)
[2018-04-26] MEDS: BUPROPION (XL) 150 MG TAB PO (09:43)
[2018-04-26] MEDS: POLYETHYLENE GLYCOL 17 GM PACKET PO (09:43)
[2018-04-26] MEDS: LORAZEPAM 1 MG TAB PO ×2 (09:43→21:16)
[2018-04-26] MEDS: GABAPENTIN 300 MG CAP PO ×3 (09:43→21:16)
[2018-04-26] MEDS: morphine (ER) 30 MG TAB PO ×2 (09:43→21:16)
[2018-04-26] MEDS: MESNA IV (09:43)
[2018-04-26] MEDS: FILGRASTIM 480 MCG INJ SC (16:28)
[2018-04-27] MEDS: HYDROmorphONE 2 MG/ML SYG IV ×4 (01:57→12:22)
[2018-04-27] MEDS: SOD CHLORIDE 0.9% 1,000 ML IV (05:29)
[2018-04-27 05:57] LABS: WHITE BLOOD COUNT 16.9 10^3/ul (4.8-10.8)
[2018-04-27 05:57] LABS: ABNORMAL IP MESSAGE 1; HEMATOCRIT 30.5 % (37.0-47.0); HEMOGLOBIN 9.7 g/dl (12.0-16.0); MEAN CORPUSCULAR HEMOGLOBIN 28.6 pg (29.0-33.0); MEAN CORPUSCULAR HGB CONC 31.8 g/dl (32.0-37.0); MEAN PLATELET VOLUME 10.2 fl (7.4-10.4); PLATELET COUNT 115 10^3/UL (140-415); RED BLOOD COUNT 3.39 10^6/ul (4.20-5.40); RED CELL DISTRIBUTION WIDTH 14.3 % (11.5-14.5)
[2018-04-27 06:05] LABS: ADD MAN DIFF? YES; POSITIVE DIFF @See below
[2018-04-27 06:52] LABS: ALANINE AMINOTRANSFERASE 21 IU/L (13-69); ALBUMIN 3.1 g/dl (3.3-4.9); ALBUMIN/GLOBULIN RATIO 1.24; ALKALINE PHOSPHATASE 84 IU/L (42-121); ANION GAP 12 (8-16); ASPARTATE AMINO TRANSFERASE 13 IU/L (15-46); BILIRUBIN,INDIRECT 0.4 mg/dl (0-1.1); BILIRUBIN,TOTAL 0.4 mg/dl (0.2-1.3); BLOOD UREA NITROGEN 12 mg/dl (7-20); CALCIUM 8.5 mg/dl (8.4-10.2); CARBON DIOXIDE 22 mmol/L (21-31); CHLORIDE 107 mmol/L (97-110); CREATININE 0.43 mg/dl (0.44-1.00); GLUCOSE 85 mg/dl (70-220); POTASSIUM 3.2 mmol/L (3.5-5.1); SODIUM 138 mmol/L (135-144); TOTAL PROTEIN 5.6 g/dl (6.1-8.1)
[2018-04-27 07:51] LABS: BAND NEUTROPHILS #M 0.3 10^3/ul (0.0-0.6); BAND NEUTROPHILS % (M) 2 % (0-4); LYMPHOCYTES #M 0.6 10^3/ul (0.8-2.9); LYMPHOCYTES % (M) 4 % (15-51); PLATELET ESTIMATE DECREASED; POIKILOCYTOSIS 1+ (0-0); SEG NEUT #M 15.9 10^3/ul (1.6-7.5); SEGMENTED NEUTROPHILS (M) % 94 % (39-77)
[2018-04-27] MEDS: BUPROPION (XL) 150 MG TAB PO (08:57)
[2018-04-27] MEDS: LORAZEPAM 1 MG TAB PO (08:57)
[2018-04-27] MEDS: POLYETHYLENE GLYCOL 17 GM PACKET PO (08:57)
[2018-04-27] MEDS: DOCUSATE SODIUM 100 MG CAP PO (08:57)
[2018-04-27] MEDS: GABAPENTIN 300 MG CAP PO ×2 (08:57→13:50)
[2018-04-27] MEDS: CYCLOBENZAPRINE 10 MG TAB PO ×2 (08:57→13:50)
[2018-04-27] MEDS: morphine (ER) 30 MG TAB PO (08:57)
[2018-04-27] MEDS: ONDANSETRON 4 MG INJ IV (09:46)
[2018-04-27 10:18] LABS: ADD UMIC NO; UR ASCORBIC ACID NEGATIVE (NEGATIVE); UR BILIRUBIN (Dip) NEGATIVE (NEGATIVE); UR BLOOD (Dip) NEGATIVE (NEGATIVE); UR CLARITY CLEAR (CLEAR); UR COLOR STRAW (YELLOW); UR GLUCOSE (Dip) 1+ mg/dL (NEGATIVE); UR KETONES (Dip) 1+ mg/dL (NEGATIVE); UR LEUKOCYTE ESTERASE (Dip) NEGATIVE Leu/ul (NEGATIVE); UR NITRITE (Dip) NEGATIVE (NEGATIVE); UR SPECIFIC GRAVITY (Dip) 1.011 (1.003-1.030); UR TOTAL PROTEIN (Dip) NEGATIVE (NEGATIVE); UR UROBILINOGEN (Dip) NEGATIVE (NEGATIVE)
[2018-04-27] MEDS: POTASSIUM CHLORIDE (SR) 20 MEQ TAB PO (11:27)
[2018-04-27] MEDS: HEPARIN (100 UNITS/ML) 5 ML SYG CATHETER (13:51)
[2018-04-27] MEDS: FILGRASTIM 480 MCG INJ SC (14:20)
== END 2018-04-27 14:20 | disposition home or self-care (01) | DRG 846 ==
LOC: MS1 10:56
PROC: 3E03305 Introduction of Other Antineoplastic into Peripheral Vein, Percutaneous Approach (ICD-10-PCS; principal; 2018-04-21)
DX: Z51.11 Encounter for antineoplastic chemotherapy (principal); D61.810 Antineoplastic chemotherapy induced pancytopenia; C79.51 Secondary malignant neoplasm of bone; C79.89 Secondary malignant neoplasm of other specified sites; C55 Malignant neoplasm of uterus, part unspecified; G89.3 Neoplasm related pain (acute) (chronic); E66.9 Obesity, unspecified; F32.9 Major depressive disorder, single episode, unspecified; E87.6 Hypokalemia; Z98.1 Arthrodesis status; Z90.710 Acquired absence of both cervix and uterus
CPT/HCPCS: 70490; 80048; 80053; 81001; 81003; 83036; 83735; 84100; 85025; 93306; J9209

== ENCOUNTER 2018-05-24 11:28 | Inpatient (IN) | payer MEDICAID ==
[2018-05-24] MEDS ORDERED: BISACODYL 10 MG SUPP PR ×2 (12:00→17:00)
[2018-05-24] MEDS ORDERED: ONDANSETRON 4 MG TAB PO (12:00)
[2018-05-24] MEDS ORDERED: HYDROmorphONE 4 MG TAB PO (12:00)
[2018-05-24] MEDS ORDERED: ACETAMINOPHEN 325 MG TAB PO ×2 (12:00→17:00)
[2018-05-24] MEDS: GABAPENTIN 300 MG CAP PO ×2 (12:52→20:57)
[2018-05-24] MEDS: SOD CHLORIDE 0.9% 1,000 ML IV ×2 (13:30→23:56)
[2018-05-24 14:20] LABS: ADD MAN DIFF? NO
[2018-05-24 14:21] LABS: ABNORMAL IP MESSAGE 1; EOSINOPHILS % 0.3 % (0.0-7.0); LYMPHOCYTES # 0.6 10^3/ul (0.8-2.9); LYMPHOCYTES % 14.4 % (15.0-51.0); MEAN CORPUSCULAR HEMOGLOBIN 29.7 pg (29.0-33.0); MEAN CORPUSCULAR VOLUME 95.7 fl (82.0-101.0); MEAN PLATELET VOLUME 9.3 fl (7.4-10.4); MONOCYTE # 0.6 10^3/ul (0.3-0.9); MONOCYTES % 15.4 % (0.0-11.0); NEUTROPHIL # 2.6 10^3/ul (1.6-7.5); NEUTROPHILS % 68.6 % (39.0-77.0); PLATELET COUNT 196 10^3/UL (140-415); RED BLOOD COUNT 3.03 10^6/ul (4.20-5.40); RED CELL DISTRIBUTION WIDTH 17.5 % (11.5-14.5)
[2018-05-24 14:21] LABS: WHITE BLOOD COUNT 3.8 10^3/ul (4.8-10.8)
[2018-05-24 14:25] LABS: POSITIVE DIFF @See below
[2018-05-24 14:39] LABS: ANION GAP 10 (8-16); BLOOD UREA NITROGEN 8 mg/dl (7-20); CARBON DIOXIDE 31 mmol/L (21-31); CHLORIDE 103 mmol/L (97-110); CREATININE 0.46 mg/dl (0.44-1.00); GLUCOSE 99 mg/dl (70-220); SODIUM 140 mmol/L (135-144)
[2018-05-24] MEDS ORDERED: DIPHENHYDRAMINE 50 MG INJ IV (16:30)
[2018-05-24] MEDS ORDERED: MEPERIDINE 50 MG INJ IV (16:30)
[2018-05-24] MEDS ORDERED: METHYLPREDNISOLONE 125 MG INJ IV (16:30)
[2018-05-24] MEDS ORDERED: METOCLOPRAMIDE 10 MG INJ IV (17:00)
[2018-05-24] MEDS ORDERED: BISACODYL (EC) 5 MG TAB PO (17:00)
[2018-05-24] MEDS ORDERED: DOCUSATE SODIUM 100 MG CAP PO ×2 (17:00→21:00)
[2018-05-24] MEDS ORDERED: MAGNESIUM HYDROXIDE 30ML CUP PO (17:00)
[2018-05-24] MEDS ORDERED: ONDANSETRON 4 MG INJ IV (17:00)
[2018-05-24] MEDS ORDERED: NACL 0.9% 3 ML SYG IV (17:00)
[2018-05-24] MEDS: HYDROmorphONE 4 MG TAB PO (20:59)
[2018-05-24] MEDS: morphine (ER) 30 MG TAB PO (20:59)
[2018-05-24] MEDS: DOCUSATE SODIUM 100 MG CAP PO (20:59)
[2018-05-24] MEDS ORDERED: morphine (ER) 30 MG TAB PO ×2 (21:00)
[2018-05-24] MEDS: DIPHENHYDRAMINE 50 MG INJ IV (22:20)
[2018-05-24] MEDS: ONDANSETRON INJ 16 MG, DEXAMETHASONE 10 MG/ML 10 MG in SOD CHLORIDE 0.9% 50 ML IVPB (22:20)
[2018-05-24] MEDS: SOD CHLORIDE 0.9% IV ×2 (23:03→23:50)
[2018-05-24] MEDS: MESNA IV (23:03)
[2018-05-24] MEDS: IFOSFAMIDE IV (23:50)
[2018-05-25] MEDS: HYDROmorphONE 4 MG TAB PO ×3 (03:48→22:07)
[2018-05-25] MEDS: CYCLOBENZAPRINE 10 MG TAB PO ×2 (06:34→20:38)
[2018-05-25] MEDS: DOCUSATE SODIUM 100 MG CAP PO ×2 (08:32→20:37)
[2018-05-25] MEDS: GABAPENTIN 300 MG CAP PO ×3 (08:33→20:37)
[2018-05-25] MEDS: POLYETHYLENE GLYCOL 17 GM PACKET PO (08:33)
[2018-05-25] MEDS: BUPROPION (XL) 150 MG TAB PO (08:33)
[2018-05-25] MEDS: morphine (ER) 30 MG TAB PO ×2 (08:33→20:38)
[2018-05-25] MEDS: SOD CHLORIDE 0.9% 1,000 ML IV ×2 (08:35→19:30)
[2018-05-25 08:47] LABS: ADD MAN DIFF? NO
[2018-05-25 08:49] LABS: WHITE BLOOD COUNT 2.1 10^3/ul (4.8-10.8)
[2018-05-25 08:49] LABS: ABNORMAL IP MESSAGE 1; HEMATOCRIT 31.6 % (37.0-47.0); HEMOGLOBIN 9.9 g/dl (12.0-16.0); LYMPHOCYTES # 0.2 10^3/ul (0.8-2.9); LYMPHOCYTES % 9.8 % (15.0-51.0); MEAN CORPUSCULAR HEMOGLOBIN 30.3 pg (29.0-33.0); MEAN CORPUSCULAR HGB CONC 31.3 g/dl (32.0-37.0); MEAN CORPUSCULAR VOLUME 96.6 fl (82.0-101.0); MEAN PLATELET VOLUME 9.6 fl (7.4-10.4); MONOCYTES % 1.5 % (0.0-11.0); NEUTROPHIL # 1.8 10^3/ul (1.6-7.5); NEUTROPHILS % 88.2 % (39.0-77.0); PLATELET COUNT 187 10^3/UL (140-415); RED BLOOD COUNT 3.27 10^6/ul (4.20-5.40)
[2018-05-25 08:55] LABS: POSITIVE DIFF @See below
[2018-05-25 08:58] LABS: HEMOGLOBIN A1C 4.8 % (0-5.9)
[2018-05-25] MEDS ORDERED: BUPROPION (XL) 150 MG TAB PO (09:00)
[2018-05-25] MEDS ORDERED: POLYETHYLENE GLYCOL 17 GM PACKET PO ×2 (09:00)
[2018-05-25 09:28] LABS: ALANINE AMINOTRANSFERASE 23 IU/L (13-69); ALBUMIN 3.7 g/dl (3.3-4.9); ALBUMIN/GLOBULIN RATIO 1.23; ALKALINE PHOSPHATASE 93 IU/L (42-121); ANION GAP 12 (8-16); ASPARTATE AMINO TRANSFERASE 21 IU/L (15-46); BILIRUBIN,INDIRECT 0.2 mg/dl (0-1.1); BILIRUBIN,TOTAL 0.2 mg/dl (0.2-1.3); BLOOD UREA NITROGEN 7 mg/dl (7-20); CALCIUM 9.2 mg/dl (8.4-10.2); CARBON DIOXIDE 26 mmol/L (21-31); CHLORIDE 105 mmol/L (97-110); CREATININE 0.46 mg/dl (0.44-1.00); GLUCOSE 135 mg/dl (70-220); POTASSIUM 4.5 mmol/L (3.5-5.1); SODIUM 138 mmol/L (135-144); TOTAL PROTEIN 6.7 g/dl (6.1-8.1)
[2018-05-25 10:23] LABS: ANISOCYTOSIS 1+ (0-0); GIANT THROMBO% (M) 1 % (0-0); LYMPHOCYTES #M 0.1 10^3/ul (0.8-2.9); LYMPHOCYTES % (M) 7 % (15-51); MICROCYTOSIS 1+ (0-0); MONOCYTES % (M) 1 % (0-11); PLATELET ESTIMATE NORMAL; POLYCHROMASIA 1+ (0-0); SEGMENTED NEUTROPHILS (M) % 92 % (39-77); SMUDGE%M 12 % (0-0); SPHEROCYTES 1+ (0-0)
[2018-05-25] MEDS: LORAZEPAM 0.5 MG TAB PO (11:54)
[2018-05-25 12:08] LABS: ADD UMIC NO; UR ASCORBIC ACID 40 mg/dL (NEGATIVE); UR BILIRUBIN (Dip) NEGATIVE (NEGATIVE); UR BLOOD (Dip) NEGATIVE (NEGATIVE); UR CLARITY CLEAR (CLEAR); UR COLOR STRAW (YELLOW); UR GLUCOSE (Dip) 1+ mg/dL (NEGATIVE); UR KETONES (Dip) 2+ mg/dL (NEGATIVE); UR LEUKOCYTE ESTERASE (Dip) NEGATIVE Leu/ul (NEGATIVE); UR NITRITE (Dip) NEGATIVE (NEGATIVE); UR SPECIFIC GRAVITY (Dip) 1.016 (1.003-1.030); UR TOTAL PROTEIN (Dip) NEGATIVE (NEGATIVE); UR UROBILINOGEN (Dip) NEGATIVE (NEGATIVE)
[2018-05-25] MEDS: MESNA IV (22:08)
[2018-05-25] MEDS: ONDANSETRON INJ 16 MG, DEXAMETHASONE 10 MG/ML 10 MG in SOD CHLORIDE 0.9% 50 ML IVPB (22:08)
[2018-05-25] MEDS: SOD CHLORIDE 0.9% IV ×2 (22:08→23:42)
[2018-05-25] MEDS: DIPHENHYDRAMINE 50 MG INJ IV (22:08)
[2018-05-25] MEDS: IFOSFAMIDE IV (23:42)
[2018-05-26] MEDS: SOD CHLORIDE 0.9% 1,000 ML IV ×3 (01:49→22:26)
[2018-05-26] MEDS: HYDROmorphONE 4 MG TAB PO ×4 (06:00→21:21)
[2018-05-26] MEDS: CYCLOBENZAPRINE 10 MG TAB PO ×2 (07:52→16:51)
[2018-05-26] MEDS: LORAZEPAM 0.5 MG TAB PO ×2 (07:52→20:18)
[2018-05-26] MEDS: GABAPENTIN 300 MG CAP PO ×3 (09:07→22:27)
[2018-05-26] MEDS: BUPROPION (XL) 150 MG TAB PO (09:07)
[2018-05-26] MEDS: morphine (ER) 30 MG TAB PO ×2 (09:08→22:27)
[2018-05-26] MEDS: POLYETHYLENE GLYCOL 17 GM PACKET PO (09:08)
[2018-05-26] MEDS: DOCUSATE SODIUM 100 MG CAP PO ×2 (09:08→21:00)
[2018-05-26 10:16] LABS: ADD UMIC NO; UR ASCORBIC ACID 40 mg/dL (NEGATIVE); UR BILIRUBIN (Dip) NEGATIVE (NEGATIVE); UR BLOOD (Dip) NEGATIVE (NEGATIVE); UR CLARITY CLEAR (CLEAR); UR COLOR STRAW (YELLOW); UR GLUCOSE (Dip) 1+ mg/dL (NEGATIVE); UR KETONES (Dip) 2+ mg/dL (NEGATIVE); UR LEUKOCYTE ESTERASE (Dip) NEGATIVE Leu/ul (NEGATIVE); UR NITRITE (Dip) NEGATIVE (NEGATIVE); UR SPECIFIC GRAVITY (Dip) 1.013 (1.003-1.030); UR TOTAL PROTEIN (Dip) NEGATIVE (NEGATIVE); UR UROBILINOGEN (Dip) NEGATIVE (NEGATIVE)
[2018-05-26] MEDS: ONDANSETRON INJ 16 MG, DEXAMETHASONE 10 MG/ML 10 MG in SOD CHLORIDE 0.9% 50 ML IVPB (22:29)
[2018-05-26] MEDS: DIPHENHYDRAMINE 50 MG INJ IV (22:33)
[2018-05-26] MEDS: MESNA IV (22:40)
[2018-05-26] MEDS: SOD CHLORIDE 0.9% IV ×2 (22:40→23:17)
[2018-05-26] MEDS: IFOSFAMIDE IV (23:17)
[2018-05-27] MEDS: HYDROmorphONE 4 MG TAB PO ×5 (02:19→19:02)
[2018-05-27] MEDS: CYCLOBENZAPRINE 10 MG TAB PO ×3 (02:21→19:02)
[2018-05-27 05:16] LABS: ADD MAN DIFF? NO
[2018-05-27 05:17] LABS: ABNORMAL IP MESSAGE 1; BASOPHILS % 0.2 % (0.0-2.0); HEMATOCRIT 32.3 % (37.0-47.0); LYMPHOCYTES # 0.2 10^3/ul (0.8-2.9); LYMPHOCYTES % 3.6 % (15.0-51.0); MEAN CORPUSCULAR HEMOGLOBIN 29.9 pg (29.0-33.0); MEAN CORPUSCULAR VOLUME 96.4 fl (82.0-101.0); MEAN PLATELET VOLUME 9.8 fl (7.4-10.4); MONOCYTE # 0.1 10^3/ul (0.3-0.9); MONOCYTES % 2.7 % (0.0-11.0); NEUTROPHIL # 4.4 10^3/ul (1.6-7.5); NEUTROPHILS % 92.2 % (39.0-77.0); PLATELET COUNT 144 10^3/UL (140-415); RED BLOOD COUNT 3.35 10^6/ul (4.20-5.40); RED CELL DISTRIBUTION WIDTH 17.6 % (11.5-14.5)
[2018-05-27 05:17] LABS: WHITE BLOOD COUNT 4.8 10^3/ul (4.8-10.8)
[2018-05-27 05:44] LABS: ALANINE AMINOTRANSFERASE 23 IU/L (13-69); ALBUMIN 3.3 g/dl (3.3-4.9); ALBUMIN/GLOBULIN RATIO 1.26; ALKALINE PHOSPHATASE 82 IU/L (42-121); ANION GAP 10 (8-16); ASPARTATE AMINO TRANSFERASE 13 IU/L (15-46); BILIRUBIN,INDIRECT 0.2 mg/dl (0-1.1); BILIRUBIN,TOTAL 0.2 mg/dl (0.2-1.3); BLOOD UREA NITROGEN 7 mg/dl (7-20); CALCIUM 8.7 mg/dl (8.4-10.2); CARBON DIOXIDE 26 mmol/L (21-31); CHLORIDE 108 mmol/L (97-110); CREATININE 0.43 mg/dl (0.44-1.00); GLUCOSE 113 mg/dl (70-220); SODIUM 140 mmol/L (135-144); TOTAL PROTEIN 5.9 g/dl (6.1-8.1)
[2018-05-27 06:01] LABS: POSITIVE DIFF @See below
[2018-05-27] MEDS: BUPROPION (XL) 150 MG TAB PO (08:52)
[2018-05-27] MEDS: POLYETHYLENE GLYCOL 17 GM PACKET PO (08:53)
[2018-05-27] MEDS: GABAPENTIN 300 MG CAP PO ×3 (08:53→20:24)
[2018-05-27] MEDS: LORAZEPAM 0.5 MG TAB PO (08:53)
[2018-05-27] MEDS: morphine (ER) 30 MG TAB PO ×2 (08:53→20:24)
[2018-05-27] MEDS: DOCUSATE SODIUM 100 MG CAP PO ×2 (08:53→20:24)
[2018-05-27] MEDS: SOD CHLORIDE 0.9% 1,000 ML IV ×2 (09:37→21:30)
[2018-05-27 10:03] LABS: ADD UMIC NO; UR ASCORBIC ACID NEGATIVE (NEGATIVE); UR BILIRUBIN (Dip) NEGATIVE (NEGATIVE); UR BLOOD (Dip) NEGATIVE (NEGATIVE); UR CLARITY CLEAR (CLEAR); UR COLOR STRAW (YELLOW); UR GLUCOSE (Dip) 1+ mg/dL (NEGATIVE); UR KETONES (Dip) 1+ mg/dL (NEGATIVE); UR LEUKOCYTE ESTERASE (Dip) NEGATIVE Leu/ul (NEGATIVE); UR NITRITE (Dip) NEGATIVE (NEGATIVE); UR SPECIFIC GRAVITY (Dip) 1.008 (1.003-1.030); UR TOTAL PROTEIN (Dip) NEGATIVE (NEGATIVE); UR UROBILINOGEN (Dip) NEGATIVE (NEGATIVE)
[2018-05-27] MEDS: FILGRASTIM 480 MCG INJ SC (18:47)
[2018-05-27] MEDS: IOHEXOL 300MG/ML 150 ML BTL (19:40)
[2018-05-27] MEDS: SOD CHLORIDE 0.9% 100 ML (19:41)
[2018-05-27] MEDS: HEPARIN (100 UNITS/ML) 5 ML SYG CATHETER (23:05)
[2019-05-27] MEDS ORDERED: FILGRASTIM 480 MCG INJ SC (17:00)
== END 2018-05-27 23:30 | disposition home or self-care (01) | DRG 847 ==
LOC: MS1 11:28
PROC: 3E04305 Introduction of Other Antineoplastic into Central Vein, Percutaneous Approach (ICD-10-PCS; principal; 2018-05-24)
DX: Z51.11 Encounter for antineoplastic chemotherapy (principal); C79.51 Secondary malignant neoplasm of bone; C55 Malignant neoplasm of uterus, part unspecified; G89.3 Neoplasm related pain (acute) (chronic); F41.9 Anxiety disorder, unspecified; D70.9 Neutropenia, unspecified
CPT/HCPCS: 70491; 80048; 80053; 81003; 83036; 85025; 87081; J9209

== ENCOUNTER 2018-10-06 01:23 | Inpatient (IN) | payer OTHER, MEDICAID ==
[2018-10-06] MEDS: HYDROmorphONE 2 MG/ML SYG IV ×7 (02:23→21:19)
[2018-10-06] MEDS: ONDANSETRON 4 MG INJ IV ×3 (02:23→21:37)
[2018-10-06 02:24] LABS: ADD MAN DIFF? NO
[2018-10-06 02:26] LABS: WHITE BLOOD COUNT 18.5 10^3/ul (4.8-10.8)
[2018-10-06 02:26] LABS: BASOPHIL # 0.1 10^3/ul (0.0-0.1); BASOPHILS % 0.3 % (0.0-2.0); EOSINOPHILS # 0.1 10^3/ul (0.0-0.5); EOSINOPHILS % 0.6 % (0.0-7.0); HEMATOCRIT 30.6 % (37.0-47.0); HEMOGLOBIN 9.6 g/dl (12.0-16.0); LYMPHOCYTES # 0.8 10^3/ul (0.8-2.9); LYMPHOCYTES % 4.2 % (15.0-51.0); MEAN CORPUSCULAR HEMOGLOBIN 27.5 pg (29.0-33.0); MEAN CORPUSCULAR HGB CONC 31.4 g/dl (32.0-37.0); MEAN CORPUSCULAR VOLUME 87.7 fl (82.0-101.0); MEAN PLATELET VOLUME 8.8 fl (7.4-10.4); MONOCYTES % 5.2 % (0.0-11.0); NEUTROPHIL # 16.4 10^3/ul (1.6-7.5); NEUTROPHILS % 88.7 % (39.0-77.0); PLATELET COUNT 327 10^3/UL (140-415); RED BLOOD COUNT 3.49 10^6/ul (4.20-5.40); RED CELL DISTRIBUTION WIDTH 13.2 % (11.5-14.5)
[2018-10-06 02:28] LABS: ADD UMIC NO; UR AMORPHOUS CRYSTAL FEW /HPF (NONE SEEN); UR ASCORBIC ACID NEGATIVE (NEGATIVE); UR BACTERIA FEW /HPF (NONE SEEN); UR BILIRUBIN (Dip) NEGATIVE (NEGATIVE); UR BLOOD (Dip) NEGATIVE (NEGATIVE); UR CLARITY SLIGHTLY CLOUDY (CLEAR); UR COLOR YELLOW (YELLOW); UR GLUCOSE (Dip) NEGATIVE (NEGATIVE); UR KETONES (Dip) NEGATIVE (NEGATIVE); UR LEUKOCYTE ESTERASE (Dip) NEGATIVE Leu/ul (NEGATIVE); UR MUCUS FEW /HPF (NONE SEEN); UR NITRITE (Dip) NEGATIVE (NEGATIVE); UR RBC 3 /HPF (0-5); UR SPECIFIC GRAVITY (Dip) 1.013 (1.003-1.030); UR SQUAMOUS EPITHELIAL CELL FEW /HPF (FEW); UR TOTAL PROTEIN (Dip) NEGATIVE (NEGATIVE); UR UROBILINOGEN (Dip) 2+ mg/dL (NEGATIVE); UR WBC 5 /HPF (0-5)
[2018-10-06 02:56] LABS: ALANINE AMINOTRANSFERASE 14 IU/L (13-69); ALBUMIN 3.6 g/dl (3.3-4.9); ALBUMIN/GLOBULIN RATIO 1.12; ALKALINE PHOSPHATASE 146 IU/L (42-121); ANION GAP 11 (5-13); ASPARTATE AMINO TRANSFERASE 13 IU/L (15-46); BLOOD UREA NITROGEN 7 mg/dl (7-20); CALCIUM 9.3 mg/dl (8.4-10.2); CARBON DIOXIDE 30 mmol/L (21-31); CHLORIDE 99 mmol/L (97-110); CREATININE 0.53 mg/dl (0.44-1.00); Estimated GFR > 60 mL/min (>60); GLUCOSE 102 mg/dl (70-220); LIPASE 24 U/L (23-300); SODIUM 140 mmol/L (135-144); TOTAL PROTEIN 6.8 g/dl (6.1-8.1)
[2018-10-06] MEDS ORDERED: ACETAMINOPHEN 325 MG TAB PO ×2 (04:00→06:00)
[2018-10-06] MEDS ORDERED: BISACODYL 10 MG SUPP PR (06:00)
[2018-10-06] MEDS: HYDROmorphONE 1 MG/ML SYG IV (06:13)
[2018-10-06] MEDS: PANTOPRAZOLE 40 MG INJ IV (06:20)
[2018-10-06] MEDS: LORAZEPAM 1 MG TAB PO ×2 (06:26→21:19)
[2018-10-06] MEDS: GABAPENTIN 300 MG CAP PO ×3 (08:24→21:20)
[2018-10-06] MEDS: HYDROCODONE/APAP (5/325) TAB PO ×2 (08:25→16:51)
[2018-10-06] MEDS ORDERED: VANCOMYCIN IV PER PHARMACY XX (08:30)
[2018-10-06] MEDS: IOHEXOL 14.3 MG(I)/ML (ADULT) BTL PO (09:59)
[2018-10-06] MEDS: PIPER-TAZO 3.375 GM IV (PMX) 100 ML IVPB ×3 (10:02→18:00)
[2018-10-06] MEDS: DEXTROSE 5%-0.45% NACL 1,000 ML IV (10:02)
[2018-10-06] MEDS: VANCOMYCIN HCL 1.5 GM in SOD CHLORIDE 0.9% 250 ML IVPB (11:39)
[2018-10-06] MEDS: morphine (ER) 30 MG TAB PO ×2 (11:40→21:20)
[2018-10-06] MEDS ORDERED: PIPER-TAZO 3.375 GM IV (PMX) 100 ML IVPB (12:00)
[2018-10-06] MEDS: IOHEXOL 300MG/ML 150 ML BTL (14:09)
[2018-10-06] MEDS: SOD CHLORIDE 0.9% 100 ML (14:10)
[2018-10-07] MEDS: DEXTROSE 5%-0.45% NACL 1,000 ML IV ×3 (00:01→17:36)
[2018-10-07] MEDS: HYDROmorphONE 2 MG/ML SYG IV ×9 (00:02→21:12)
[2018-10-07] MEDS: PIPER-TAZO 3.375 GM IV (PMX) 100 ML IVPB ×5 (00:02→23:42)
[2018-10-07] MEDS: HYDROCODONE/APAP (5/325) TAB PO ×3 (04:32→18:05)
[2018-10-07 05:13] LABS: ADD MAN DIFF? NO
[2018-10-07 05:20] LABS: WHITE BLOOD COUNT 15.9 10^3/ul (4.8-10.8)
[2018-10-07 05:20] LABS: BASOPHIL # 0.1 10^3/ul (0.0-0.1); BASOPHILS % 0.3 % (0.0-2.0); EOSINOPHILS # 0.2 10^3/ul (0.0-0.5); EOSINOPHILS % 1.1 % (0.0-7.0); HEMATOCRIT 26.6 % (37.0-47.0); LYMPHOCYTES # 0.8 10^3/ul (0.8-2.9); LYMPHOCYTES % 4.9 % (15.0-51.0); MEAN CORPUSCULAR HEMOGLOBIN 26.9 pg (29.0-33.0); MEAN CORPUSCULAR HGB CONC 30.1 g/dl (32.0-37.0); MEAN CORPUSCULAR VOLUME 89.6 fl (82.0-101.0); MEAN PLATELET VOLUME 9.5 fl (7.4-10.4); MONOCYTE # 0.7 10^3/ul (0.3-0.9); MONOCYTES % 4.6 % (0.0-11.0); NEUTROPHIL # 14.1 10^3/ul (1.6-7.5); NEUTROPHILS % 88.3 % (39.0-77.0); PLATELET COUNT 293 10^3/UL (140-415); RED BLOOD COUNT 2.97 10^6/ul (4.20-5.40); RED CELL DISTRIBUTION WIDTH 13.3 % (11.5-14.5)
[2018-10-07] MEDS: PANTOPRAZOLE 40 MG INJ IV (05:38)
[2018-10-07] MEDS: GABAPENTIN 300 MG CAP PO ×3 (09:35→21:12)
[2018-10-07] MEDS: morphine (ER) 30 MG TAB PO ×2 (09:35→21:12)
[2018-10-07] MEDS: VANCOMYCIN HCL 1.5 GM in SOD CHLORIDE 0.9% 250 ML IVPB ×2 (09:35→21:20)
[2018-10-07] MEDS: ONDANSETRON 4 MG INJ IV ×2 (10:06→21:20)
[2018-10-07] MEDS: ENOXAPARIN 40 MG/0.4 ML SYG SC (17:40)
[2018-10-07] MEDS: LORAZEPAM 1 MG TAB PO (21:12)
[2018-10-07] MEDS: DOCUSATE SODIUM 100 MG CAP PO (21:20)
[2018-10-08] MEDS: HYDROmorphONE 2 MG/ML SYG IV ×6 (01:39→10:33)
[2018-10-08] MEDS: PANTOPRAZOLE 40 MG INJ IV ×2 (05:36→20:46)
[2018-10-08] MEDS: HYDROCODONE/APAP (5/325) TAB PO (05:37)
[2018-10-08] MEDS: PIPER-TAZO 3.375 GM IV (PMX) 100 ML IVPB ×3 (05:38→17:05)
[2018-10-08 05:50] LABS: ADD MAN DIFF? NO
[2018-10-08 06:01] LABS: WHITE BLOOD COUNT 20.7 10^3/ul (4.8-10.8)
[2018-10-08 06:01] LABS: BASOPHIL # 0.1 10^3/ul (0.0-0.1); BASOPHILS % 0.3 % (0.0-2.0); EOSINOPHILS # 0.1 10^3/ul (0.0-0.5); EOSINOPHILS % 0.5 % (0.0-7.0); HEMATOCRIT 28.9 % (37.0-47.0); HEMOGLOBIN 8.8 g/dl (12.0-16.0); LYMPHOCYTES # 0.8 10^3/ul (0.8-2.9); MEAN CORPUSCULAR HEMOGLOBIN 27.1 pg (29.0-33.0); MEAN CORPUSCULAR HGB CONC 30.4 g/dl (32.0-37.0); MEAN CORPUSCULAR VOLUME 88.9 fl (82.0-101.0); MEAN PLATELET VOLUME 9.2 fl (7.4-10.4); MONOCYTE # 0.8 10^3/ul (0.3-0.9); MONOCYTES % 4.1 % (0.0-11.0); NEUTROPHIL # 18.7 10^3/ul (1.6-7.5); NEUTROPHILS % 90.3 % (39.0-77.0); PLATELET COUNT 347 10^3/UL (140-415); RED BLOOD COUNT 3.25 10^6/ul (4.20-5.40); RED CELL DISTRIBUTION WIDTH 13.2 % (11.5-14.5)
[2018-10-08 06:25] LABS: ANION GAP 3 (5-13); BLOOD UREA NITROGEN 4 mg/dl (7-20); CALCIUM 8.7 mg/dl (8.4-10.2); CARBON DIOXIDE 30 mmol/L (21-31); CHLORIDE 106 mmol/L (97-110); CREATININE 0.58 mg/dl (0.44-1.00); Estimated GFR > 60 mL/min (>60); GLUCOSE 97 mg/dl (70-220); SODIUM 139 mmol/L (135-144)
[2018-10-08 06:46] LABS: PHOSPHORUS 4.2 mg/dl (2.5-4.9)
[2018-10-08] MEDS: GABAPENTIN 300 MG CAP PO ×3 (08:56→20:46)
[2018-10-08] MEDS: morphine (ER) 30 MG TAB PO (08:56)
[2018-10-08] MEDS: VANCOMYCIN HCL 1.5 GM in SOD CHLORIDE 0.9% 250 ML IVPB ×2 (08:57→23:25)
[2018-10-08] MEDS: DEXTROSE 5%-0.45% NACL 1,000 ML IV ×2 (08:57→18:58)
[2018-10-08] MEDS: LORAZEPAM 1 MG TAB PO ×2 (09:25→20:46)
[2018-10-08] MEDS: ENOXAPARIN 40 MG/0.4 ML SYG SC (09:38)
[2018-10-08] MEDS: HYDROmorphONE 0.2 MG/ML PCA IV ×3 (10:59→20:24)
[2018-10-08] MEDS ORDERED: NALOXONE (0.4 MG/ML) INJ IV ×2 (11:30)
[2018-10-08] MEDS: ACETAMINOPHEN 325 MG TAB PO ×2 (12:28→17:03)
[2018-10-08] MEDS: DEXAMETHASONE 10 MG/ML 1 ML INJ IV ×2 (12:28→20:46)
[2018-10-08] MEDS: MINERAL OIL 30ML CUP PO (17:02)
[2018-10-08] MEDS: LUBIPROSTONE 24 MCG CAP PO (17:03)
[2018-10-08] MEDS: ONDANSETRON 4 MG INJ IV (20:54)
[2018-10-08] MEDS ORDERED: morphine (ER) 30 MG TAB PO ×2 (21:00)
[2018-10-08 21:09] LABS: VANCOMYCIN,TROUGH 11.4 ug/ml (10.0-20.0)
[2018-10-08] MEDS: morphine (ER) 15 MG TAB PO (21:49)
[2018-10-09] MEDS: HYDROmorphONE 0.2 MG/ML PCA IV ×6 (00:33→21:11)
[2018-10-09] MEDS: LUBIPROSTONE 24 MCG CAP PO ×3 (00:36→20:26)
[2018-10-09] MEDS: ACETAMINOPHEN 325 MG TAB PO ×4 (00:36→18:25)
[2018-10-09] MEDS: SOD CHLORIDE 0.9% 1,000 ML IV ×2 (01:30→10:56)
[2018-10-09] MEDS: PIPER-TAZO 3.375 GM IV (PMX) 100 ML IVPB ×4 (02:32→18:32)
[2018-10-09 05:24] LABS: ABNORMAL IP MESSAGE 1; BASOPHILS % 0.2 % (0.0-2.0); HEMATOCRIT 29.6 % (37.0-47.0); HEMOGLOBIN 9.1 g/dl (12.0-16.0); LYMPHOCYTES # 0.4 10^3/ul (0.8-2.9); LYMPHOCYTES % 1.5 % (15.0-51.0); MEAN CORPUSCULAR HEMOGLOBIN 27.4 pg (29.0-33.0); MEAN CORPUSCULAR HGB CONC 30.7 g/dl (32.0-37.0); MEAN CORPUSCULAR VOLUME 89.2 fl (82.0-101.0); MEAN PLATELET VOLUME 9.3 fl (7.4-10.4); MONOCYTE # 0.1 10^3/ul (0.3-0.9); MONOCYTES % 0.4 % (0.0-11.0); NEUTROPHIL # 23.8 10^3/ul (1.6-7.5); NEUTROPHILS % 96.8 % (39.0-77.0); PLATELET COUNT 359 10^3/UL (140-415); RED BLOOD COUNT 3.32 10^6/ul (4.20-5.40); RED CELL DISTRIBUTION WIDTH 13.3 % (11.5-14.5)
[2018-10-09 05:24] LABS: WHITE BLOOD COUNT 24.6 10^3/ul (4.8-10.8)
[2018-10-09 05:25] LABS: ADD MAN DIFF? NO
[2018-10-09 05:43] LABS: POSITIVE DIFF @See below
[2018-10-09 06:09] LABS: ANION GAP 9 (5-13); BLOOD UREA NITROGEN 5 mg/dl (7-20); CALCIUM 9.5 mg/dl (8.4-10.2); CARBON DIOXIDE 28 mmol/L (21-31); CHLORIDE 104 mmol/L (97-110); Estimated GFR > 60 mL/min (>60); GLUCOSE 173 mg/dl (70-220); POTASSIUM 3.9 mmol/L (3.5-5.1); SODIUM 141 mmol/L (135-144)
[2018-10-09] MEDS: morphine (ER) 15 MG TAB PO ×2 (08:59→20:26)
[2018-10-09] MEDS: PANTOPRAZOLE 40 MG INJ IV (08:59)
[2018-10-09] MEDS: GABAPENTIN 300 MG CAP PO ×3 (08:59→20:26)
[2018-10-09] MEDS: MINERAL OIL 30ML CUP PO (08:59)
[2018-10-09] MEDS: VANCOMYCIN HCL 1.5 GM in SOD CHLORIDE 0.9% 250 ML IVPB ×2 (09:00→21:16)
[2018-10-09] MEDS: DEXAMETHASONE 10 MG/ML 1 ML INJ IV ×2 (09:00→20:27)
[2018-10-09] MEDS: ENOXAPARIN 40 MG/0.4 ML SYG SC (09:07)
[2018-10-09] MEDS: LORAZEPAM 1 MG TAB PO (12:56)
[2018-10-09] MEDS ORDERED: MEPERIDINE 50 MG INJ IV (14:00)
[2018-10-09] MEDS ORDERED: DEXAMETHASONE 4 MG/ML 1 ML INJ IV (14:00)
[2018-10-09] MEDS ORDERED: DIPHENHYDRAMINE 50 MG INJ IV (14:00)
[2018-10-09] MEDS: ONDANSETRON INJ 16 MG, DEXAMETHASONE 4 MG/ML 10 MG in SOD CHLORIDE 0.9% 50 ML IV (15:10)
[2018-10-09] MEDS: DIPHENHYDRAMINE 50 MG INJ IV (15:13)
[2018-10-09] MEDS: SOD CHLORIDE 0.9% IV ×3 (15:21→16:34)
[2018-10-09] MEDS: MESNA IV ×2 (15:21→16:22)
[2018-10-09] MEDS: IFOSFAMIDE IV (16:34)
[2018-10-09] MEDS: PANTOPRAZOLE (EC) 40 MG TAB PO (18:25)
[2018-10-09] MEDS: ONDANSETRON 4 MG INJ IV (21:16)
[2018-10-10] MEDS: ACETAMINOPHEN 325 MG TAB PO ×5 (00:21→23:30)
[2018-10-10] MEDS: PIPER-TAZO 3.375 GM IV (PMX) 100 ML IVPB ×5 (00:21→23:14)
[2018-10-10] MEDS: LORAZEPAM 1 MG TAB PO ×3 (01:00→23:32)
[2018-10-10] MEDS: HYDROmorphONE 0.2 MG/ML PCA IV ×6 (01:34→23:26)
[2018-10-10 05:16] LABS: ADD MAN DIFF? NO
[2018-10-10 05:20] LABS: ABNORMAL IP MESSAGE 1; BASOPHILS % 0.2 % (0.0-2.0); HEMATOCRIT 29.5 % (37.0-47.0); HEMOGLOBIN 8.9 g/dl (12.0-16.0); LYMPHOCYTES # 0.4 10^3/ul (0.8-2.9); LYMPHOCYTES % 2.2 % (15.0-51.0); MEAN CORPUSCULAR HGB CONC 30.2 g/dl (32.0-37.0); MEAN CORPUSCULAR VOLUME 89.4 fl (82.0-101.0); MEAN PLATELET VOLUME 9.4 fl (7.4-10.4); MONOCYTE # 0.3 10^3/ul (0.3-0.9); MONOCYTES % 1.3 % (0.0-11.0); NEUTROPHIL # 18.1 10^3/ul (1.6-7.5); NEUTROPHILS % 92.7 % (39.0-77.0); PLATELET COUNT 350 10^3/UL (140-415); RED CELL DISTRIBUTION WIDTH 13.5 % (11.5-14.5)
[2018-10-10 05:20] LABS: WHITE BLOOD COUNT 19.5 10^3/ul (4.8-10.8)
[2018-10-10 05:28] LABS: POSITIVE DIFF @See below
[2018-10-10] MEDS: PANTOPRAZOLE (EC) 40 MG TAB PO ×2 (05:42→17:24)
[2018-10-10] MEDS: SOD CHLORIDE 0.9% 1,000 ML IV ×3 (05:43→19:32)
[2018-10-10 05:50] LABS: ANION GAP 5 (5-13); BLOOD UREA NITROGEN 8 mg/dl (7-20); CALCIUM 9.2 mg/dl (8.4-10.2); CARBON DIOXIDE 29 mmol/L (21-31); CHLORIDE 109 mmol/L (97-110); CREATININE 0.54 mg/dl (0.44-1.00); Estimated GFR > 60 mL/min (>60); GLUCOSE 133 mg/dl (70-220); POTASSIUM 4.2 mmol/L (3.5-5.1); SODIUM 143 mmol/L (135-144)
[2018-10-10 06:44] LABS: ADD UMIC NO; UR ASCORBIC ACID 40 mg/dL (NEGATIVE); UR BILIRUBIN (Dip) NEGATIVE (NEGATIVE); UR BLOOD (Dip) NEGATIVE (NEGATIVE); UR CLARITY CLEAR (CLEAR); UR COLOR YELLOW (YELLOW); UR GLUCOSE (Dip) 1+ mg/dL (NEGATIVE); UR KETONES (Dip) 2+ mg/dL (NEGATIVE); UR LEUKOCYTE ESTERASE (Dip) NEGATIVE Leu/ul (NEGATIVE); UR NITRITE (Dip) NEGATIVE (NEGATIVE); UR SPECIFIC GRAVITY (Dip) 1.021 (1.003-1.030); UR TOTAL PROTEIN (Dip) NEGATIVE (NEGATIVE); UR UROBILINOGEN (Dip) NEGATIVE (NEGATIVE)
[2018-10-10] MEDS: LUBIPROSTONE 24 MCG CAP PO ×2 (09:00→20:56)
[2018-10-10] MEDS: GABAPENTIN 300 MG CAP PO ×3 (09:45→20:56)
[2018-10-10] MEDS: morphine (ER) 15 MG TAB PO ×2 (09:48→21:01)
[2018-10-10] MEDS: VANCOMYCIN HCL 1.5 GM in SOD CHLORIDE 0.9% 250 ML IVPB ×2 (09:49→20:58)
[2018-10-10] MEDS: ENOXAPARIN 40 MG/0.4 ML SYG SC (09:50)
[2018-10-10] MEDS: MINERAL OIL 30ML CUP PO (09:51)
[2018-10-10] MEDS: DEXAMETHASONE 10 MG/ML 1 ML INJ IV ×2 (10:11→20:58)
[2018-10-10] MEDS: ONDANSETRON 4 MG INJ IV (10:23)
[2018-10-10] MEDS: DIPHENHYDRAMINE 50 MG INJ IV (16:02)
[2018-10-10] MEDS: ONDANSETRON INJ 16 MG, DEXAMETHASONE 4 MG/ML 10 MG in SOD CHLORIDE 0.9% 50 ML IV (16:03)
[2018-10-10] MEDS: SOD CHLORIDE 0.9% IV ×2 (16:57→17:01)
[2018-10-10] MEDS: MESNA IV (16:57)
[2018-10-10] MEDS: IFOSFAMIDE IV (17:01)
[2018-10-11] MEDS: SOD CHLORIDE 0.9% 1,000 ML IV ×4 (03:25→22:30)
[2018-10-11] MEDS: HYDROmorphONE 0.2 MG/ML PCA IV ×5 (03:38→23:20)
[2018-10-11] MEDS: PANTOPRAZOLE (EC) 40 MG TAB PO ×2 (05:30→18:14)
[2018-10-11] MEDS: ACETAMINOPHEN 325 MG TAB PO ×3 (05:31→18:14)
[2018-10-11] MEDS: PIPER-TAZO 3.375 GM IV (PMX) 100 ML IVPB ×3 (05:31→18:14)
[2018-10-11] MEDS: MINERAL OIL 30ML CUP PO (08:41)
[2018-10-11] MEDS: LUBIPROSTONE 24 MCG CAP PO ×2 (08:41→21:00)
[2018-10-11] MEDS: morphine (ER) 15 MG TAB PO ×2 (08:41→21:17)
[2018-10-11] MEDS: GABAPENTIN 300 MG CAP PO ×3 (08:41→21:17)
[2018-10-11] MEDS: ENOXAPARIN 40 MG/0.4 ML SYG SC (08:42)
[2018-10-11] MEDS: VANCOMYCIN HCL 1.5 GM in SOD CHLORIDE 0.9% 250 ML IVPB ×2 (08:59→21:15)
[2018-10-11] MEDS: DEXAMETHASONE 10 MG/ML 1 ML INJ IV ×3 (09:00→22:25)
[2018-10-11] MEDS: ONDANSETRON INJ 16 MG, DEXAMETHASONE 4 MG/ML 10 MG in SOD CHLORIDE 0.9% 50 ML IV (15:13)
[2018-10-11] MEDS: MESNA IV (15:13)
[2018-10-11] MEDS: SOD CHLORIDE 0.9% IV ×2 (15:13→15:50)
[2018-10-11] MEDS: DIPHENHYDRAMINE 50 MG INJ IV (15:16)
[2018-10-11] MEDS: IFOSFAMIDE IV (15:50)
[2018-10-12] MEDS: ACETAMINOPHEN 325 MG TAB PO ×5 (00:11→23:54)
[2018-10-12] MEDS: PIPER-TAZO 3.375 GM IV (PMX) 100 ML IVPB ×3 (00:53→12:38)
[2018-10-12] MEDS: LORAZEPAM 1 MG TAB PO ×2 (00:53→22:40)
[2018-10-12] MEDS: HYDROmorphONE 0.2 MG/ML PCA IV ×3 (03:20→14:12)
[2018-10-12] MEDS: PANTOPRAZOLE (EC) 40 MG TAB PO ×2 (05:41→18:23)
[2018-10-12 05:45] LABS: ADD MAN DIFF? NO
[2018-10-12 05:51] LABS: ABNORMAL IP MESSAGE 1; BASOPHILS % 0.1 % (0.0-2.0); HEMATOCRIT 29.9 % (37.0-47.0); HEMOGLOBIN 9.1 g/dl (12.0-16.0); LYMPHOCYTES # 0.1 10^3/ul (0.8-2.9); LYMPHOCYTES % 0.8 % (15.0-51.0); MEAN CORPUSCULAR HEMOGLOBIN 27.1 pg (29.0-33.0); MEAN CORPUSCULAR HGB CONC 30.4 g/dl (32.0-37.0); MEAN PLATELET VOLUME 9.4 fl (7.4-10.4); MONOCYTE # 0.3 10^3/ul (0.3-0.9); MONOCYTES % 2.1 % (0.0-11.0); NEUTROPHIL # 13.1 10^3/ul (1.6-7.5); NEUTROPHILS % 96.2 % (39.0-77.0); PLATELET COUNT 285 10^3/UL (140-415); RED BLOOD COUNT 3.36 10^6/ul (4.20-5.40); RED CELL DISTRIBUTION WIDTH 13.9 % (11.5-14.5)
[2018-10-12 05:51] LABS: WHITE BLOOD COUNT 13.6 10^3/ul (4.8-10.8)
[2018-10-12 05:52] LABS: POSITIVE DIFF @See below
[2018-10-12 06:16] LABS: MAGNESIUM 1.8 mg/dl (1.7-2.5)
[2018-10-12 06:16] LABS: PHOSPHORUS 3.2 mg/dl (2.5-4.9)
[2018-10-12 06:18] LABS: ANION GAP 7 (5-13); BLOOD UREA NITROGEN 11 mg/dl (7-20); CARBON DIOXIDE 22 mmol/L (21-31); CHLORIDE 113 mmol/L (97-110); CREATININE 0.39 mg/dl (0.44-1.00); Estimated GFR > 60 mL/min (>60); GLUCOSE 92 mg/dl (70-220); POTASSIUM 3.6 mmol/L (3.5-5.1); SODIUM 142 mmol/L (135-144)
[2018-10-12] MEDS: DEXAMETHASONE 10 MG/ML 1 ML INJ IV (09:00)
[2018-10-12] MEDS: LUBIPROSTONE 24 MCG CAP PO ×2 (09:03→21:01)
[2018-10-12] MEDS: morphine (ER) 15 MG TAB PO (09:03)
[2018-10-12] MEDS: GABAPENTIN 300 MG CAP PO ×3 (09:03→21:01)
[2018-10-12] MEDS: MINERAL OIL 30ML CUP PO (09:03)
[2018-10-12] MEDS: SOD CHLORIDE 0.9% 1,000 ML IV ×2 (09:03→19:00)
[2018-10-12] MEDS: VANCOMYCIN HCL 1.5 GM in SOD CHLORIDE 0.9% 250 ML IVPB (09:08)
[2018-10-12] MEDS: ENOXAPARIN 40 MG/0.4 ML SYG SC (09:08)
[2018-10-12] MEDS: SOD CHLORIDE 0.9% IV (14:12)
[2018-10-12] MEDS: MESNA IV (14:12)
[2018-10-12] MEDS: HYDROmorphONE 4 MG TAB PO (16:34)
[2018-10-12] MEDS: HYDROmorphONE 2 MG/ML SYG IV ×2 (19:58→23:54)
[2018-10-12] MEDS: ONDANSETRON 4 MG INJ IV (20:02)
[2018-10-12] MEDS: morphine (ER) 30 MG TAB PO (21:02)
[2018-10-13] MEDS: SOD CHLORIDE 0.9% 1,000 ML IV ×2 (02:22→17:15)
[2018-10-13] MEDS: ONDANSETRON 4 MG INJ IV ×4 (02:42→21:23)
[2018-10-13] MEDS: HYDROmorphONE 1 MG/ML SYG IV ×3 (02:44→10:52)
[2018-10-13] MEDS: HYDROmorphONE 2 MG/ML SYG IV ×5 (04:45→23:04)
[2018-10-13] MEDS: PANTOPRAZOLE (EC) 40 MG TAB PO ×2 (06:00→18:33)
[2018-10-13] MEDS: ACETAMINOPHEN 325 MG TAB PO ×3 (06:00→18:33)
[2018-10-13 06:09] LABS: ANION GAP 9 (5-13); BLOOD UREA NITROGEN 12 mg/dl (7-20); CALCIUM 8.3 mg/dl (8.4-10.2); CARBON DIOXIDE 19 mmol/L (21-31); CHLORIDE 109 mmol/L (97-110); CREATININE 0.48 mg/dl (0.44-1.00); Estimated GFR > 60 mL/min (>60); GLUCOSE 78 mg/dl (70-220); POTASSIUM 3.2 mmol/L (3.5-5.1); SODIUM 137 mmol/L (135-144)
[2018-10-13] MEDS ORDERED: HYDROmorphONE 4 MG TAB PO ×2 (08:00→12:00)
[2018-10-13] MEDS: MINERAL OIL 30ML CUP PO (08:09)
[2018-10-13] MEDS: LUBIPROSTONE 24 MCG CAP PO ×2 (08:10→21:00)
[2018-10-13] MEDS: GABAPENTIN 300 MG CAP PO ×3 (08:10→21:23)
[2018-10-13] MEDS: ENOXAPARIN 40 MG/0.4 ML SYG SC (08:11)
[2018-10-13] MEDS: morphine (ER) 30 MG TAB PO ×2 (09:05→21:23)
[2018-10-13 10:13] LABS: ADD MAN DIFF? NO
[2018-10-13 10:22] LABS: WHITE BLOOD COUNT 22.5 10^3/ul (4.8-10.8)
[2018-10-13 10:22] LABS: ABNORMAL IP MESSAGE 1; BASOPHILS % 0.1 % (0.0-2.0); HEMATOCRIT 29.2 % (37.0-47.0); HEMOGLOBIN 9.1 g/dl (12.0-16.0); LYMPHOCYTES # 0.2 10^3/ul (0.8-2.9); LYMPHOCYTES % 0.8 % (15.0-51.0); MEAN CORPUSCULAR HEMOGLOBIN 27.1 pg (29.0-33.0); MEAN CORPUSCULAR HGB CONC 31.2 g/dl (32.0-37.0); MEAN CORPUSCULAR VOLUME 86.9 fl (82.0-101.0); MEAN PLATELET VOLUME 9.8 fl (7.4-10.4); MONOCYTE # 0.2 10^3/ul (0.3-0.9); MONOCYTES % 0.7 % (0.0-11.0); NEUTROPHILS % 97.6 % (39.0-77.0); PLATELET COUNT 235 10^3/UL (140-415); RED BLOOD COUNT 3.36 10^6/ul (4.20-5.40); RED CELL DISTRIBUTION WIDTH 13.5 % (11.5-14.5)
[2018-10-13 10:23] LABS: POSITIVE DIFF @See below
[2018-10-13] MEDS ORDERED: VANCOMYCIN IV PER PHARMACY XX (11:00)
[2018-10-13] MEDS: POTASSIUM CHLORIDE (SR) 20 MEQ TAB PO (11:22)
[2018-10-13] MEDS: PIPER-TAZO 3.375 GM IV (PMX) 100 ML IVPB ×2 (11:22→18:33)
[2018-10-13] MEDS: SOD CHLORIDE 0.9% 100 ML (12:36)
[2018-10-13] MEDS: IOHEXOL 300MG/ML 150 ML BTL (12:36)
[2018-10-13] MEDS: VANCOMYCIN HCL 1.5 GM in SOD CHLORIDE 0.9% 250 ML IVPB ×2 (12:57→21:23)
[2018-10-13] MEDS: LORAZEPAM 1 MG TAB PO (21:23)
[2018-10-14] MEDS: SOD CHLORIDE 0.9% 1,000 ML IV ×2 (01:00→08:01)
[2018-10-14] MEDS: PIPER-TAZO 3.375 GM IV (PMX) 100 ML IVPB ×2 (01:21→06:53)
[2018-10-14] MEDS: HYDROmorphONE 2 MG/ML SYG IV ×3 (01:59→07:59)
[2018-10-14] MEDS: ONDANSETRON 4 MG INJ IV (05:11)
[2018-10-14 05:20] LABS: ADD MAN DIFF? NO
[2018-10-14 05:34] LABS: ABNORMAL IP MESSAGE 1; BASOPHILS % 0.1 % (0.0-2.0); EOSINOPHILS % 0.1 % (0.0-7.0); HEMATOCRIT 27.9 % (37.0-47.0); HEMOGLOBIN 8.9 g/dl (12.0-16.0); LYMPHOCYTES # 0.3 10^3/ul (0.8-2.9); LYMPHOCYTES % 1.5 % (15.0-51.0); MEAN CORPUSCULAR HEMOGLOBIN 27.1 pg (29.0-33.0); MEAN CORPUSCULAR HGB CONC 31.9 g/dl (32.0-37.0); MEAN CORPUSCULAR VOLUME 85.1 fl (82.0-101.0); MEAN PLATELET VOLUME 9.6 fl (7.4-10.4); MONOCYTE # 0.1 10^3/ul (0.3-0.9); MONOCYTES % 0.3 % (0.0-11.0); NEUTROPHIL # 21.9 10^3/ul (1.6-7.5); NEUTROPHILS % 96.8 % (39.0-77.0); PLATELET COUNT 189 10^3/UL (140-415); RED BLOOD COUNT 3.28 10^6/ul (4.20-5.40); RED CELL DISTRIBUTION WIDTH 13.6 % (11.5-14.5)
[2018-10-14 05:34] LABS: WHITE BLOOD COUNT 22.6 10^3/ul (4.8-10.8)
[2018-10-14 05:41] LABS: PHOSPHORUS 2.1 mg/dl (2.5-4.9)
[2018-10-14 05:44] LABS: POSITIVE DIFF @See below
[2018-10-14 05:52] LABS: ANION GAP 7 (5-13); BLOOD UREA NITROGEN 7 mg/dl (7-20); CALCIUM 8.2 mg/dl (8.4-10.2); CARBON DIOXIDE 17 mmol/L (21-31); CHLORIDE 114 mmol/L (97-110); CREATININE 0.51 mg/dl (0.44-1.00); Estimated GFR > 60 mL/min (>60); GLUCOSE 88 mg/dl (70-220); POTASSIUM 3.2 mmol/L (3.5-5.1); SODIUM 138 mmol/L (135-144)
[2018-10-14] MEDS: PANTOPRAZOLE (EC) 40 MG TAB PO (06:52)
[2018-10-14] MEDS: ACETAMINOPHEN 325 MG TAB PO ×2 (06:53)
[2018-10-14] MEDS: MINERAL OIL 30ML CUP PO (09:00)
[2018-10-14] MEDS: LUBIPROSTONE 24 MCG CAP PO (09:00)
[2018-10-14] MEDS: VANCOMYCIN HCL 1.5 GM in SOD CHLORIDE 0.9% 250 ML IVPB (09:20)
[2018-10-14] MEDS: GABAPENTIN 300 MG CAP PO (09:22)
[2018-10-14] MEDS: ENOXAPARIN 40 MG/0.4 ML SYG SC (09:27)
[2018-10-14] MEDS: morphine (ER) 30 MG TAB PO (09:29)
[2018-10-14 10:32] LABS: ADD UMIC YES; UR ASCORBIC ACID NEGATIVE (NEGATIVE); UR BILIRUBIN (Dip) NEGATIVE (NEGATIVE); UR BLOOD (Dip) NEGATIVE (NEGATIVE); UR CLARITY CLEAR (CLEAR); UR COLOR STRAW (YELLOW); UR GLUCOSE (Dip) NEGATIVE (NEGATIVE); UR KETONES (Dip) TRACE mg/dL (NEGATIVE); UR LEUKOCYTE ESTERASE (Dip) NEGATIVE Leu/ul (NEGATIVE); UR NITRITE (Dip) NEGATIVE (NEGATIVE); UR RBC 0 /HPF (0-5); UR SPECIFIC GRAVITY (Dip) 1.013 (1.003-1.030); UR TOTAL PROTEIN (Dip) 1+ mg/dl (NEGATIVE); UR UROBILINOGEN (Dip) NEGATIVE (NEGATIVE); UR WBC 2 /HPF (0-5)
[2018-10-14] MEDS: SOD PHOS MONO/DIBAS 250 MG TAB PO (10:37)
[2018-10-14] MEDS: LORAZEPAM 1 MG TAB PO (10:37)
[2018-10-14] MEDS: HEPARIN (100 UNITS/ML) 5 ML SYG CATHETER (11:34)
== END 2018-10-14 12:26 | disposition home or self-care (01) | DRG 543 ==
LOC: E/R 01:23 → MS1 03:46
DX: C79.51 Secondary malignant neoplasm of bone (principal); C79.89 Secondary malignant neoplasm of other specified sites; C55 Malignant neoplasm of uterus, part unspecified; E66.3 Overweight; G89.3 Neoplasm related pain (acute) (chronic); D64.9 Anemia, unspecified; D72.829 Elevated white blood cell count, unspecified; Z68.27 Body mass index [BMI] 27.0-27.9, adult
CPT/HCPCS: 36415; 70491; 71045; 71260; 74177; 80048; 80053; 80202; 81001; 81003; 83690; 83735; 84100; 84703; 85025; 87040; 96374; 96375; 96376; 99285-25; J9209